=== PATIENT | female | born 1970 | race Caucasian/White ===

== ENCOUNTER → 2017-09-04 | Outpatient (CLI) | payer BC ==
[~2017-09-04] MED LIST: BCPILLS PO; FLUO40CA8 PO; OXYC-106 PO; SPRN100 PO; SUMA50TA15 PO; TOPI50TA16 PO
--- NOTE | 2017-09-04 15:24 | MAMMOGRAPHY REPORT ---
BILATERAL DIGITAL SCREENING MAMMOGRAM TOMOSYNTHESIS WITH CAD: 09/04/2017 CLINICAL HISTORY: Patient presents for routine screening. S/P bilateral augmentation. TECHNIQUE: Bilateral CC and MLO views of the breasts with and without implant displacement views were obtained. Tomosynthesis was also performed on the implant displaced views. Current study was also evaluated with a Computer Aided Detection (CAD) system. COMPARISON: Comparison is made to exams dated: 03/06/2011 mammogram and 01/24/2005 mammogram - [facility]. BREAST COMPOSITION: The tissue of both breasts is heterogeneously dense, which may obscure small mas ses. FINDINGS: Bilateral subpectoral saline implants are intact. There is fluctuating nodularity bilater ally, most likely representing fluctuating cysts. No suspicious mass, architectural distortion or clu ster of microcalcifications is seen. IMPRESSION: ACR BI-RADS CATEGORY 1: NEGATIVE There is no mammographic evidence of malignancy. A 1 year screening mammogram is recommended. The pa tient will receive written notification of the results. Approximately 10% of breast cancers are not detected with mammography. A negative mammographic report should not delay biopsy if a clinically suggestive mass is present. Neelima Brock M.D. ay/:09/04/2017 13:22:34 [employer] Helper: Sabrina GÓMEZ(Jose Carlos)(Tara), [facility] letter sent: Normal 1/2 BI-RADS Code: ACR BI-RADS Category 1: Negative
== END | disposition home or self-care (01) ==
LOC: C.MAMM 12:32
PROVIDERS: ATTEND Obstetrics & Gynecology
DX: Z12.31 Encounter for screening mammogram for malignant neoplasm of breast (principal); Z98.82 Breast implant status

== ENCOUNTER → 2017-09-04 | Outpatient (CLI) | payer BC | END | disposition home or self-care (01) | LOC: C.PAPS 15:34 | PROVIDERS: ATTEND Obstetrics & Gynecology | DX: Z01.419 Encounter for gynecological examination (general) (routine) without abnormal findings (principal) ==

== ENCOUNTER 2017-11-20 16:17 | Emergency (ER) | payer BC ==
[~2017-11-20] VITALS: Ht 165.1 cm; Wt 49.6 kg
[~2017-11-20 16:17] MED LIST changes: -OXYC-106 PO; +OXYC-594 PO
[2017-11-20 16:20] VITALS: TEMP 36.7
[2017-11-20] MEDS ORDERED: SODIUM CHLORIDE 0.9% 1000ML 1,000 ML IV SCH (16:27)
--- NOTE | 2017-11-20 16:43 | EMERGENCY ROOM VISIT NOTE ---
History Report prepared by Barby: Su Moreno Under the Supervision of: Dr. Destinee Morales M.D. First contact with patient: 16:26 Chief Complaint: STROKE SYMPTOMS Stated Complaint: SLURRED SPEECH, CONFUSION, DIZZY, MEMORY LOSS History of Present Illness The patient is a 46 year old female who presents to the Emergency Room with complaints of confusion and "being out of it" that primarily happened yesterday while at work. She reports she works in [place] and when she was driving to work, she took half a tablet of sumatriptan and a nausea medication for nausea and a headache. She states her headache worsened while she was at work and she began slurring her speech, getting confused, having a difficult time focusing, and becoming dizzy. The patient describes her episode as "being in a fog" and notes she lost 1 hour of her time. She states she did not "take too many medications" at once. She believes she took her sumatriptan and nausea medication 6 hours after her regularly scheduled medications. Pt's medications incluse topamax, percocet, adderall and prozac. Pt realized "how bad" she was at work yesterday in speaking with her colleagues today. She is concerned that she had a stroke. Source of History: patient Onset: yesterday Position: other (global) Quality: other (stroke symptoms) Associated Symptoms: No urinary symptoms Review of Systems See HPI for pertinent positives & negatives. A total of 10 systems reviewed and were otherwise negative. Past Medical & Surgical Medical Problems: (1) No significant past medical history Family History Not known due to adoption Social History Smoking Status: Never Smoker Smokeless Tobacco Use: No Alcohol Use: none Marital Status: Occupation Status: employed Current/Historical Medications Scheduled Amphetamine-Dextroamphetamine 20MG (Adderall 20MG), 20 MG PO DAILY Control Pills ( Control Pills), 1 TAB PO DAILY Fluoxetine (Prozac), 40 MG PO QD@08 Spironolactone (Spironolactone), 100 MG PO darshan Sumatriptan Succinate (Imitrex), 50 MG PO PRN Topiramate (Topamax), 50 MG PO BID Scheduled PRN Oxycodone/Acetaminophen 10MG/325MG (Percocet 10MG/325MG), 1 TAB PO QID PRN for Pain Allergies Coded Allergies: Gabapentin (Unverified Adverse Reaction, Severe, "EVERY SIDE AFFECT YOU CAN GET WITH THIS DRUG", 11/20/17) Pregabalin (Unverified Adverse Reaction, Severe, "EVERY SIDE AFFECT YOU CAN GET WITH THIS DRUG", 11/20/17) Physical Exam Vital Signs Date Time Temp Pulse Resp B/P (MAP) Pulse Ox O2 Delivery O2 Flow Rate FiO2 11/20/17 21:50 61 16 105/64 98 11/20/17 20:51 68 16 100/64 98 Room Air 11/20/17 19:51 79 18 120/67 99 Room Air 11/20/17 18:15 72 16 112/61 96 Room Air 11/20/17 16:59 98 Room Air 11/20/17 16:56 82 11/20/17 16:20 36.7 82 19 103/70 Room Air Physical Exam Vital signs reviewed. General: Well-appearing female, in no significant distress. HEENT: No scleral icterus, PERRLA, neck supple. Atraumatic. Cardiovascular: Regular rate and rhythm, no extra sounds. Pulmonary: Clear to auscultation bilaterally, normal work of breathing. Abdomen: Soft, nontender, nondistended, positive bowel sounds. Musculoskeletal: Atraumatic, no peripheral edema. Neurologic: Cerebellar exam in intact. Speech is clear. Patient awake alert and oriented x 3, full strength in all 4 extremities. Cranial nerves 2 through 12 grossly intact. No meningeal signs Skin: Warm, dry, no rash Medical Decision & Procedures ER Provider Diagnostic Interpretation: Radiology results as stated below per my review and radiologist interpretation: HEAD WITHOUT CONTRAST (CT) CLINICAL HISTORY: 46 years-old Female with Stroke. Acute strokelike symptoms TECHNIQUE: Multiple axial CT images of the head were obtained without contrast. A dose lowering technique was utilized adhering to the principles of ALARA. CT DOSE: 638.56 mGycm COMPARISON: None. FINDINGS: No acute intracranial hemorrhage, midline shift, intracranial mass, hydrocephalus, territorial ischemia or abnormal extra-axial collection. The calvarium is intact. The paranasal sinuses, mastoid air cells, and middle ear cavities are clear. IMPRESSION: No acute intracranial abnormality. The above report was generated using voice recognition software. It may contain grammatical, syntax or spelling errors. Electronically signed by: Selvin Strong M.D. 11/20/2017 5:17 PM Laboratory Results 11/20/17 16:52 Red Blood Count 4.15, Mean Corpuscular Volume 98.3, Mean Corpuscular Hemoglobin 33.5, Mean Corpuscular Hemoglobin Concent 34.1, Mean Platelet Volume 8.7, Neutrophils (%) (Auto) 54.3, Lymphocytes (%) (Auto) 36.3, Monocytes (%) (Auto) 6.3, Eosinophils (%) (Auto) 2.6, Basophils (%) (Auto) 0.3, Neutrophils # (Auto) 3.52, Lymphocytes # (Auto) 2.35, Monocytes # (Auto) 0.41, Eosinophils # (Auto) 0.17, Basophils # (Auto) 0.02 11/20/17 16:52 Test 11/20/17 16:52 11/20/17 17:45 11/20/17 19:43 White Blood Count 6.48 K/uL (4.8-10.8) Red Blood Count 4.15 M/uL (4.2-5.4) Hemoglobin 13.9 g/dL (12.0-16.0) Hematocrit 40.8 % (37-47) Mean Corpuscular Volume 98.3 fL (80-100) Mean Corpuscular Hemoglobin 33.5 pg (25-34) Mean Corpuscular Hemoglobin Concent 34.1 g/dl (32-36) Platelet Count 256 K/uL (130-400) Mean Platelet Volume 8.7 fL (7.4-10.4) Neutrophils (%) (Auto) 54.3 % Lymphocytes (%) (Auto) 36.3 % Monocytes (%) (Auto) 6.3 % Eosinophils (%) (Auto) 2.6 % Basophils (%) (Auto) 0.3 % Neutrophils # (Auto) 3.52 K/uL (1.4-6.5) Lymphocytes # (Auto) 2.35 K/uL (1.2-3.4) Monocytes # (Auto) 0.41 K/uL (0.11-0.59) Eosinophils # (Auto) 0.17 K/uL (0-0.5) Basophils # (Auto) 0.02 K/uL (0-0.2) RDW Standard Deviation 46.0 fL (36.4-46.3) RDW Coefficient of Variation 12.7 % (11.5-14.5) Immature Granulocyte % (Auto) 0.2 % Immature Granulocyte # (Auto) 0.01 K/uL (0.00-0.02) Prothrombin Time 10.1 SECONDS (9.0-12.0) Prothromb Time International Ratio 1.0 (0.9-1.1) Activated Partial Thromboplast Time 26.4 SECONDS (21.0-31.0) Partial Thromboplastin Ratio 1.0 Anion Gap 6.0 mmol/L (3-11) Est Creatinine Clear Calc Drug Dose 57.9 ml/min Estimated GFR () 84.2 Estimated GFR (Non- 72.7 BUN/Creatinine Ratio 12.7 (10-20) Calcium Level 9.3 mg/dl (8.5-10.1) Magnesium Level 1.9 mg/dl (1.8-2.4) Troponin I < 0.015 ng/ml (0-0.045) Urine Color YELLOW Urine Appearance CLEAR (CLEAR) Urine pH 6.0 (4.5-7.5) Urine Specific [place] 1.008 (1.000-1.030) Urine Protein NEG (NEG) Urine Glucose (UA) NEG (NEG) Urine Ketones NEG (NEG) Urine Occult Blood NEG (NEG) Urine Nitrite NEG (NEG) Urine Bilirubin NEG (NEG) Urine Urobilinogen NEG (NEG) Urine Leukocyte Esterase NEG (NEG) Urine Opiates Screen POS (NEG) Urine Methadone, Qualitative NEG (NEG) Urine Barbiturates NEG (NEG) Urine Phencyclidine (PCP) Level NEG (NEG) Ur Amphetamine/Methamphetamine POS (NEG) MDMA (Ecstasy) Screen NEG (NEG) Urine Benzodiazepines Screen NEG (NEG) Urine Cocaine Metabolite NEG (NEG) Urine Marijuana (THC) NEG (NEG) Laboratory results per my review. ECG Per My Interpretation Indication: other (stroke symptoms) Rate (beats per minute): 70 Rhythm: normal sinus Findings: no acute ischemic change, no ectopy ED Course 1627: Ordered Sodium Chloride 1000 ml @ 100 mls/hr IV 1634: Past medical records reviewed. The patient was evaluated in room B7. A complete history and physical examination was performed. 2100: Upon reevaluation, the patient appeared to have improvement of her symptoms. I discussed findings with her. She verbalized agreement of the treatment plan. She was discharged home. Medical Decision Differential diagnosis: Etiologies such as metabolic, infection, polypharmacy, hypoglycemia, electrolyte abnormalities, cardiac sources, intracerebral event, toxicologic, neurologic, as well as others were entertained. This pt was evaluated and appeared to be in no distress. IV access was obtained and lab work was drawn. PT was placed on the silver steward. EKG reveals no acute abnl. Lab work reveals no significant abnl. Urine tox is positive for amphetamines and opiates, consistent with her medication list. CT scan of the head is negative. I suspect the patient's epsode yesterday was related to polypharmacy of imitrex, topamax, adderall, prozac, "nausea medication," and percocet. Pt was again reminded not to drive after taking her medications. She was advised to speak with her doctor regarding the complicated med list. Pt will return to the ED for worsening of symptoms or any medical concerns. Medication Reconcilliation Current Medication List: was personally reviewed by me Blood Pressure Screening Patient's blood pressure: Normal blood pressure Blood pressure disposition: Did not require urgent referral Impression Primary Impression: Polypharmacy Scribe Attestation The scribe's documentation has been prepared under my direction and personally reviewed by me in its entirety. I confirm that the note above accurately reflects all work, treatment, procedures, and medical decision making performed by me. Departure Information Dispostion Home / Self-Care Referrals Ying Brush D.O. (PCP) Forms HOME CARE DOCUMENTATION FORM, IMPORTANT VISIT INFORMATION Patient Instructions My [facility] Additional Instructions Diagnosis: Polypharmacy Please minimize the as needed medications that you take. When absolutely necessary, be sure to stagger each medication by at least 2 hours to avoid oversedation. Use caution in particular when taking Topamax, Percocet, Adderall, Imitrex and your nausea medication) Do not drive while taking these medications (Percocet, Imitrex) Follow-up with your primary care physician this week to review your medication list. Return to the emergency department for worsening of symptoms or new medical concerns.
[2017-11-20 16:59] VITALS: O2SAT 98; Ht 165.1 cm; Wt 49.6 kg
[2017-11-20 17:06] LABS: BASO % 0.3 %; BASO ABS # 0.02 K/uL (0-0.2); EOS % 2.6 %; EOS ABS # 0.17 K/uL (0-0.5); HEMATOCRIT 40.8 % (37-47); HEMOGLOBIN 13.9 g/dL (12.0-16.0); IG# 0.01 K/uL (0.00-0.02); LYMPH % 36.3 %; LYMPH ABS # 2.35 K/uL (1.2-3.4); MEAN CELL VOLUME 98.3 fL (80-100); MEAN CORPUSCULAR HEMOGLOBIN 33.5 pg (25-34); MEAN CORPUSCULAR HGB CONC 34.1 g/dl (32-36); MEAN PLATELET VOLUME 8.7 fL (7.4-10.4); MONO % 6.3 %; MONO ABS # 0.41 K/uL (0.11-0.59); NEUT % 54.3 %; NEUT ABS # 3.52 K/uL (1.4-6.5); PLATELET COUNT 256 K/uL (130-400); RED CELL DISTRIBUTION WIDTH CV 12.7 % (11.5-14.5); WHITE BLOOD COUNT 6.48 K/uL (4.8-10.8)
[2017-11-20 17:18] LABS: PTT PATIENT 26.4 SECONDS (21.0-31.0)
--- NOTE | 2017-11-20 17:19 | DIAGNOSTIC IMAGING REPORT ---
HEAD WITHOUT CONTRAST (CT) CLINICAL HISTORY: 46 years-old Female with Stroke. Acute strokelike symptoms TECHNIQUE: Multiple axial CT images of the head were obtained without contrast. A dose lowering technique was utilized adhering to the principles of ALARA. CT DOSE: 638.56 mGycm COMPARISON: None. FINDINGS: No acute intracranial hemorrhage, midline shift, intracranial mass, hydrocephalus, territorial ischemia or abnormal extra-axial collection. The calvarium is intact. The paranasal sinuses, mastoid air cells, and middle ear cavities are clear. IMPRESSION: No acute intracranial abnormality. The above report was generated using voice recognition software. It may contain grammatical, syntax or spelling errors. Electronically signed by: Selvin Strong M.D. 11/20/2017 5:17 PM Dictated Date/Time: 11/20/2017 5:16 PM
[2017-11-20 17:31] LABS: BLOOD UREA NITROGEN 12 mg/dl (7-18); CALCIUM 9.3 mg/dl (8.5-10.1); CARBON DIOXIDE 26 mmol/L (21-32); CREATININE 0.93 mg/dl (0.60-1.20); GLUCOSE 96 mg/dl (70-99); POTASSIUM 3.5 mmol/L (3.5-5.1); SODIUM 138 mmol/L (136-145)
[2017-11-20] MEDS ORDERED: AMPH20TA2 PO (21:25)
[2017-11-20 21:50] VITALS: BP 105/64; PULSE 61; O2SAT 98
== END 2017-11-20 21:50 | disposition home or self-care (01) ==
LOC: C.EDB 16:18
DX: T88.7XXA Unspecified adverse effect of drug or medicament, initial encounter (principal); X58.XXXA Exposure to other specified factors, initial encounter; Z79.3 Long term (current) use of hormonal contraceptives; Z79.899 Other long term (current) drug therapy; Z88.6 Allergy status to analgesic agent

== ENCOUNTER 2023-07-03 06:15 | Inpatient (IN) ==
--- NOTE | 2023-07-03 07:29 | Emergency Department Note ---
ED Provider Note History of Present Illness Chief Complaint: Vomiting Stated Complaint: VOMITING SINCE SEPTEMBER, ABD PAIN, ANXIETY Time Seen by Provider: 07/03/23 06:59 52-year-old female who presents the emergency department with her daughter for evaluation of persistent abdominal pain, vomiting, anxiety and depression. The patient reports that she has followed with her family doctor, gastroenterology and psychiatrist for her symptoms. The patient reports that she even saw a informatica mdm developer. The patient believes that her symptoms are somewhat related to trazodone use that she was started on 6 months ago. The patient reports that she has been switched from and to different psychiatric medications, which also was not helping. The patient reports that she has been able to sleep now for several days. The patient reports diarrhea. She denies any urinary symptoms, other than low urine output. The patient reports that she was scheduled for a gastroenterology appointment today, but unfortunately she canceled because she "I did not know what to do". She is scheduled for an upper and lower endoscopy next week. The patient reports that she is no longer able to tolerate any foods or liquids at this point, and currently rates her discomfort a 7 out of 10. The daughter is concerned for her safety at home, as she lives alone with her dog. Home Medications Medication Instructions Recorded Confirmed Type Wheelchair (Manual) #1 ea 08/30/22 06/07/23 Rx sumatriptan succinate 50 mg tablet 50 mg PO UD PRN Migraine Headache 08/30/22 07/03/23 History (Imitrex) clonazepam 1 mg tablet 1 mg PO DAILY 05/17/23 07/03/23 History oxycodone-acetaminophen 10 mg-325 1 tab PO Q8H PRN Pain 05/17/23 07/03/23 History mg tablet trazodone 150 mg tablet 150 mg PO DAILY 05/17/23 07/03/23 History buspirone 30 mg tablet 15 mg PO BID 06/07/23 07/03/23 History fluoxetine 20 mg capsule (Prozac) 40 mg PO DAILY 06/07/23 07/03/23 History topiramate 100 mg capsule,extended 200 mg PO BID 06/07/23 07/03/23 History release 24 hr ondansetron 8 mg disintegrating 8 mg PO Q12H #60 tabs 06/11/23 07/03/23 Rx tablet peg 3350-electrolytes 236 240 ml PO Q10M #4,000 mL 06/27/23 07/03/23 Rx gram-22.74 gram-6.74 gram-5.86 gram solution (GaviLyte-G) Allergies Allergy/AdvReac Type Severity Reaction Status Date / Time gabapentin Allergy Severe "EVERY Verified 06/07/23 14:13 SIDE AFFECT YOU CAN GET WITH THIS DRUG" pregabalin Allergy Severe "EVERY Verified 06/07/23 14:13 SIDE AFFECT YOU CAN GET WITH THIS DRUG" Past Med/Surg History Medical History Tardive dyskinesia Raynaud disease Osteoarthritis Kidney stones History of stomach ulcers Chronic steroid use 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 Attention deficit disorder (ADD) not currently taking adderall Anxiety Depression Stroke 11/2017--unknown cause, no deficits--no neurologist Migraine History of COVID-19 03/2022--mild symptoms, no symptoms now Chronic prescription opiate use Chronic pain cervical spine pain Ankle fracture, right Surgical History History of dilatation and curettage History of esophagogastroduodenoscopy (EGD) History of tooth extraction Family History Other Family history not known due to adoption Social History Smoking Status: Never smoker Second Hand Exposure: No; Do You Dip or Chew Tobacco: No; Hx Alcohol Use: No Hx Substance Use: Yes Substance Use Type Other:: medicinal mrijuana Preferred Language: Afghan Communication Ability: Effective Gastroenterology Nurse Required: No Beliefs That Will Affect Care: None Current Living Situation: Spouse Current Living Situation Comment: Lives with and daughter Other Information That Helps Us Care for You: No Feels Safe at Home: Yes Assistive Devices: Cane and Contacts Physical Exam Vital Signs Vital Signs - 24 hr 07/03/23 06:19 Temperature 36.6 C Temperature Source Temporal Artery Scan Pulse Rate 90 Pulse Rhythm Regular Pulse Strength Normal Respiratory Rate 28 H Respiratory Effort / Characteristics Non-Labored Spontaneous Respiratory Depth Normal Respiratory Pattern Regular Blood Pressure 157/95 H Blood Pressure Mean 115 Blood Pressure Position Sitting Pulse Oximetry 100 Oxygen Delivery Method Room Air Sepsis Recent Fever Within 48 Hours No Sepsis New/Unexplained Change in Mental Status No Sepsis Action Taken by Nursing No Action Required CONSTITUTIONAL: Cachectic appearing female who appears in acute distress. HEENT: Mucous membranes are dry. No scleral icterus or conjunctival injection. RESPIRATORY: Clear to auscultation bilaterally with no wheezing, crackles, rhonchi or stridor. CARDIOVASCULAR: Regular rate and rhythm with no murmurs, rubs or gallops. GASTROINTESTINAL: Bowel sounds present in all quadrants. Patient has diffuse abdominal tenderness to palpation without any focal findings. MUSCULOSKELETAL: No erythema, soft tissue edema or bogginess over major joints. INTEGUMENTARY: No rash or other significant dermatologic conditions noted. HEMATOLOGIC: No ecchymosis or petechiae. PSYCHIATRIC: Patient has a labile affect, frequently crying. NEUROLOGIC: No focal neurologic deficits noted. Course Course Patient history and physical exam were performed. Nurses notes were reviewed. Vital signs were reviewed from triage, showing an elevated blood pressure and respiratory rate. I also reviewed outside medical records, including her GI note from 06/07/2023. Lab work was suggested, with intentions to order an EGD and colonoscopy, with follow-up in the office upon completion of all testing. The patient reports that she does have her endoscopy studies next week. It is also noted that the patient was seen by rheumatology on 05/17/2023, with concerns for the patient's wellbeing and voicing suicidal thoughts. It was recommended at that time that she seek further emergency department evaluation, but declined. It is noted that the informatica mdm developer did reach out to her PCP to discuss their concerns for her weight loss, GI symptoms and suicidal ideations. The informatica mdm developer also contacted her psychiatrist, Dr. Truong. No more recent PCP notes were found except for her prior visit on 05/24/2023. Upon my evaluation, the patient was requesting admission until her endoscopy studies next week. I explained that the decision for admission would not be mine, unless she has laboratory or imaging studies to warrant admission. IV access was established, and labs were drawn. The patient was administered IV Toradol and Phenergan for pain and nausea. This provided excellent relief of the patient's symptoms. The patient was also hydrated with a liter of normal saline. Review of labs shows hypokalemia with a potassium of 2.9. Magnesium was normal. CBC and remaining electrolytes were otherwise grossly normal. CT of the abdomen and pelvis with IV contrast does not show any concerning findings, given limitation secondary to paucity of abdominal fat. An ECG was also performed, showing a sinus bradycardia with short MD and nonspecific T wave abnormality. The patient was placed on a remote computer terminal operator while in the emergency department. Findings were discussed with the patient. An order was placed for a potassium rider. The case was also discussed with Dr. Valdes, ED attending physician, who agrees with hospitalist consult. The case was then discussed with the [facility] Hospitalist service, who evaluated the patient, and agrees with admission. Please see their dictation for further treatment and final disposition. Administered Medications Buspirone HCl (Buspirone 15 Mg Tab) 15 mg PO BID [facility] Stop: 08/02/23 20:59 Last Admin: 07/04/23 08:00 Dose: 15 mg Documented By: [facility] Admin: 07/03/23 19:33 Dose: Not Given Documented By: JEAN CLAUDE Clonazepam (Clonazepam 1 Mg Tab) 1 mg PO DAILY JEAN PIERRE Stop: 08/03/23 08:59 Last Admin: 07/04/23 08:03 Dose: 1 mg Documented By: [facility] Diclofenac Sodium (Diclofenac Sod 1% Gel 100 Gm Tube) 2 gm EXT QID [facility]; Protocol Stop: 08/02/23 20:59 Last Admin: 07/04/23 07:59 Dose: 2 gm Documented By: [facility] Admin: 07/03/23 21:29 Dose: 2 gm Documented By: JEAN CLAUDE Fluoxetine HCl (Fluoxetine Hcl 20 Mg Cap) 40 mg PO DAILY [facility] Stop: 08/03/23 08:59 Last Admin: 07/04/23 08:00 Dose: 40 mg Documented By: [facility] Lactated Ringer's (Lr) 1,000 mls @ 125 mls/hr IV .Q8H [facility] Stop: 08/02/23 10:52 Last Admin: 07/04/23 08:00 Dose: 125 mls/hr Documented By: Infusion: 07/04/23 03:31 Dose: Infused Documented By: [facility] Admin: 07/03/23 19:31 Dose: 125 mls/hr Documented By: JEAN CLAUDE Infusion: 07/03/23 19:31 Dose: Infused Documented By: JEAN CLAUDE Admin: 07/03/23 13:42 Dose: 125 mls/hr Documented By: [facility] Miscellaneous (Topiramate ~ Order Awaiting Action) 1 each N/A QS JEAN PIERRE Stop: 08/02/23 15:59 Last Admin: 07/04/23 08:00 Dose: Not Given Documented By: [facility] Admin: 07/03/23 23:21 Dose: Not Given Documented By: JEAN CLAUDE Admin: 07/03/23 16:56 Dose: Not Given Documented By: [facility] Ondansetron HCl (Ondansetron Inj 2 Mg/Ml 2 Ml Vial) 4 mg IV Q6H PRN PRN Reason: Nausea Stop: 08/02/23 10:52 Last Admin: 07/04/23 05:20 Dose: 4 mg Documented By: JEAN CLAUDE Admin: 07/03/23 21:23 Dose: 4 mg Documented By: Admin: 07/03/23 13:51 Dose: 4 mg Documented By: [facility] Oxycodone/Acetaminophen (Oxycodone/Acetaminophen 10-325 Tab) 1 tab PO Q8H PRN PRN Reason: Severe Pain (Scale 7, 8, 9,10) Stop: 07/17/23 10:52 Last Admin: 07/04/23 07:59 Dose: 1 tab Documented By: [facility] Admin: 07/03/23 21:23 Dose: 1 tab Documented By: Admin: 07/03/23 13:51 Dose: 1 tab Documented By: [facility] Trazodone HCl (Trazodone Hcl 50 Mg Tab) 150 mg PO DAILY JEAN PIERRE Stop: 08/03/23 08:59 Last Admin: 07/04/23 08:00 Dose: 150 mg Documented By: [facility] Discontinued Medications Sodium Chloride (Nss) 1,000 mls @ 999 mls/hr IV .Q1H1M STA Stop: 07/03/23 08:22 Last Infusion: 07/03/23 08:42 Dose: Infused Documented By: Admin: 07/03/23 07:47 Dose: 999 mls/hr Documented By: HEMANT Promethazine HCl (Phenergan) 25 mg in 51 mls @ 204 mls/hr IV NOW STA Stop: 07/03/23 07:36 Last Infusion: 07/03/23 08:41 Dose: Infused Documented By: Admin: 07/03/23 07:46 Dose: 204 mls/hr Documented By: HEMANT Potassium Chloride (K Jacobo / Wtr) 10 meq in 100 mls @ 100 mls/hr IV Q1H STA Stop: 07/03/23 10:01 Last Infusion: 07/03/23 13:45 Dose: Infused Documented By: [facility] Admin: 07/03/23 10:56 Dose: 100 mls/hr Documented By: Edwin Potassium Chloride (K Jacobo / Wtr) 10 meq in 100 mls @ 100 mls/hr IV Q1H JEAN PIERRE; Protocol Stop: 07/03/23 21:44 Last Infusion: 07/04/23 01:23 Dose: Infused Documented By: JEAN CLAUDE Admin: 07/03/23 23:20 Dose: 50 mls/hr Documented By: JEAN CLAUDE Infusion: 07/03/23 23:20 Dose: Infused Documented By: JEAN CLAUDE Admin: 07/03/23 21:24 Dose: 55 mls/hr Documented By: JEAN CLAUDE Infusion: 07/03/23 21:23 Dose: Infused Documented By: JEAN CLAUDE Admin: 07/03/23 19:31 Dose: 55 mls/hr Documented By: JEAN CLAUDE Infusion: 07/03/23 19:31 Dose: Infused Documented By: JEAN CLAUDE Infusion: 07/03/23 17:57 Dose: 55 mls/hr Documented By: Admin: 07/03/23 17:53 Dose: 60 mls/hr Documented By: CRYSTAL Ioversol (Optiray 320 100ml) 94 ml IV ONCE ONE Stop: 07/03/23 08:34 Last Admin: 07/03/23 08:34 Dose: 94 ml Documented By: MARCO A Ketorolac Tromethamine (Ketorolac Tromethamine 15 Mg/Ml Vial) 10 mg IV NOW ONE Stop: 07/03/23 07:23 Last Admin: 07/03/23 07:46 Dose: 10 mg Documented By: HEMANT Medical Decision Making Medical Records Attestation: I reviewed the patient's medical records. Home Medications was personally reviewed by me Laboratory Data Attestation: I reviewed the patient's lab results. 07/04/23 07:31 07/03/23 07:05 Lab Results 07/03/23 Range/Units 07:05 WBC 7.13 (4.8-10.8) K/ul RBC 4.74 (4.20-5.40) M/uL Hgb 14.9 (12.0-16.0) g/dl Hct 42.8 (37.0-47.0) % MCV 90.3 (80.0-100.0) fL MCH 31.4 (25.0-34.0) pg MCHC 34.8 (32.0-36.0) g/dL RDW Std Deviation 43.8 (36.4-46.3) fL RDW Coeff of Doroteo 13.2 (11.5-14.5) % Plt Count 260 (130-400) K/uL MPV 9.8 (9.4-12.4) fL Immature Gran % (Auto) 0.4 % Neut % (Auto) 75.9 % Lymph % (Auto) 17.0 % [place] % (Auto) 4.8 % Eos % (Auto) 1.3 % Baso % (Auto) 0.6 % Neut # (Auto) 5.42 (1.40-6.50) K/uL Lymph # (Auto) 1.21 (1.20-3.40) K/uL [place] # (Auto) 0.34 (0.11-0.59) K/uL Eos # (Auto) 0.09 (0.00-0.50) K/uL Baso # (Auto) 0.04 (0.00-0.20) K/uL Immature Gran # (Auto) 0.03 (0.01-0.20) K/uL ESR 5 (0-30) mm/hr PT 10.9 (9.0-12.0) Seconds INR 1.0 (0.9-1.1) Sodium 141 (136-145) mmol/L Potassium 2.9 L (3.5-5.1) mmol/L Chloride 110 H (98-107) mmol/L Carbon Dioxide 21 (21-32) mmol/L Anion Gap 10 (3-11) BUN 10 (6-23) mg/dl Creatinine 0.97 (0.6-1.2) mg/dl Est Cr Clr Drug Dosing 45.8 ml/min Est GFR ( Amer) 76.7 ml/min Est GFR (Non-Af Amer) 66.2 ml/min BUN/Creatinine Ratio 10.3 (10-20) Glucose 100 H (70-99(Fasting)) mg/dl Calcium 9.6 (8.6-10.3) mg/dl Phosphorus 2.2 L (2.5-4.9) mg/dl Magnesium 1.8 (1.7-2.4) mg/dl Total Bilirubin 0.8 (0.2-1.0) mg/dl AST 17 (13-39) U/L ALT 11 (7-52) U/L Alkaline Phosphatase 53 (34-104) U/L Troponin I High Sens 3.6 (0-14) pg/ml C-Reactive Protein < 0.50 (0-0.5) mg/dl Total Protein 7.1 (6.0-8.3) gm/dl Albumin 4.8 (3.4-5.0) gm/dl Globulin 2.3 L (2.5-4.0) gm/dl Albumin/Globulin Ratio 2.1 H (0.9-2) Lipase 32 (11-82) U/L Vitamin B12 378 (180-914) pg/ml 25-OH Vitamin D Total 25.8 L (30-100) ng/ml TSH 2.078 (0.300-4.500) uIu/ml Imaging Data Attestation: I personally reviewed and interpreted this imaging study as follows: My Impression: My interpretation of a CT with IV contrast of the abdomen and pelvis does not show any obvious bowel obstruction, constipation, obvious diverticulitis or appendicitis. Examination was limited secondary to paucity of abdominal fat. Radiologist report was also reviewed with concurrence. Radiologist's Impression: Abdomen/Pelvis CT 07/03/23 07:23 CT abd pelvis IV con only CLINICAL HISTORY: Central abd pain TECHNIQUE: Helical axial images of the abdomen and pelvis were obtained and displayed. Automated dose lowering techniques and/or adjustment according to patient size were utilized for this exam. This exam was performed with intravenous contrast. CT DOSE: 294.42 mGy.cm COMPARISON: Comparison is made to CT abdomen pelvis 06/07/2023 FINDINGS: Lower chest: Bibasilar atelectasis versus scarring is seen. Liver: Unremarkable. No focal lesions are seen. Gallbladder and biliary tree: No calcified gallstones. Normal caliber wall. No intra- or extrahepatic biliary ductal dilation. Pancreas: Unremarkable, no focal lesions. Spleen: Unremarkable. Adrenals: Unremarkable. Kidneys and ureters: Unremarkable. Bladder: Unremarkable. Reproductive organs: Unremarkable. Bowel: The appendix is not well-visualized, however no secondary signs for appendicitis are seen. Lymph nodes Retroperitoneal: Unremarkable. Pelvic: Unremarkable. Mesenteric: Unremarkable. Peritoneum: Trace free fluid in the pelvis is likely physiologic. Vessels: Unremarkable. Abdominal wall: Unremarkable. Bones: Degenerative changes in the visualized spine. IMPRESSION: Evaluation is limited by a paucity of abdominal fat. Within this limit, and there is no acute abnormality, in particular no evidence of bowel obstruction. ACT 112: Negative or not required by law. Electronically signed by: Rohan Gutiérrez M.D. 07/03/2023 9:14 AM ECG Data Attestation: I personally reviewed and interpreted this ECG as follows: Indication: + abdominal pain, + nausea and + vomiting Rate (beats per minute): 59 Rhythm: + sinus bradycardia ECG Intervals/blocks: + Short MD ECG [place]: + Normal ECG ST segments: + Normal ST segments Comparison ECG Date: from (10/27/2022) Change: no significant change MDM Narrative Cardiac monitoring: An order was placed for continuous cardiac monitoring. The monitor shows a rate of 59 bpm with a sinus bradycardic rhythm. public relations specialist history was reviewed throughout the evaluation, and no dysrhythmias were noted. See ED Course section for further details of today's visit. The patient presents with complaint of ongoing generalized abdominal pain, nausea, vomiting and diarrhea. The patient reports the symptoms have been going on for months. She has had further follow-up with her PCP, gastroenterology, psychiatrist and rheumatology. The patient was scheduled for a GI appointment today, but canceled so that she may come to the emergency department for further evaluation. Patient is scheduled for EGD and colonoscopy studies next week. Today's workup shows a hypokalemia, likely secondary to vomiting and diarrhea. Potassium repletion was ordered. CT imaging of the abdomen did not show any concerning findings. The case was further discussed with the hospitalist service, who has agreed to admission for further evaluation and management. Hopefully the patient will have further GI and psychiatric consultation during admission. I do feel that the patient's condition is multifactorial. Impression Acute hypokalemia, Nausea, vomiting and diarrhea, Unintentional weight loss, Depression Discharge Plan Visit Data Chief Complaint: Vomiting Stated Complaint: VOMITING SINCE SEPTEMBER, ABD PAIN, ANXIETY ED Provider: Zhao Valdes ED Midlevel Provider: Ronen Holland Discharge Problem: Acute hypokalemia, Nausea, vomiting and diarrhea, Unintentional weight loss, Depression Patient Disposition: Admitted As Inpatient Discharge Instructions Interventions: ED Discharge Assessment Last Done: 07/03/23 10:25 Discharge Problem: Depression Qualifiers: Depression Type: major depressive disorder Major depression recurrence: u nspecified whether recurrent Active/Remission status: currently active Major depression episode severity: severe Psychotic features: without psychotic features Qualified Code(s): F32.2 - Major depressive disorder, single episode, severe without psychotic features
[2023-07-03 07:42] LABS: Basophils # (auto) 0.04 K/uL (0.00-0.20); Basophils % (auto) 0.6 %; Eosinophils # (auto) 0.09 K/uL (0.00-0.50); Eosinophils % (auto) 1.3 %; Hematocrit (blood only) 42.8 % (37.0-47.0); Hemoglobin 14.9 g/dl (12.0-16.0); Immature Granulocytes # (auto) 0.03 K/uL (0.01-0.20); Immature Granulocytes % (auto) 0.4 %; Lymphocytes # (auto) 1.21 K/uL (1.20-3.40); Mean Corpuscular Hemoglobin 31.4 pg (25.0-34.0); Mean Corpuscular Hgb Conc 34.8 g/dL (32.0-36.0); Mean Corpuscular Volume 90.3 fL (80.0-100.0); Mean Platelet Volume 9.8 fL (9.4-12.4); Monocytes # (auto) 0.34 K/uL (0.11-0.59); Monocytes % (auto) 4.8 %; Neutrophils # (auto) 5.42 K/uL (1.40-6.50); Neutrophils % (auto) 75.9 %; Platelet Count 260 K/uL (130-400); RDW Coefficient of Variation 13.2 % (11.5-14.5); RDW Standard Deviation 43.8 fL (36.4-46.3); Red Blood Count 4.74 M/uL (4.20-5.40); White Blood Count 7.13 K/ul (4.8-10.8)
[2023-07-03] MEDS: PROMETHAZINE 25 MG/51 ML BAG IV STA (07:46)
[2023-07-03] MEDS: KETOROLAC TROMETHAMINE 15 MG/ML VIAL IV ONE (07:46)
[2023-07-03] MEDS: SODIUM CHLORIDE 0.9% 1,000 ML IV STA (07:47)
[2023-07-03 07:58] LABS: Alanine Aminotransferase 11 U/L (7-52); Albumin Globulin Ratio 2.1 (0.9-2); Albumin Level 4.8 gm/dl (3.4-5.0); Alkaline Phosphatase 53 U/L (34-104); Anion Gap 10 (3-11); Aspartate Aminotransferase 17 U/L (13-39); BUN Creatinine Ratio 10.3 (10-20); Bilirubin,Total 0.8 mg/dl (0.2-1.0); Blood Urea Nitrogen 10 mg/dl (6-23); Calcium 9.6 mg/dl (8.6-10.3); Carbon Dioxide 21 mmol/L (21-32); Chloride 110 mmol/L (98-107); Creatinine Clr Calc Pharmacy 45.8 ml/min; Est GFR (African American) 76.7 ml/min; Est GFR (Non-African American) 66.2 ml/min; Globulin 2.3 gm/dl (2.5-4.0); Glucose 100 mg/dl (70-99(Fasting)); Lipase 32 U/L (11-82); Potassium 2.9 mmol/L (3.5-5.1); Sodium 141 mmol/L (136-145); Total Protein 7.1 gm/dl (6.0-8.3)
[2023-07-03 08:01] LABS: Prothrombin Time 10.9 Seconds (9.0-12.0)
[2023-07-03 08:03] LABS: Troponin I High Sensitivity 3.6 pg/ml (0-14)
[2023-07-03] MEDS: OPTIRAY 320 100ml IV ONE (08:34)
--- NOTE | 2023-07-03 09:16 | CT Scan Report ---
CT abd pelvis IV con only CLINICAL HISTORY: Central abd pain TECHNIQUE: Helical axial images of the abdomen and pelvis were obtained and displayed. Automated dose lowering techniques and/or adjustment according to patient size were utilized for this exam. This e xam was performed with intravenous contrast. CT DOSE: 294.42 mGy.cm COMPARISON: Comparison is made to CT abdomen pelvis 06/07/2023 FINDINGS: Lower chest: Bibasilar atelectasis versus scarring is seen. Liver: Unremarkable. No focal lesions are seen. Gallbladder and biliary tree: No calcified gallstones. Normal caliber wall. No intra- or extrahepatic biliary ductal dilation. Pancreas: Unremarkable, no focal lesions. Spleen: Unremarkable. Adrenals: Unremarkable. Kidneys and ureters: Unremarkable. Bladder: Unremarkable. Reproductive organs: Unremarkable. Bowel: The appendix is not well-visualized, however no secondary signs for appendicitis are seen. Lymph nodes Retroperitoneal: Unremarkable. Pelvic: Unremarkable. Mesenteric: Unremarkable. Peritoneum: Trace free fluid in the pelvis is likely physiologic. Vessels: Unremarkable. Abdominal wall: Unremarkable. Bones: Degenerative changes in the visualized spine. IMPRESSION: Evaluation is limited by a paucity of abdominal fat. Within this limit, and there is no acute abnorma lity, in particular no evidence of bowel obstruction. ACT 112: Negative or not required by law. Electronically signed by: Rohan Gutiérrez M.D. 07/03/2023 9:14 AM
[2023-07-03 10:37] LABS: Magnesium 1.8 mg/dl (1.7-2.4)
[2023-07-03] MEDS ORDERED: ACETAMINOPHEN 325 MG TAB PO PRN (10:53)
[2023-07-03] MEDS ORDERED: ALUMINUM/MAGNESIUM SUSP 30 ML UDC PO PRN (10:53)
[2023-07-03] MEDS ORDERED: MAGNESIUM HYDROXIDE SUSP 30 ML UDC PO PRN (10:53)
[2023-07-03] MEDS: POTASSIUM CHLORIDE / WTR 10 MEQ/100 ML PLCT IV STA (10:56)
[2023-07-03 11:54] LABS: Appearance Urine Clear (Clear); Bacteria Urine Automated Negative (Negative); Bilirubin Urine Negative (Negative); Blood Urine Negative (Negative); Color Urine Yellow; Epithelial Cell Urine Auto 20-30 /lpf (0-5); Glucose Urine UA Negative (Negative); Ketones Urine 1+ (Negative); Leukocyte Esterase Urine Negative (Negative); Nitrite Urine Negative (Negative); Protein Urine Trace (Negative); RBC Urine Automated 0-4 /hpf (0-4); Specific Gravity Urine > 1.045 (1.000-1.030); Urobilinogen Urine Negative (Negative)
[2023-07-03 12:26] LABS: Amphetamines+Metham, Urine Neg (Neg); Barbiturates, Urine Neg (Neg); Benzodiazepine, Urine Neg (Neg); Cocaine, Urine Neg (Neg); MDMA (Ecstacy), Urine Neg (Neg); Marijuana, Urine Pos (Neg); Methadone, Urine Neg (Neg); Opiate, Urine Neg (Neg); Phencyclidine, Urine Neg (Neg)
--- NOTE | 2023-07-03 12:42 | Gastrointestinal Consultation ---
Date of Consultation July 03, 2023 Assessment & Plan (1) Unintentional weight loss: (2) Nausea, vomiting and diarrhea: (3) Acute hypokalemia: Plan Patient is a 52-year-old female with nausea vomiting and diarrhea admitted with hypokalemia and unintentional weight loss. Prior CT imaging suggestive of possible dysmotility which may be worsened with trazodone. 1. Will obtain KUB to evaluate bowel gas pattern. 2. Continue supportive measures with antiemetics primary team. 3. Proceed with EGD and colonoscopy as scheduled on Saturday with Dr. Luna. 4. Agree with electrolyte repletion as ordered. Thank you for allowing us to participate in the care of this patient. If you have any questions or concerns, please do not hesitate to contact us. Supervising Physician Co-Signing Physician Notes Agree with RORY Colunga as above Abd: Soft, NT, ND, +BS Continue current therapy and supportive care Outpatient EGD/Colon with Dr. Luna on Saturday History of Present Illness Reason for Consultation: Intractable nausea and diarrhea Requesting Physician: Dr. Lorenzo Attending Physician: Dallas Lorenzo DO History of Present Illness Patient is a 52-year-old female with a history of peptic ulcer disease, anxiety, depression, and Raynaud's disease being referred for evaluation of abdominal pain, and abnormal weight loss evaluated initially by me in consultation in the office on 06/07/2023. At that time, I had ordered a CT of the abdomen and pelvis due to the profound weight loss. CT impression as follows: "IMPRESSION: 1. The stomach is distended and filled with oral contrast. However, no evidence for gastric outlet obstruction. A gastroparesis could result in this appearance. Clinical correlation recommended. 2. Questionable thickening of the rectum is likely due to underdistention. 3. No evidence for bowel obstruction. 4. No hydronephrosis. 5. Bladder wall thickening. This is similar to the ultrasound and is likely chronic. Recommend correlation with urinalysis." She was in the process of being arranged for an upper and lower endoscopy at that time especially in light of CT findings. She is scheduled for both procedures to be performed on July 08. She has presented to the ER prior to testing due to reports of worsening fatigue and weakness and inability to tolerate oral intake. She endorses mid abdominal pain that is sharp in nature. States she has days with no bowel movement but when she does defecate, it has always diarrhea, liquidy in nature. No melena, hematochezia or hematemesis. On arrival, she was found to be hypokalemic with a potassium of 2.9. She also did have a repeat CTAP with IV enhancement. The remainder of labs and CT were unremarkable. Symptoms have been ongoing chronically for the past 6 months and worsened since she has been on trazodone per her report. Allergies Allergy/AdvReac Type Severity Reaction Status Date / Time gabapentin Allergy Severe "EVERY Verified 06/07/23 14:13 SIDE AFFECT YOU CAN GET WITH THIS DRUG" pregabalin Allergy Severe "EVERY Verified 06/07/23 14:13 SIDE AFFECT YOU CAN GET WITH THIS DRUG" Home Medications Medication Instructions Recorded Confirmed Type Wheelchair (Manual) #1 ea 08/30/22 06/07/23 Rx sumatriptan succinate 50 mg tablet 50 mg PO UD PRN Migraine Headache 08/30/22 07/03/23 History (Imitrex) clonazepam 1 mg tablet 1 mg PO DAILY 05/17/23 07/03/23 History oxycodone-acetaminophen 10 mg-325 1 tab PO Q8H PRN Pain 05/17/23 07/03/23 History mg tablet trazodone 150 mg tablet 150 mg PO DAILY 05/17/23 07/03/23 History buspirone 30 mg tablet 15 mg PO BID 06/07/23 07/03/23 History fluoxetine 20 mg capsule (Prozac) 40 mg PO DAILY 06/07/23 07/03/23 History topiramate 100 mg capsule,extended 200 mg PO BID 06/07/23 07/03/23 History release 24 hr ondansetron 8 mg disintegrating 8 mg PO Q12H #60 tabs 06/11/23 07/03/23 Rx tablet peg 3350-electrolytes 236 240 ml PO Q10M #4,000 mL 06/27/23 07/03/23 Rx gram-22.74 gram-6.74 gram-5.86 gram solution (GaviLyte-G) Patient History Medical History Tardive dyskinesia Raynaud disease Osteoarthritis Kidney stones History of stomach ulcers Chronic steroid use 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 Attention deficit disorder (ADD) not currently taking adderall Anxiety Depression Stroke 11/2017--unknown cause, no deficits--no neurologist Migraine History of COVID-19 03/2022--mild symptoms, no symptoms now Chronic prescription opiate use Chronic pain cervical spine pain Ankle fracture, right Surgical History History of dilatation and curettage History of esophagogastroduodenoscopy (EGD) History of tooth extraction Family History Other Family history not known due to adoption Social History Smoking Status: Never smoker Second Hand Exposure: No; Do You Dip or Chew Tobacco: No; Hx Alcohol Use: No Hx Substance Use: Yes Substance Use Type Other:: medicinal mrijuana Preferred Language: Kosovan Communication Ability: Effective Police Commanding Officer Required: No Beliefs That Will Affect Care: None Current Living Situation: Spouse Current Living Situation Comment: Lives with and daughter Other Information That Helps Us Care for You: No Feels Safe at Home: Yes Assistive Devices: Cane and Contacts Review of Systems Review of Systems: All systems reviewed & are unremarkable except as noted in HPI & below Physical Exam Constitutional: WD/WN, vitals as above Respiratory: normal respiratory effort, lungs clear to auscultation Cardiovascular: RRR, no murmur, no edema Gastrointestinal (Abdomen): Inspection/Auscultation: normal bowel sounds; abdomen not distended Percussion/Palpation: + abdomen tender and abdomen soft; no guarding and abdomen not rigid Psychiatric: A+Ox3, euthymic affect Results & Data Vital Signs (Past 12 Hours) Vital Signs Temp Pulse Resp BP BP Pulse Ox O2 Del Method 07/03/23 10:53 Room Air 07/03/23 10:53 36.6 C 16 126/76 93 Room Air 07/03/23 10:00 61 19 127/81 99 07/03/23 09:32 65 07/03/23 09:28 63 18 144/93 H 99 07/03/23 06:19 36.6 C 90 28 H 157/95 H 100 Room Air PG Care Time/CCT Total # of Minutes Spent Total Time Spent with Patient: Total time spent is greater than 50% in coordination of care (as documented) at patient's floor/unit and/or counseling patient: Coding Level of Care Code 90689 INT INP/OBS CARE 3/75MIN Diagnoses Unintentional weight loss R63.4 Nausea, vomiting and diarrhea R11.2; R19.7 Acute hypokalemia E87.6
[2023-07-03] MEDS: LACTATED RINGER'S 1,000 ML IV SCH (13:42)
[2023-07-03] MEDS: ONDANSETRON INJ 2 MG/ML 2 ML VIAL IV PRN (13:51)
[2023-07-03] MEDS: oxyCODONE/ACETAMINOPHEN 10-325 TAB PO PRN (13:51)
--- NOTE | 2023-07-03 14:02 | XRay Report ---
KUB CLINICAL HISTORY: n/v/d COMPARISON STUDY: CT of the abdomen and pelvis performed earlier today. FINDINGS: Incidental note is made of excreted contrast within the collecting systems, ureters and mik dder from recent contrast-enhanced CT. The bowel gas pattern is normal. Amount of stool is within nor mal limits. No evidence for free air on supine exam. IMPRESSION: Unremarkable KUB. No evidence for a bowel obstruction. ACT 112: Negative or not required by law. Electronically signed by: Gopal Root M.D. 07/03/2023 2:01 PM
[2023-07-03] MEDS ORDERED: DICLOFENAC SOD 1% GEL 100 GM TUBE EXT PRN (15:53)
--- NOTE | 2023-07-03 16:36 | History & Physical Report ---
Date of Service July 03, 2023 Assessment & Plan (1) Nausea, vomiting and diarrhea: Plan: 52 F with chronic, persistent nausea/vomiting, abdominal pain, and diarrhea x 6 months, who presents to the emergency room with profound weakness 2/2 poor oral intake. Admitted to the hospital for management of hypokalemia, evaluation of persistent abdominal pain/nausea. Acute Hypokalemia -K+ 2.9 on admission. Mg 1.8. S/p repletion x 10 mEq K+ in the ED. -Poor/worsening p.o. intake for days. -Lethargy, weakness, but no focal deficits or evidence of ambulatory dysfunction on exam. -No arrhythmias on EKG. * Admit to [facility] (observation) * K+ repletion: 40 mEq KCl. Recheck electrolytes in AM. Nausea/Vomiting/Diarrhea/Abdominal Pain -Chronic, persistent. -Etiology unclear. Based on HPI, physical exam suspect current symptomatology is largely anxiety/stress driven. However, initial trigger is likely gastrointestinal in origin. Therefore, cannot exclude dysmotility, inflammatory causes like severe celiac, IBS, or endocrine. Lower suspicion for functional dyspepsia, given diarrhea. Suspect trigger points may only be partially responsible. -Also considering, though not at this time, endocrinologic/neoplastic causes: Pancreatic insufficiency, neuroendocrine/pancreatic tumor. Will consider if initial workup noncontributory. -Patient is currently tentatively scheduled for upper/lower endoscopy next week. GI consulted, though they declined to scope while inpatient. -Therefore will expand diagnostic workup: * ESR, CRP, IgA transglutaminase, stool panel (O&P, C. difficile, bio fire PCR), fecal calprotectin, TSH, morning cortisol, and fecal fat. * Trigger point injection on 07/03. Reassess clinical improvement. * Pain control regimen: Home Percocet, * IV Zofran 4 mg every 6 hours as needed for nausea * Voltaren gel as needed for trigger point pain Anxiety/Depression -Chronic. Managed on fluoxetine, buspirone, clonazepam * Continue home regimen. Code: Full code Dispo: Med-Surg FEN/GI: LR @maintenance rate. Regular diet DVT Prophylaxis: Lovenox 40 mg q24h PT/OT: No Consults: GI Case Management: No (2) Acute hypokalemia: (3) Depression: Admission and Anticipated Discharge Date Admission Date: July 03, 2023 History of Present Illness Primary Care Provider: Ying Brush DO Garcia is a 52-year-old woman with a past medical history of migraines, anxiety, depression, and a history of as of yet undiagnosed persistent nausea/vomiting and abdominal pain since September 2022, who presented to the emergency room for profound weakness and persistent vomiting stemming from the aforementioned persistent abdominal pain. Patient has previously followed with gastroenterology, psychiatry, and rheumatology in advance for unsuccessful attempt to diagnose her condition. She presented to the emergency room despite being tentatively scheduled for an upper and lower endoscopy next week, because her symptoms had worsened to the point where she is no longer able to tolerate any foods and liquids at this point. She also rates abdominal pain/discomfort at 7/10 in the emergency room. She denies dysuria, urinary frequency, hematuria, dysphagia, hematochezia, feculent emesis, hematemesis, alcohol consumption, cannabis use, or AMS. ROS + weight loss (30+ lbs), and stress. No family history (patient was adopted) On arrival, vital signs were almost entirely within normal limits and stable (EKGsinus bradycardia). Lab workup revealed only significant hypokalemia (K+ 2.9) rest of CMP (lipase, AST/ALT, bilirubin) was normal. CBC, Mg, PT/INR were also all normal. CT abdomen pelvis with contrast was unremarkable, and was negative for bowel obstruction. She received IV potassium repletion, IV Toradol for pain, and IV maintenance LR. When asked to characterize her symptoms on admission, she specifically describes a sore, "hungry-like" midline abdominal pain both alleviated and aggravated by food (pattern is random and neither symptom is tied to a particular food). Abdominal pain is also worsened by lying down, and stress usually on awaking. Her nausea is constant, with episodes of emesis triggered inconsistently by eating or drinking. She reports having 2-3 diarrheal episodes daily x6 months. Allergies Allergy/AdvReac Type Severity Reaction Status Date / Time gabapentin Allergy Severe "EVERY Verified 06/07/23 14:13 SIDE AFFECT YOU CAN GET WITH THIS DRUG" pregabalin Allergy Severe "EVERY Verified 06/07/23 14:13 SIDE AFFECT YOU CAN GET WITH THIS DRUG" Home Medications Medication Instructions Recorded Confirmed Type Wheelchair (Manual) #1 ea 08/30/22 06/07/23 Rx sumatriptan succinate 50 mg tablet 50 mg PO UD PRN Migraine Headache 08/30/22 07/03/23 History (Imitrex) clonazepam 1 mg tablet 1 mg PO DAILY 05/17/23 07/03/23 History oxycodone-acetaminophen 10 mg-325 1 tab PO Q8H PRN Pain 05/17/23 07/03/23 History mg tablet trazodone 150 mg tablet 150 mg PO DAILY 05/17/23 07/03/23 History buspirone 30 mg tablet 15 mg PO BID 06/07/23 07/03/23 History fluoxetine 20 mg capsule (Prozac) 40 mg PO DAILY 06/07/23 07/03/23 History topiramate 100 mg capsule,extended 200 mg PO BID 06/07/23 07/03/23 History release 24 hr ondansetron 8 mg disintegrating 8 mg PO Q12H #60 tabs 06/11/23 07/03/23 Rx tablet peg 3350-electrolytes 236 240 ml PO Q10M #4,000 mL 06/27/23 07/03/23 Rx gram-22.74 gram-6.74 gram-5.86 gram solution (GaviLyte-G) Past Med/Surg History Medical History Tardive dyskinesia Raynaud disease Osteoarthritis Kidney stones History of stomach ulcers Chronic steroid use 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 Attention deficit disorder (ADD) not currently taking adderall Anxiety Depression Stroke 11/2017--unknown cause, no deficits--no neurologist Migraine History of COVID-19 03/2022--mild symptoms, no symptoms now Chronic prescription opiate use Chronic pain cervical spine pain Ankle fracture, right Surgical History History of dilatation and curettage History of esophagogastroduodenoscopy (EGD) History of tooth extraction Family History Other Family history not known due to adoption Social History Smoking Status: Never smoker Second Hand Exposure: No; Do You Dip or Chew Tobacco: No; Hx Alcohol Use: No Hx Substance Use: Yes Substance Use Type Other:: medicinal mrijuana Preferred Language: Eritrean Communication Ability: Effective Ems Educator Required: No Beliefs That Will Affect Care: None Current Living Situation: Spouse Current Living Situation Comment: Lives with and daughter Other Information That Helps Us Care for You: No Feels Safe at Home: Yes Assistive Devices: Cane and Contacts Review of Systems Review of Systems: All systems reviewed & are unremarkable except as noted in HPI & below Physical Exam Physical Exam: General: No acute distress HEENT: PERRLA. Normal conjunctiva, anicteric sclera. Oropharynx normal. Respiratory: Normal respiratory effort, CTABL. Cardiovascular: RRR without murmurs, gallops, or rubs. No pedal edema. GI: Soft abdomen with normal bowel sounds heard on auscultation. Moderately periumbilical tenderness with palpation. Also palpated small nodular mass immediately proximal to umbilicus. Neuro: Alert and oriented x3. Results & Data Results & Data Vital Signs (Past 12 Hours) Vital Signs Temp Pulse Resp BP BP Pulse Ox O2 Del Method 07/03/23 15:15 36.6 C 16 125/75 96 Room Air 07/03/23 10:53 Room Air 07/03/23 10:53 36.6 C 16 126/76 93 Room Air 07/03/23 10:00 61 19 127/81 99 07/03/23 09:32 65 07/03/23 09:28 63 18 144/93 H 99 07/03/23 06:19 36.6 C 90 28 H 157/95 H 100 Room Air Supervising Physician Co-Signing Physician Notes I personally examined the patient and verified all banks points of history and exam, discussed case, and agree with decision making with Dr Bassett Intractable GI symptoms and about 30 pounds of weight loss over the last year. Also does admit to significant anxiety, but notes that her GI symptoms, while worsened by the anxiety, do not seem to be entirely caused by it. Chronic nausea and abdominal pain with vomiting mostly when if she tries to eat. Diarrhea3 times a day or so, but also with nocturnal fecal incontinence at times. No blood loss noted. Vitals noted, in general she is awake and alert very fatigued, gaunt and malnourished appearing, no acute distress. HEENT normocephalic atraumatic mucous membranes Slightly dry. Abdomen is soft and scaphoid, she has a questionable trigger point or 2 in her left upper abdomen, although they are not very tender, and a more notable trigger point midline about 3 or so centimeters proximal to her umbilicus that is fairly tender. The rest of her abdomen shows tenderness predominantly upper abdomen without guarding rebound or rigidity. She appears to be extremely thin with some degree of muscle wasting. Mental status is intact. Intractable nausea vomiting diarrhea abdominal pain as well as what appears to be fairly severe protein calorie malnutritionetiology unclear. Discussed with patient it is likely to be multifactorial. Will inject trigger point and utilize Voltaren gel for it. Broad workup for anything from malabsorptive to inflammatory to motility issues. Supportive care. As it relates to her malnutrition, dietitian consult nutritional support. labs to assess extent of malnutrition in addition for workup for abdominal symptoms. rehydrate DVT proph ambulation for now, pharmacologic if she proves to be more weak/nonambulatory than expected. Resident Activity Tracking Resident Involvement: Resident Care Provided Care Provided: Adult [facility] Medicine (3) Depression Active/Remission status: currently active Depression Type: major depressive disorder Major depression episode severity: severe Major depression recurrence: unspecified whether recurrent Psychotic features: without psychotic features Qualified Code(s): F32.2 - Major depressive disorder, single episode, severe without psychotic features
[2023-07-03] MEDS: POTASSIUM CHLORIDE / WTR 10 MEQ/100 ML PLCT IV SCH (17:53)
[2023-07-03 18:04] LABS: C Reactive Protein < 0.50 mg/dl (0-0.5); Phosphorus 2.2 mg/dl (2.5-4.9)
--- OUTSIDE RECORDS SUMMARY | 2023-07-03 18:08 | External Medical Summary | Summary of Care ---
Author Name Unknown Organization [facility] Address [address] [place] [address] Phone [phone] Care Team Providers Care Hygiene Coordinator Name Role Phone Unavailable Primary Care Provider Unavailabl e Reason for Visit * Reason Comments Completion Of Treatment Encounter Details Date Type Department Care Team (Late st Contact Info) Description 06/17/2023 Documentation [facility], [place] [address] [place], [place] [id number] Edilma Naranjo, [facility] [address], [place] [id number] Allergies Active Allergy Reactions Criticality Noted Date Comments Vicodin 05/19/2002 itching documented as of this encounter (statuses as of 06/17/2023) Medications Medication Sig Dispensed Refills Start Date End Date Status ORTHO TRI-CYCLEN LO 0.025 MG PO TABSIndications:Sathish l counseling for prescription of oral contraceptives 1 TAB by mouth daily 1 1 12/23/2008 Active traZODone HCl 100 MG Oral Tablet (Desyrel) Take 2 Tablets by mouth at bedtime. 60 Tablet 5 04/11/2023 Active busPIRone HCl 30 MG Oral Tablet Take 1 Tablet by mouth in the morning and 1 Tablet before bedtime. Use as directed.. 60 Tablet 5 04/11/2023 Active clonazePAM 1 MG Oral Tablet (KlonoPIN) Take 1 Tablet by mouth every night at bedtime. May also take 0.5 Tablets daily as needed for Anxiety. 45 Tablet 1 04/11/2023 Active Venlafaxine HCl ER 150 MG Oral Capsule Extended Release 24 Hour (Effexor XR) Take 1 Capsule by mouth in the morning. In the morning.. 30 Capsule 2 05/13/2023 Active ARIPiprazole 5 MG Oral Tablet (Abilify) Take 0.5 Tablets by mouth in the morning. 15 Tablet 5 05/13/2023 Active documented as of this encounter (statuses as of 06/17/2023) Active Problems Problem Noted Date Diagnosed Date Food insecurity 04/29/2023 Overview: Per [facility] Protocol Severe episode of recurrent major depressive disorder, without psychotic features 04/08/2023 CHRISTAL (generalized anxiety disorder) 04/08/2023 ADVANCE DIRECTIVE INFORMATION 11/27/2005 Overview: Pt declines booklet. DJD neck 05/19/2002 documented as of this encounter (statuses as of 06/17/2023) Social History Tobacco Use Types Packs/Day Years Used Date Smoking Tobacco: Never Alcohol Use Standard Drinks/Week Comments Yes 0 (1 standard drink = 0.6 oz pur e alcohol) very rare PHQ-2 Answer Date Recorded PHQ Adult Total Score 21 05/16/2023 Hunger Vital Sign Answer Date Recorded Within the past 12 months, y ou worried that your food would run out before you got the money to buy more. Often true Within the past 12 months, t he food you bought just didn't last and you didn't have money to get more. Patient declined Sex and Gender Information Value Date Recorded Sex Assigned at Female 04/08/2023 2:01 PM EST Gender Identity Female 04/08/2023 2:01 PM EST Sexual Orientation Straight 04/08/2023 2: 01 PM EST documented as of this encounter Progress Notes * Edilma Naranjo, HEALTH CARE COACH - 06/17/2023 3:12 PM EST THERAPY/PSYCHOLOGY DISCHARGE SUMMARY 1. Summary of Services provided: Individual Therapy 2. Outcomes and referrals: Patient elected to postpone or discontinue treatment at this time 3. Relevant psychosocial status: problems with primary support group, occupational problems & economic problems, and other psychosocial and environmental problems: medical, coping, anxiety, depression Plan of care at time of discharge including referrals: Use crisis plan as needed Can consult us in the future as clinically indicated Patient and/or family has access to this document through MyChart Edilma Naranjo PsyD, HEALTH CARE COACH, N[facility], ACS, [facility] Division of Psychiatry & Behavioral Medicine [facility] [phone] documented in this encounter Plan of Treatment Upcoming Encounters Date Type Department Care Team (Late st Contact Info) Description 08/16/2023 1:30 PM EDT Telemedicine Psychiatry, [place] [address] [place] [address] Nahomy Lynn CRNP [address] [place] [address] Health Maintenance Due Date Last Done Comments Lipid Panel 1968 HIV Screening 11/23/1983 Hepatitis C Screening 1986 DTaP,Tdap,and Td Vaccines (1 - Tdap) 11/23/1987 Hepatitis B (1 of 3 - 19+ 3-dose series) 11/23/1987 HPV/Co-Test 1998 Mammogram 2008 Cervical Cancer Screening 10/27/2010 Pap Smear 10/27/2010 10/28/2007, 09/2006, 05/28/2006, Additional history exists Cologuard 2013 Colonoscopy 2013 Colorectal Cancer Screening 2013 Fecal Occult Blood Test 2013 Sigmoidoscopy 2013 Zoster Vaccines (1 of 2) 2018 COVID-19 Vaccine (2022-24 season) 2022 Influenza Vaccine (FLU shot) (#1) 2022 Depression, Most Recent Score >= 10 (will fire each visit until score < 10) 05/17/2023 05/16/2023 GARDASIL-HPV IMMUNIZATION SERIES Aged Out No longer eligible based on patient's age to complete this topic MENINGOCOCCAL (MENACTRA/MENVEO) Aged Out No longer eligible based on patient's age to complete this topic Pneumococcal Vaccine: Pediatrics (0 to 5 Years) and At-Risk Patients (6 to 64 Years) Aged Out No longer eligible based on patient's age to complete this topic documented as of this encounter Medical Devices Not on filedocumented as of this encounter
--- OUTSIDE RECORDS SUMMARY | 2023-07-03 18:08 | External Medical Summary | Continuity of Care Document ---
Author Name Unknown Organization [address] Address [address] [place] [phone] Care Team Providers Care Tank Wagon Operator Name Role Phone Ying Brush Primary Care Physician [phone] Encounter [facility] [id number] Date(s): 06/24/23 - 06/24/[address] [place] [address], [address] [place] [address] [phone] Encounter Diagnosis Recurrent major depression (disorder)(Discharge Diagnosis) - 06/24/23 Insomnia due to other mental disorder(Discharge Diagnosis) - 06/24/23 Body mass index [BMI] 19.9 or less, adult(Discharge Diagnosis) - 06/24/23 Weight loss observed on examination(Discharge Diagnosis) - 06/24/23 Discharge Disposition: Home or Self Care Attending Physician: RORY Rios Katy Marie Referring Physician: RORY Rios Katy Marie Allergies, Adverse Reactions, Alerts Substance Reaction Severity Status gabapentin dizziness loss of vision Active traZODone nausea Active Neurontin dizziness loss of vision Active Cymbalta dizziness loss of vision Active Lyrica dizziness loss of vision Active Assessment and Plan Extracted from: Title:Office Visit Note Author:RORY Rios Kat y Marie Date:06/24/23 1.Recurrent major depressi on (disorder) Problem isChronic - not controlled Goal:maintenance Plan:considering TMS. We also discussed seeking ECT for treatment resistant depression, or even low-dose ketamine therapyto see if she would be a candidate for any of these. She has not been responding to hermedications.. Pt would benefit from psychiatry management. We also discussed inpatient therapy patient would prefer to avoid this at this time. Continue with therapist. Set small goals to be active or go outside. Also discussed creating a journal. 3.Weight loss observed on examination Problem isChronic - not controlled Goal:resolution Data:_ Plan:continue to work on PO intake, we discussed that this is a concerning finding. Currently following with GI. Discussed return precautions and ER precautions. Patient verbalizes understanding and agrees with plan Medications busPIRone 15 mg oral tablet Start: 05/24/23 13:40:00 EST, 1 tab, PO, bid, Disp# 90 tab, Refills: 0, Note to Pharmacy: Pt will call to fill, Pharmacy: [facility]/pharmacy #[id number] Start Date: 05/24/23 Status: Ordered clonazePAM 1 mg oral tablet Start: 05/17/23 15:51:00 EST, 1 tab, PO, qhs, Disp# 30 tab, Refills: 0, Pharmacy: [facility]/pharmacy #[id number] Start Date: 05/17/23 Status: Ordered ondansetron 8 mg oral tablet, disintegrating Start: 05/31/23 12:43:00 EST, 1 tab, PO, tid, Disp# 30 tab, Refills: 0, PRN: as needed for nausea/vomiting, Pharmacy: [facility]/pharmacy #[id number] Start Date: 05/31/23 Status: Ordered Percocet 10 mg-325 mg oral tablet Start: 06/20/23 15:42:00 EST, 1 tab, PO, q4h, Disp# 60 tab, Refills: 0, Note to Pharmacy: Pt has d/c dilauded, PRN: as needed for pain, Pharmacy: [facility]/pharmacy #[id number] Start Date: 06/20/23 Status: Ordered Phenergan 25 mg oral tablet Start: 02/04/23 16:02:00 EDT, 1 tab, PO, q6h, Disp# 30 tab, Refills: 0, PRN: as needed for nausea/vomiting, Pharmacy: [facility]/pharmacy #[id number] Start Date: 02/04/23 Status: Ordered PROzac 20 mg oral capsule Start: 06/24/23 14:55:00 EST, 2 cap, PO, Daily, Disp# 180 cap, Refills: 3, Pharmacy: [facility]/pharmacy #[id number] Start Date: 06/24/23 Stop Date: 06/18/24 Status: Ordered SUMAtriptan 100 mg oral tablet Start: 05/07/23 9:43:00 EST, See Instructions, Disp# 9 tab, Refills: 5, TAKE 1 TABLET BY MOUTH ONCEAS NEEDED FOR MIGRAINE MAY REPEAT ONCE IN 2 HRS, Pharmacy: [id number] Start Date: 05/07/23 Status: Ordered topiramate 50 mg oral tablet Start: 06/10/23 9:10:00 EST, 1 tab, PO, bid, Disp# 180 tab, Refills: 3, Pharmacy: [facility] Start Date: 06/10/23 Status: Ordered Mental Status 06/24/23 Barriers to Learning one year None evide nt Mandatory Health Literacy Documentation Yes Health Literacy Communication Barriers N ever Primary Language Faroese Problem List Condition Confirmation Course Effective Dates Status H ealth Status Informant Hair loss Confirmed Active ADD (attention deficit disorder) Confirmed Active Cervical arthritis Confirmed Active Degeneration of intervertebral disc Confirmed Active Eye disorder Confirmed Active Dental disorder Confirmed Active Fatigue Confirmed Active Generalized headaches Confirmed Active History of TIAs Confirmed Active Left ankle injury Confirmed Active Right ankle injury Confirmed Active Loss of balance Confirmed Active Major depressive episode Confirmed Active Memory change Confirmed Active Migraine headache Confirmed Active Polyarthralgia Confirmed Active Polyarthritis Confirmed Active Raynaud's disease /phenomenon Confirmed Active Recurrent major depression (disorder) Confirmed Active Spinal stenosis, cervical region Confirmed Active Tardive dyskinesia Confirmed Active Weight loss observed on examination Confirmed Active Diagnosis Diagnosis Type Effective Dates Health Status Clinical Service Informant Recurrent major depression (disorder) Discharge Diagnosis 06/24/23 Body mass index [BMI] 19.9 or less, adult Discharge Diagnosis 06/24/23 Non-Specified Insomnia due to other mental disorder Discharge Diagnosis 06/24/23 Weight loss observed on examination Discharge Diagnosis 06/24/23 Procedures Procedure Date Related Diagnosis Body Site Status Open reduction 1 08/31/22 Complete d Mammogram 2 09/04/17 Completed Procedure 3 1993 Completed Surgery Completed 1R bimalleolar ankle fracture 2wnl 3Patient states had D & E post miscarriage Vital Signs Most recent to oldest [Reference Range]: 1 Height 165.0 cm (06/24/23 1:55 PM) Patient Weight 45.4 kg (06/24/23 1:55 PM) Body Mass Index 16.68 kg/m2 (06/24/23 1:55 PM) Temperature [36.5-37.9 DegC] 37.2 DegC (06/24/23 1:55 PM) Blood Pressure 108/62mmHg (06/24/23 1:55 PM) Cuff Pulse Pressure 46 mmHg (06/24/23 1:55 PM) Social History Social History Type Response Smoking Status Never smoked cigaret kaycee Sex Female FCM Outpt Note * RORY Rios, Minerva Alvarado: PERFORM Event Display: FCM Outpt Note Authored Date: [id number] Chief Complaint F/U anxiety. Declines flu inj. History of Present Illness Alyson reports today that she has been experiencing significantly decreased appetiteshe has lost over 4 kg since her last visit less than 1 month ago. She notes that her entire family had the flu. Her symptoms lasted 10 days with extreme exhaustion. Her reports that he felt as though she slept for 10 days straight. She did stop her trazodone about a week ago wondering if it was adding to her nausea. She has been taking 40 mg of her fluoxetine. Her and her both report that she has been having panic attacksfor which the clonazepam was nothelpful. She has been seeing a therapist which I encouraged she continue to do. No SI\\HI at this time. She is considering TMS therapy She relates frustrationwith her symptomsand being unable to pinpoint a specific trigger for her. Review of Systems A total of 10 systems were reviewed. Pertinent positive and negatives addressed in HPI, all other findings are negative. Physical Exam Vitals & Measurements T:37.2C BP:108/62 SpO2:99% HT:165.0cm WT:45.400kg(Dosing) WT:45.4kg BMI:16.68 PHQ2 Data(Data Documented on:06/24/2023 13:52) Emotional health assessment POSITIVE PHQ-9 Data(Data Documented on:06/24/2023 14:02) PHQ-9 Severity Score:27 Thoughts that you would be better off or of hurting yourself in some way?Nearly every day Depression Risk:Elevated PHQ-A Data(Data Documented on:06/24/2023 13:59) Depression Risk:Elevated Feeling down, depressed, irritable or hopeless?Nearly every day Little interest or pleasure in doing things?Nearly every day Trouble falling or staying asleep, or sleeping too much?Nearly every day Poor appetite, weight loss or overeating?Nearly every day Feeling tired or having little energy?Nearly every day Feeling bad about yourself - or feeling that you are a failure...?Nearly every day Trouble concentrating on things like school work, reading or watching TV?Nearly every day Moving or speaking slowly / Being fidgety or restless?Nearly every day Thoughts that you would be better off or of hurting yourself in some way?Nearly every day In the past year have you felt depressed or sad most days, even if you felt okay sometimes?Yes Difficulty with everyday activities?Extremely Difficult PHQ-9 Modified for Adolescents Severity Score:27 Constitutional: Alert and oriented, No acute distress, ill-appearing, thin,tearful/anxious mood and affect Respiratory: equal chest rise and fall with breathing, no pursed lip breathing Cardiovascular: Heart sounds regular rate and rhythm, without gallop or murmur, no edema HEENT: Normocephalic, atraumatic, conjunctiva are clear, sclera non-icteric Skin: Warm, pale, dry, intact Assessment/Plan 1.Recurrent major depression (disorder) Problem isChronic - not controlled Goal:maintenance Plan:considering TMS. We also discussed seeking ECT for treatment resistant depression, or even low-dose ketamine therapyto see if she would be a candidate for any of these. She has not been responding to hermedications.. Pt would benefit from psychiatry management. We also discussed inpatient therapy patient would prefer to avoid this at this time. Continue with therapist. Set small goals to be active or go outside. Also discussed creating a journal. 3.Weight loss observed on examination Problem isChronic - not controlled Goal:resolution Data:_ Plan:continue to work on PO intake, we discussed that this is a concerning finding. Currently following with GI. Discussed return precautions and ER precautions. Patient verbalizes understanding and agrees with plan Problem List/Past Medical History Ongoing ADD (attention deficit disorder) Cervical arthritis Degeneration of intervertebral disc Dental disorder Eye disorder Fatigue Generalized headaches Hair loss History of TIAs Left ankle injury Loss of balance Major depressive episode Memory change Migraine headache Polyarthralgia Polyarthritis Raynaud's disease /phenomenon Recurrent major depression (disorder) Right ankle injury Spinal stenosis, cervical region Tardive dyskinesia Weight loss observed on examination Historical Acne Weight disorder Procedure/Surgical History Open reduction| Service Date: 08/31/2022Mammogram| Service Date: 09/04/2017Procedure| Service Date: 1993Surgery Medications acetaminophen-oxycodone(Percocet 10 mg-325 mg oral tablet), 1 tab, PO, q4h, PRN busPIRone(busPIRone 15 mg oral tablet), 15 mg= 1 tab, PO, bid clonazePAM(clonazePAM 1 mg oral tablet), 1 mg= 1 tab, PO, qhs FLUoxetine(PROzac 20 mg oral capsule), 40 mg= 2 cap, PO, Daily, 3 refills ondansetron(ondansetron 8 mg oral tablet, disintegrating), 8 mg= 1 tab, PO, tid, PRN promethazine(Phenergan 25 mg oral tablet), 25 mg= 1 tab, PO, q6h, PRN SUMAtriptan(SUMAtriptan 100 mg oral tablet), See Instructions topiramate(topiramate 50 mg oral tablet), 1 tab, PO, bid Allergies Cymbaltadizziness, loss of vision Lyricadizziness, loss of vision Neurontindizziness, loss of vision gabapentindizziness, loss of vision traZODonenausea Social History Smoking Status Never smoked cigarettes Alcohol - Denies Alcohol Use - Comments: USAUDIT-C score = 0 Employment/School Status:Employed Description:project manager finance at [employer] Exercise - Regular exercise Nutrition/Health Type of diet:Regular Sexual Sexually active:Yes Current partners:1 Substance Abuse - Denies Substance Abuse Tobacco - Denies Tobacco Use Use:Never smoker Family History Patient was adopted Family history is negative Recommendations Health Maintenance Pending(in the next year) OverDue Breast Cancer Screening due09/05/18and every day Adult Influenza Vaccine due10/19/22and every 1year Due Adult COVID-19 Vaccination due06/24/23Unknown Frequency Adult Social Determinants of Health Screening due06/24/23Unknown Frequency Adult Tdap/Td Vaccine due06/24/23Unknown Frequency Cervical Cancer Screening due06/24/23Unknown Frequency Colorectal Cancer Screening due06/24/23Unknown Frequency Hepatitis C Screening due06/24/23One-time only Lipid Screening due06/24/23Unknown Frequency Shingles Vaccine due06/24/23One-time only Satisfied(in the past 1 year) Satisfied Body Mass Index on06/24/23.Satisfied by FLAKO Dennis Lori Depression Follow Up Plan on06/24/23.Satisfied by FLAKO Dennis Lori Electronic Signature on File CC: Ying Brush DO [address] [place] [address] Electronically Reviewed/Signed by: RORY Acevedo Author Signature Dt/Tm:06/24/2023 04:35 PM Department of Family [facility] Patient Care team information Care Team Personnel Name: TIAN Maya Kimberly A Position: Physician Asst Exmpt - Family Med Member Role: Lifetime Relationship Address: Address: [facility] [address] Name: DO Brush Kristen M Position: Physician - Family Med Member Role: Primary Care Provider Address: Address: [address] [place] [address] Name: RORY Doshi Shari A Position: Nurse Pract - Family Med Member Role: Lifetime Relationship Address: Address: [address] [place] [address] Care Team Related Persons Name: YUSUF GARCIA Address: home [address] [place], [id number] Name: YUSUF GARCIA Address: home [address] [place] [phone] Name: SHERMAN GARCIA Address: home No Address Provided Name: KAYLEE REYEZ Address: home No Address Provided"
--- OUTSIDE RECORDS SUMMARY | 2023-07-03 18:08 | External Medical Summary | Continuity of Care Document ---
Author Name Unknown Organization [address] Address [address] [place] [phone] Care Team Providers Care Sound Installation Worker Name Role Phone Ying Brush Primary Care Physician [phone] Encounter [facility] [id number] Date(s): 06/14/23 - 06/14/[address] [place] [id number] [facility], [address] [place] [address] [phone] Discharge Disposition: Home or Self Care Attending Physician: RORY Rios Katy Marie Referring Physician: DO Brush Kristen M Allergies, Adverse Reactions, Alerts Substance Reaction Severity Status gabapentin dizziness loss of vision Active Lyrica dizziness loss of vision Active Neurontin dizziness loss of vision Active Cymbalta dizziness loss of vision Active Medications busPIRone 15 mg oral tablet Start: 05/24/23 13:40:00 EST, 1 tab, PO, bid, Disp# 90 tab, Refills: 0, Note to Pharmacy: Pt will call to fill, Pharmacy: [facility]/pharmacy #[id number] Start Date: 05/24/23 Status: Ordered clonazePAM 1 mg oral tablet Start: 05/17/23 15:51:00 EST, 1 tab, PO, qhs, Disp# 30 tab, Refills: 0, Pharmacy: [facility]/pharmacy #[id number] Start Date: 05/17/23 Status: Ordered FLUoxetine 10 mg oral capsule Start: 05/24/23 13:36:00 EST, 1 cap, PO, Daily, Disp# 90 cap, Refills: 3, Take with the 20mg tabletto total 30mg PO Daily, Pharmacy: [facility]/pharmacy #[id number] Start Date: 05/24/23 Status: Ordered ondansetron 8 mg oral tablet, disintegrating Start: 05/31/23 12:43:00 EST, 1 tab, PO, tid, Disp# 30 tab, Refills: 0, PRN: as needed for nausea/vomiting, [id number] Start Date: 05/31/23 Status: Ordered Percocet 10 mg-325 mg oral tablet Start: 06/03/23 17:22:00 EST, 1 tab, PO, q4h, Disp# 60 tab, Refills: 0, Note to Pharmacy: Pt has d/c dilauded, PRN: as needed for pain, [id number] Start Date: 06/03/23 Status: Ordered Phenergan 25 mg oral tablet Start: 02/04/23 16:02:00 EDT, 1 tab, PO, q6h, Disp# 30 tab, Refills: 0, PRN: as needed for nausea/vomiting, [id number] Start Date: 02/04/23 Status: Ordered PROzac 20 mg oral capsule Start: 05/20/23 7:56:00 EST, 1 cap, PO, Daily, Disp# 90 cap, Refills: 0, [id number] Start Date: 05/20/23 Status: Ordered SUMAtriptan 100 mg oral tablet Start: 05/07/23 9:43:00 EST, See Instructions, Disp# 9 tab, Refills: 5, TAKE 1 TABLET BY MOUTH ONCEAS NEEDED FOR MIGRAINE MAY REPEAT ONCE IN 2 HRS, Pharmacy: [id number] Start Date: 05/07/23 Status: Ordered topiramate 50 mg oral tablet Start: 06/10/23 9:10:00 EST, 1 tab, PO, bid, Disp# 180 tab, Refills: 3, Pharmacy: [facility] Start Date: 06/10/23 Status: Ordered traZODone 50 mg oral tablet Start: 04/08/23 15:46:00 EST, 2 tab, PO, qhs, Disp# 60 tab, Refills: 11, Note to Pharmacy: Please cancel script for the trazodone 50mg 1 qhs;, Pharmacy: [facility]/pharmacy #[id number] Start Date: 04/08/23 Status: Ordered Problem List Condition Confirmation Course Effective Dates [...] region Confirmed Active Tardive dyskinesia Confirmed Active Procedures Procedure Date Related Diagnosis Body Site Status Open reduction 1 08/31/22 Complete d Mammogram 2 09/04/17 Completed Procedure 3 1993 Completed Surgery Completed 1R bimalleolar ankle fracture 2wnl 3Patient states had D & E post miscarriage Social History Social History Type Response Smoking Status Never smoked cigaret kaycee Sex Female Patient Care team information Care Team Personnel Name: TIAN Maya Kimberly A Position: Physician Asst Exmpt - Family Med Member Role: Lifetime Relationship Address: Address: [address] [place] [address] Name: DO Brush Kristen M Position: Physician - Family Med Member Role: Primary Care Provider Address: Address: [address] [place] [address] Name: RORY Doshi Shari A Position: Nurse Pract - Family Med Member Role: Lifetime Relationship Address: Address: [address] [place] [address] Care Team Related Persons Name: YUSUF GARCIA Address: [address] [place] [phone] Name: YUSUF GARCIA Address: home [address] [place], [id number] Name: SHERMAN GARCIA Address: home No Address Provided Name: KAYLEE REYEZ Address: home No Address Provided
[2023-07-03 18:19] LABS: Thyroid Stimulating Hormone 2.078 uIu/ml (0.300-4.500)
[2023-07-03] MEDS ORDERED: PROMETHAZINE HCL INJ 25 MG/ML 1 ML VIAL IM PRN (18:59)
--- NOTE | 2023-07-03 18:59 | Billing Data ---
Date of Service July 03, 2023 Coding Level of Care Code 60236 INT INP/OBS CARE
[2023-07-03] MEDS: busPIRone 15 MG TAB PO SCH (19:33)
[2023-07-03] MEDS: DICLOFENAC SOD 1% GEL 100 GM TUBE EXT SCH (21:29)
--- NOTE | 2023-07-04 06:10 | Electrocardiogram Report ---
Test Reason : Blood Pressure : / mmHG Vent. Rate : 059 BPM Atrial Rate : 059 BPM P-R Int : 086 ms QRS Dur : 098 ms QT Int : 460 ms P-R-T Axes : 061 074 048 degrees QTc Int : 455 ms Sinus bradycardia with short WI Nonspecific T wave abnormality Abnormal ECG When compared with ECG of 27-OCT-2022 10:18, No significant change was found Confirmed by Dk Vargas ([id number]) on 07/04/2023 6:10:14 AM Referred By: REFERRED SELF Confirmed By:Dk Vargas
--- NOTE | 2023-07-04 07:39 | Hospitalist Progress Note ---
Date of Service July 04, 2023 Assessment & Plan (1) Nausea, vomiting and diarrhea: Plan: 52 F with chronic, persistent nausea/vomiting, abdominal pain, and diarrhea x 6 months, who presents to the emergency room with profound weakness 2/2 poor oral intake. Admitted to the hospital for management of hypokalemia, evaluation of persistent abdominal pain/nausea. Nausea/Vomiting/Diarrhea/Abdominal Pain -Chronic, persistent; unknown etiology -Etiology unclear. Based on HPI, physical exam suspect current symptomatology is largely anxiety/stress driven. However, initial trigger is likely gastrointestinal in origin. Therefore, cannot exclude dysmotility, inflammatory causes like severe celiac, IBS, or endocrine. Lower suspicion for functional dyspepsia given diarrhea. Suspect trigger points may be partially responsible. -Also considering, though not at this time, endocrinologic/neoplastic causes: Pancreatic insufficiency, neuroendocrine/pancreatic tumor. Will consider if initial workup noncontributory. -Patient is currently tentatively scheduled for upper/lower endoscopy next week. GI consulted, though they are deferring scopes to outpatient. -Therefore, will expand diagnostic workup: * ESR, CRP, TSH, and morning cortisol neg * IgA transglutaminase, stool panel (O&P, C. difficile, bio fire PCR), fecal calprotectin, fecal fat pending * Trigger point injection planned for tomorrow. Reassess clinical improvement. * Pain control regimen: Home Percocet * IV Zofran 4 mg every 6 hours as needed for nausea * Voltaren gel as needed for trigger point pain Anxiety/Depression -Chronic; continue home regimen of fluoxetine, buspirone, clonazepam Acute hypokalemia- resolved -K 2.9 on admission. Mg 1.8. S/p repletion x 10 mEq K in the ED and 40 mEq upon admission -Lethargy, weakness, but no focal deficits or evidence of ambulatory dysfunction on exam. -No arrhythmias on EKG -Continue to monitor Code: Full code Dispo: Med-Surg FEN/GI: LR @maintenance rate. Regular diet as tolerated DVT Prophylaxis: Lovenox 40 mg q24h Consults: GI (2) Acute hypokalemia: (3) Depression: Admission and Anticipated Discharge Date Admission Date: July 03, 2023 Supervising Physician Co-Signing Physician Notes I personally examined the patient and verified all banks points of history and exam, discussed case, and agree with decision making with Dr Lozano feeling a little bit better. Has not had any diarrhea. Was able to eat some, had some nausea, but antiemetics were able to quell this. Did not have any vomiting. Abdominal pain was the worst when she first woke up this morning. Vitals noted, in general she is awake and alert pleasant no distress. Less fatigued and gaunt than yesterdayat least from hydrationbreathing unlabored no accessory muscle use good effort. Skin shows no rashes no pallor or icterus. Neuro without focal deficits. Intractable nausea vomiting diarrhea abdominal pain as well as what appears to be fairly severe protein calorie malnutritionetiology unclear. Discussed with patient it is likely to be multifactorial. Probably at least the malnutrition itself causing ongoing symptoms, as well as possibly contribution from trigger point. Will inject trigger point and utilize Voltaren gel for it. Continue stepwise broad workup for anything from malabsorptive to inflammatory to motility issues. Supportive care. As it relates to her malnutrition, appreciate dietitian consult nutritional support. labs to assess extent of malnutrition were reassurring. continue to hydrate DVT proph ambulation for now, pharmacologic if she proves to be more weak/nonambulatory than expected. Subjective 52 F with chronic, persistent nausea/vomiting, abdominal pain, and diarrhea x 6 months, who presents to the emergency room with profound weakness 2/2 poor oral intake. Admitted to the hospital for management of hypokalemia, evaluation of persistent abdominal pain/nausea. Pt doing about the same this morning; although, pt does note that her anxiety seems worse this morning. Her stomach symptoms are ok- she did have some food last night which she said felt good. She also feels hungry this morning and is going to try to eat breakfast. Review of Systems Review of Systems: As per HPI Physical Exam Physical Exam: Constitutional: ill appearing, no acute distress HEENT: normocephalic, no conjunctival injection CV: clinically well perfused, no LE edema Respiratory: n increased work of breathing GI: soft, nondistended, nontender; palpable trigger points in the upper left quadrant and superior to umbilicus MSK: no gross deformities noted Skin: warm, dry, no rashes Neuro: alert, oriented, no FND noted Psych: mood and affect congruent Results & Data Results & Data Vital Signs (Past 12 Hours) Vital Signs Temp Pulse Resp BP Pulse Ox O2 Del Method 07/03/23 21:27 36.6 C 60 16 108/68 98 Room Air Resident Activity Tracking Resident Involvement: Resident Care Provided Care Provided: Adult Hospital Medicine (3) Depression Active/Remission status: currently active Depression Type: major depressive disorder Major depression episode severity: severe Major depression recurrence: unspecified whether recurrent Psychotic features: without psychotic features Qualified Code(s): F32.2 - Major depressive disorder, single episode, severe without psychotic features
[2023-07-04] MEDS: FLUoxetine HCL 20 MG CAP PO SCH (08:00)
[2023-07-04] MEDS: traZODone HCL 50 MG TAB PO SCH (08:00)
[2023-07-04] MEDS: clonazePAM 1 MG TAB PO SCH (08:03)
[2023-07-04 08:06] LABS: Basophils # (auto) 0.04 K/uL (0.00-0.20); Basophils % (auto) 0.8 %; Eosinophils # (auto) 0.15 K/uL (0.00-0.50); Eosinophils % (auto) 2.9 %; Hematocrit (blood only) 37.6 % (37.0-47.0); Hemoglobin 12.9 g/dl (12.0-16.0); Immature Granulocytes # (auto) 0.01 K/uL (0.01-0.20); Immature Granulocytes % (auto) 0.2 %; Lymphocytes # (auto) 2.02 K/uL (1.20-3.40); Lymphocytes % (auto) 38.7 %; Mean Corpuscular Hemoglobin 31.3 pg (25.0-34.0); Mean Corpuscular Hgb Conc 34.3 g/dL (32.0-36.0); Mean Corpuscular Volume 91.3 fL (80.0-100.0); Mean Platelet Volume 9.6 fL (9.4-12.4); Monocytes # (auto) 0.43 K/uL (0.11-0.59); Monocytes % (auto) 8.2 %; Neutrophils # (auto) 2.57 K/uL (1.40-6.50); Neutrophils % (auto) 49.2 %; Platelet Count 220 K/uL (130-400); RDW Coefficient of Variation 13.9 % (11.5-14.5); RDW Standard Deviation 46.5 fL (36.4-46.3); Red Blood Count 4.12 M/uL (4.20-5.40); White Blood Count 5.22 K/ul (4.8-10.8)
[2023-07-04 08:25] LABS: Magnesium 1.6 mg/dl (1.7-2.4); Phosphorus 2.3 mg/dl (2.5-4.9)
[2023-07-04 08:34] LABS: BUN Creatinine Ratio 8.5 (10-20); Calcium 8.5 mg/dl (8.6-10.3); Creatinine Clr Calc Pharmacy 54.2 ml/min; Est GFR (Non-African American) 81.1 ml/min; Potassium 3.8 mmol/L (3.5-5.1)
[2023-07-04 08:45] LABS: Ferritin 74.2 ng/ml (8-388)
[2023-07-04] MEDS ORDERED: LIDOCAINE 2% LOCAL 50 ML VIAL INFIL PRN (16:57)
--- NOTE | 2023-07-04 16:57 | Billing Data ---
Date of Service July 04, 2023 Coding Level of Care Code 93562 SUB INP/OBS CARE MIN
--- NOTE | 2023-07-04 17:03 | Billing Data ---
Date of Service July 04, 2023 Coding Level of Care Code 48835 SUB INP/OBS CARE MIN
[2023-07-04 20:15] LABS: Adenovirus F 40/41 PCR Not Detected (NotDetected); Astrovirus PCR Not Detected (NotDetected); Campylobacter PCR Not Detected (NotDetected); Cryptosporidium PCR Not Detected (NotDetected); Cyclospora cayetanensis PCR Not Detected (NotDetected); Entamoeba histolytica PCR Not Detected (NotDetected); Enteroaggregative E.coli(EAEC) Not Detected (NotDetected); Enteropathogenic E.coli (EPEC) Not Detected (NotDetected); Enterotoxigenic E.coli (ETEC) Not Detected (NotDetected); Giardia lamblia PCR Not Detected (NotDetected); Norovirus GI/GII PCR Not Detected (NotDetected); Plesiomonas shigelloides PCR Not Detected (NotDetected); Rotavirus A PCR Not Detected (NotDetected); Salmonella PCR Not Detected (NotDetected); Sapovirus PCR Not Detected (NotDetected); Shiga-like Toxin E.coli (STEC) Not Detected (NotDetected); Shigella/Enteroinvasive E.coli Not Detected (NotDetected); Vibrio cholerae PCR Not Detected (NotDetected); Vibrio species PCR Not Detected (NotDetected); Yersinia enterocolitica PCR Not Detected (NotDetected)
[2023-07-04] MEDS: SUMAtriptan succinate 50 MG TAB PO PRN (20:15)
[2023-07-04 23:06] LABS: Marijuana Quant, GCMS Urine 2261 ng/mL (<5)
[2023-07-05 06:11] LABS: Basophils # (auto) 0.03 K/uL (0.00-0.20); Basophils % (auto) 0.5 %; Eosinophils % (auto) 3.2 %; Hematocrit (blood only) 37.6 % (37.0-47.0); Hemoglobin 12.6 g/dl (12.0-16.0); Immature Granulocytes # (auto) 0.02 K/uL (0.01-0.20); Immature Granulocytes % (auto) 0.3 %; Lymphocytes # (auto) 2.22 K/uL (1.20-3.40); Lymphocytes % (auto) 35.3 %; Mean Corpuscular Hemoglobin 31.6 pg (25.0-34.0); Mean Corpuscular Hgb Conc 33.5 g/dL (32.0-36.0); Mean Corpuscular Volume 94.2 fL (80.0-100.0); Mean Platelet Volume 9.9 fL (9.4-12.4); Monocytes # (auto) 0.47 K/uL (0.11-0.59); Monocytes % (auto) 7.5 %; Neutrophils # (auto) 3.35 K/uL (1.40-6.50); Neutrophils % (auto) 53.2 %; Platelet Count 183 K/uL (130-400); RDW Standard Deviation 48.3 fL (36.4-46.3); Red Blood Count 3.99 M/uL (4.20-5.40); White Blood Count 6.29 K/ul (4.8-10.8)
[2023-07-05 06:29] LABS: BUN Creatinine Ratio 15.1 (10-20); Calcium 8.2 mg/dl (8.6-10.3); Creatinine Clr Calc Pharmacy 60.9 ml/min; Est GFR (African American) 108.2 ml/min; Est GFR (Non-African American) 93.4 ml/min; Magnesium 1.5 mg/dl (1.7-2.4); Phosphorus 3.4 mg/dl (2.5-4.9)
--- NOTE | 2023-07-05 08:42 | Hospitalist Progress Note ---
Date of Service July 05, 2023 Assessment & Plan (1) Nausea, vomiting and diarrhea: Plan: 52 F with chronic, persistent nausea/vomiting, abdominal pain, and diarrhea x 6 months, who presents to the emergency room with profound weakness 2/2 poor oral intake. Admitted to the hospital for management of hypokalemia, evaluation of persistent abdominal pain/nausea. Nausea/Vomiting/Diarrhea/Abdominal Pain -Chronic, persistent; unknown etiology -Etiology unclear. Based on HPI, physical exam suspect current symptomatology is largely anxiety/stress driven. However, initial trigger is likely gastrointestinal in origin. Therefore, cannot exclude dysmotility, inflammatory causes like severe celiac, IBS, or endocrine. Lower suspicion for functional dyspepsia given diarrhea. Suspect trigger points may be partially responsible. -Also considering, though not at this time, endocrinologic/neoplastic causes: Pancreatic insufficiency, neuroendocrine/pancreatic tumor. Will consider if initial workup noncontributory. -Patient is currently tentatively scheduled for upper/lower endoscopy next week. GI consulted, though they are deferring scopes to outpatient. -Initiated expanded diagnostic workup: Stool panel negative, a.m. cortisol mil dly elevated, iron profile normal, ESR/CRP negative. Remaining workup results pending (see below): -Completed bedside trigger point injection and abdomen immediately proximal to umbilicus. * IgA transglutaminase, stool panel (O&P, C. difficile, bio fire PCR), fecal calprotectin, fecal fat pending * Trigger point injection planned for 07/04. Assess for clinical improvement. * Pain control regimen: Continue home Percocet * IV Zofran 4 mg every 6 hours as needed for nausea * Voltaren gel as needed for trigger point pain * Reassess trigger point injection site pain on exam tomorrow. Anxiety/Depression -Chronic * Continue home fluoxetine, buspirone, clonazepam Hypomagnesemia -Mg 1.5, with only slight increase to 1.6 despite advancing diet x24 hours * Repleted with IV Mg sulfate x 2 g * Trend on a.m. labs Acute hypokalemia- resolved -K 2.9 on admission. Mg 1.8. S/p repletion x 10 mEq K in the ED and 40 mEq upon admission -Lethargy, weakness, but no focal deficits or evidence of ambulatory dysfunction on exam. -No arrhythmias on EKG * Continue to monitor Code: Full code Dispo: Med-Surg FEN/GI: LR @maintenance rate. Regular diet as tolerated DVT Prophylaxis: Lovenox 40 mg q24h Consults: GI (2) Acute hypokalemia: (3) Depression: Admission and Anticipated Discharge Date Admission Date: July 04, 2023 Supervising Physician Co-Signing Physician Notes I personally examined the patient and verified all banks points of history and exam, discussed case, and agree with decision making with Dr Bassett felt a bit better this morning, little bit worse this afternoonalthough worse seems to be more nonspecific she does have a little bit worsening abdominal pain and nausea but has not had vomiting and was able to eat about half of her lunch. It is more having to get up and go to the bathroom, and feeling overall fatigue. Extensive discussion on trigger points, consent for injectioninjection performedsee separate procedure note. Vitals noted, in general she is awake and alert pleasant no distress. breathing unlabored no accessory muscle use good effort. Skin without rashes pallor or icterus. Trigger point present about 2 cm proximal to umbilicus just left of midline Intractable nausea vomiting diarrhea abdominal pain as well as what appears to be fairly severe protein calorie malnutritionetiology likely multifactorial. Right nowtrigger points certainly could be a culprit (injected, continue Voltaren gel, follow for response), also is responding nicely to hydration and nutrition suggesting that at this point she may have suffered an acute illness that led to her getting dehydrated and malnourished, but that the dehydration and malnutrition themselves were perpetuating her GI symptoms (reduce IV hydration, follow p.o. intake, doing surprisingly well), anxiety (we discussed that this does not appear to be the central "root cause" but rather more of an amplifying factor) (Home meds, improved symptoms, reassurance and supportive care), other etiologies possibleat this point fecal fat and calprotectin are pending, tissue transglutaminase is pending, and EGD and colonoscopy are to be performed next week. Certainly other differentials loom should we not see improvement or not have enough working diagnoses to affect significant improvementbut at this point it seems most logical to await the pending tests and continue with supportive care rather than broad testing based on any/all "could be" differentialsrather it would be more prudent to work stepwise, especially given that she is showing such significant improvement. DVT proph ambulation for now, pharmacologic if she proves to be more w eak/nonambulatory than expected. Subjective Patient awake at bedside this morning. Able to tolerate most of breakfast this morning. Had taken Zofran 30 minutes prior to breakfast, which worked for her. Ambulating to and from restroom without assistance. Denies abdominal pain, nausea, or diarrhea. Review of Systems Review of Systems: All systems reviewed & are unremarkable except as noted in HPI & below Physical Exam Physical Exam: General: No acute distress HEENT: PERRLA. Normal conjunctiva, anicteric sclera. Oropharynx normal. Respiratory: Normal respiratory effort, CTABL. Cardiovascular: RRR without murmurs, gallops, or rubs. No pedal edema. GI: Soft abdomen with normal bowel sounds heard on auscultation. Nontender x4 quadrants Neuro: Alert and oriented x3. Results & Data Results & Data Vital Signs (Past 12 Hours) Vital Signs Temp Pulse Resp BP Pulse Ox O2 Del Method 07/05/23 07:35 36.8 C 66 18 105/71 98 Room Air Resident Activity Tracking Resident Involvement: Resident Care Provided Care Provided: Adult Hospital Medicine (3) Depression Active/Remission status: currently active Depression Type: major depressive disorder Major depression episode severity: severe Major depression recurrence: unspecified whether recurrent Psychotic features: without psychotic features Qualified Code(s): F32.2 - Major depressive disorder, single episode, severe without psychotic features
[2023-07-05] MEDS: MAGNESIUM SULFATE / D5W 1 GM/100 ML BAG IV SCH (09:29)
--- NOTE | 2023-07-05 19:03 | Billing Data ---
Date of Service July 05, 2023 Coding Level of Care Code 21232 SUB INP/OBS CARE 3/50MIN Comment and trigger point injection x1
--- NOTE | 2023-07-05 19:05 | Communication Note ---
Date of Service: July 05, 2023 Procedure note: Abdominal wall trigger point injection informed consent obtained. Area cleansed with ethanol and then Betadine. Sterile gloves utilized. Dr. Bassett Under my direct and close supervision localized her abdominal wall trigger point x1 at approximately 2 cm proximal to her umbilicus and slightly left of midline, and proceeded to inject with 1 mL of 2% lidocaine without epinephrine after needling was performed. Patient tolerated extremely well. No hemostasis procedures necessary as it was completely spontaneous.
[2023-07-05] MEDS: TOPIRAMATE 100 MG TAB PO SCH (21:20)
[2023-07-06 06:55] LABS: Basophils # (auto) 0.03 K/uL (0.00-0.20); Basophils % (auto) 0.5 %; Hematocrit (blood only) 35.8 % (37.0-47.0); Hemoglobin 12.1 g/dl (12.0-16.0); Immature Granulocytes # (auto) 0.02 K/uL (0.01-0.20); Immature Granulocytes % (auto) 0.3 %; Lymphocytes # (auto) 1.72 K/uL (1.20-3.40); Lymphocytes % (auto) 26.1 %; Mean Corpuscular Hemoglobin 31.3 pg (25.0-34.0); Mean Corpuscular Hgb Conc 33.8 g/dL (32.0-36.0); Mean Corpuscular Volume 92.5 fL (80.0-100.0); Mean Platelet Volume 10.1 fL (9.4-12.4); Monocytes # (auto) 0.51 K/uL (0.11-0.59); Monocytes % (auto) 7.7 %; Neutrophils # (auto) 4.11 K/uL (1.40-6.50); Neutrophils % (auto) 62.4 %; Platelet Count 183 K/uL (130-400); RDW Standard Deviation 47.9 fL (36.4-46.3); Red Blood Count 3.87 M/uL (4.20-5.40); White Blood Count 6.59 K/ul (4.8-10.8)
[2023-07-06 07:32] LABS: BUN Creatinine Ratio 17.5 (10-20); Calcium 7.9 mg/dl (8.6-10.3); Creatinine Clr Calc Pharmacy 70.6 ml/min; Est GFR (African American) 117.9 ml/min; Est GFR (Non-African American) 101.7 ml/min; Magnesium 1.8 mg/dl (1.7-2.4); Phosphorus 3.1 mg/dl (2.5-4.9); Potassium 3.9 mmol/L (3.5-5.1)
--- NOTE | 2023-07-06 07:42 | Hospitalist Progress Note ---
Date of Service July 06, 2023 Assessment & Plan (1) Nausea, vomiting and diarrhea: Plan: 52 F with chronic, persistent nausea/vomiting, abdominal pain, and diarrhea x 6 months, who presents to the emergency room with profound weakness 2/2 poor oral intake. Admitted to the hospital for management of hypokalemia, evaluation of persistent abdominal pain/nausea. Nausea/Vomiting/Diarrhea/Abdominal Pain -Chronic, persistent; unknown etiology -Etiology unclear. Based on HPI, physical exam suspect current symptomatology is largely anxiety/stress driven. However, initial trigger is likely gastrointestinal in origin. Therefore, cannot exclude dysmotility, inflammatory causes like severe celiac, IBS, or endocrine. Lower suspicion for functional dyspepsia given diarrhea. Suspect trigger points may be partially responsible. -Also considering, though not at this time, endocrinologic/neoplastic causes: Pancreatic insufficiency, neuroendocrine/pancreatic tumor. Will consider if initial workup noncontributory. -Patient is currently tentatively scheduled for upper/lower endoscopy next week. GI consulted, though they are deferring scopes to outpatient. -Initiated expanded diagnostic workup: Stool panel negative, a.m. cortisol mil dly elevated, iron profile normal, ESR/CRP negative. Remaining workup results pending (see below): -Completed bedside trigger point injection and abdomen immediately proximal to umbilicus. * IgA transglutaminase, stool panel (O&P, C. difficile, bio fire PCR), fecal calprotectin, fecal fat pending * Trigger point injection planned for 07/04. Assess for clinical improvement. * Pain control regimen: Continue home Percocet * IV Zofran 4 mg every 6 hours as needed for nausea * Voltaren gel as needed for trigger point pain * Awaiting endoscopy/colonoscopy 07/08 Anxiety/Depression -Chronic * Continue home fluoxetine, buspirone, clonazepam Hypomagnesemia -Mg 1.5, with only slight increase to 1.6 despite advancing diet x24 hours * Repleted with IV Mg sulfate x 2 g * Trend on a.m. labs Acute hypokalemia- resolved -K 2.9 on admission. Mg 1.8. S/p repletion x 10 mEq K in the ED and 40 mEq upon admission -Lethargy, weakness, but no focal deficits or evidence of ambulatory dysfunction on exam. -No arrhythmias on EKG * Continue to monitor Code: Full code Dispo: Med-Surg FEN/GI: LR @maintenance rate. Regular diet as tolerated DVT Prophylaxis: Lovenox 40 mg q24h Consults: GI (2) Acute hypokalemia: (3) Depression: Admission and Anticipated Discharge Date Admission Date: July 04, 2023 Supervising Physician Co-Signing Physician Notes I personally examined the patient and verified all banks points of history and exam, discussed case, and agree with decision making with Dr Bassett A little bit sore at injection site, and also nausea and stomach pain mildly worse today. Vitals noted, in general she is awake and alert pleasant no distress. HEENT normocephalic atraumatic mucous membranes moist. Breathing unlabored no accessory muscle use good effort. Skin shows no rashes no pallor or icterus. Neuro without focal deficits. Skin without rashes pallor or icterus, very small puncture site from trigger point injection healing nicely no bruising no erythema. Intractable nausea vomiting diarrhea abdominal pain as well as what appears to be fairly severe protein calorie malnutritionetiology likely multifactorial. - Malnutrition itself seems to have been a significant part of her nausea vomiting and diarrheaI do suspect a big part of this was that she had some sort of illness that got her into "a hole" at some point last year, but given how well she has done simply with IV fluids and supportive care and is now eating reasonably well without vomiting or diarrhea, I strongly suspect she had reached a point where she no longer had the acute illness, but was really sick from malnutrition, and this cycle seems to be breaking itself nicely with p.o. intake and supportive care - trigger pointgiven that she is feeling a little bit worse the day after injection, that is consistent with a trigger point also playing a role in her stomach pain and nausea. Discussed that often people do get worse before better, but that the good thing with that is that now we know the trigger point is likely part of her "high chart" of symptom etiologiescontinue Voltaren gel, could consider reinjection in 2 weeks or so, but at the same time she is likely to start to have symptom improvement from the trigger point as the injection t emiliano starts to "take effect"which is often 5 or so days after injection. - Anxietyramona certainly seems to have had anxiety as an amplifying factor for her GI symptoms, and the fact that she is feeling betteri.e. also more reassured that there will be a "light at the end of the tunnel" and that she knows she is in a supportive environment with the team looking after her her anxiety as it relates to her GI symptoms seems to be much improved, but also does appear to have been a perpetuating factor -----> fairly strong evidence against inflammatory bowel disease at this point (CTs without bowel wall inflammation, normal inflammatory markers, diarrhea was never blood or mucus), fairly strong case against celiac (TTG negative, inflammatory markers negative, will have EGD next week as well p.o. intake does not seem to be exacerbating symptoms), other differentials are starting to appear less and less likely DVT proph ambulation for now, pharmacologic if she proves to be more weak/nonambulatory than expected. Subjective Patient is awake and alert in bed this morning. She reports some mild, lingering nausea, though she was able to finish her breakfast this morning. She is yet to have a bowel movement but is "working on one right now." She also reports some injection site tenderness (she received trigger point injection yesterday) but Voltaren gel has been helping. She would also like her twice daily medications to be adjusted so that she takes her second dose no later than 3 PM. Review of Systems Review of Systems: All systems reviewed & are unremarkable except as noted in HPI & below Physical Exam Physical Exam: General: No acute distress HEENT: PERRLA. Normal conjunctiva, anicteric sclera. Oropharynx normal. Respiratory: Normal respiratory effort, CTABL. Cardiovascular: RRR without murmurs, gallops, or rubs. No pedal edema. GI: Soft abdomen with normal bowel sounds heard on auscultation. Nontender x4 quadrants Neuro: Alert and oriented x3. Results & Data Results & Data Vital Signs (Past 12 Hours) Vital Signs O2 Del Method 07/05/23 19:53 Room Air Resident Activity Tracking Resident Involvement: Resident Care Provided Care Provided: Adult Hospital Medicine (3) Depression Active/Remission status: currently active Depression Type: major depressive disorder Major depression episode severity: severe Major depression recurrence: unspecified whether recurrent Psychotic features: without psychotic features Qualified Code(s): F32.2 - Major depressive disorder, single episode, severe without psychotic features
--- NOTE | 2023-07-06 15:25 | Billing Data ---
Date of Service July 06, 2023 Coding Level of Care Code 39029 SUB INP/OBS CARE MIN
[2023-07-07 06:52] LABS: Basophils # (auto) 0.04 K/uL (0.00-0.20); Basophils % (auto) 0.6 %; Eosinophils # (auto) 0.23 K/uL (0.00-0.50); Eosinophils % (auto) 3.4 %; Hematocrit (blood only) 39.9 % (37.0-47.0); Hemoglobin 13.1 g/dl (12.0-16.0); Immature Granulocytes # (auto) 0.04 K/uL (0.01-0.20); Immature Granulocytes % (auto) 0.6 %; Lymphocytes # (auto) 1.79 K/uL (1.20-3.40); Lymphocytes % (auto) 26.4 %; Mean Corpuscular Hgb Conc 32.8 g/dL (32.0-36.0); Mean Corpuscular Volume 94.3 fL (80.0-100.0); Mean Platelet Volume 10.2 fL (9.4-12.4); Monocytes # (auto) 0.56 K/uL (0.11-0.59); Monocytes % (auto) 8.2 %; Neutrophils # (auto) 4.13 K/uL (1.40-6.50); Neutrophils % (auto) 60.8 %; Platelet Count 186 K/uL (130-400); RDW Coefficient of Variation 14.1 % (11.5-14.5); RDW Standard Deviation 48.7 fL (36.4-46.3); Red Blood Count 4.23 M/uL (4.20-5.40); White Blood Count 6.79 K/ul (4.8-10.8)
[2023-07-07 07:14] LABS: BUN Creatinine Ratio 15.8 (10-20); Calcium 8.3 mg/dl (8.6-10.3); Creatinine Clr Calc Pharmacy 58.5 ml/min; Est GFR (African American) 103.1 ml/min; Est GFR (Non-African American) 88.9 ml/min; Magnesium 1.6 mg/dl (1.7-2.4); Phosphorus 2.8 mg/dl (2.5-4.9); Potassium 4.3 mmol/L (3.5-5.1)
--- NOTE | 2023-07-07 11:49 | Hospitalist Progress Note ---
Date of Service July 07, 2023 Assessment & Plan (1) Nausea, vomiting and diarrhea: Plan: 52 F with chronic, persistent nausea/vomiting, abdominal pain, and diarrhea x 6 months, who presents to the emergency room with profound weakness 2/2 poor oral intake. Admitted to the hospital for management of hypokalemia, evaluation of persistent abdominal pain/nausea. Nausea/Vomiting/Diarrhea/Abdominal Pain -Chronic, persistent; unknown etiology -Etiology unclear. Based on HPI, physical exam suspect current symptomatology is largely anxiety/stress driven. However, initial trigger is likely gastrointestinal in origin. Therefore, cannot exclude dysmotility, inflammatory causes like severe celiac, IBS, or endocrine. Lower suspicion for functional dyspepsia given diarrhea. Suspect trigger points may be partially responsible. -Also considering, though not at this time, endocrinologic/neoplastic causes: Pancreatic insufficiency, neuroendocrine/pancreatic tumor. Will consider if initial workup noncontributory. -Patient is currently tentatively scheduled for upper/lower endoscopy next week. GI consulted, though they are deferring scopes to outpatient. -Initiated expanded diagnostic workup: Stool panel negative, a.m. cortisol mil dly elevated, iron profile normal, ESR/CRP negative. Remaining workup results pending (see below): -Completed bedside trigger point injection and abdomen immediately proximal to umbilicus. * IgA transglutaminase, stool panel (O&P, C. difficile, bio fire PCR), fecal calprotectin, fecal fat pending * Pain control regimen: Continue home Percocet as needed * IV Zofran 4 mg every 6 hours as needed, IV Phenergan 5 mg every 6 hours as needed for nausea * Voltaren gel as needed for trigger point pain * Awaiting endoscopy/colonoscopy 07/08 Anxiety/Depression -Chronic * Continue home fluoxetine, buspirone, clonazepam Hypomagnesemia -Mg 1.5, with only slight increase to 1.6 despite advancing diet x24 hours * Repleted with IV Mg sulfate x 2 g * Trend on a.m. labs, replete with IV Mg as needed Acute hypokalemia- resolved -K 2.9 on admission. Mg 1.8. S/p repletion x 10 mEq K in the ED and 40 mEq upon admission -Lethargy, weakness, but no focal deficits or evidence of ambulatory dysfunction on exam. -No arrhythmias on EKG * Continue to monitor Code: Full code Dispo: Med-Surg FEN/GI: LR @maintenance rate. Regular diet as tolerated DVT Prophylaxis: Lovenox 40 mg q24h Consults: GI (2) Acute hypokalemia: (3) Depression: (4) Hypomagnesemia: Admission and Anticipated Discharge Date Admission Date: July 04, 2023 Supervising Physician Co-Signing Physician Notes I personally examined the patient and verified all banks points of history and exam, discussed case, and agree with decision making with Dr Bassett Feeling mildly worse than the last day or 2 again. and daughter present, updated all to the best my ability. She is still able to eat, and overall is still doing much better than prior to admission.. Vitals noted, in general she is awake and alert pleasant no distress. HEENT normocephalic atraumatic mucous membranes moist. Breathing unlabored no accessory muscle use good effort. Skin shows no rashes no pallor or icterus. Neuro without focal deficits. Skin without rashes pallor or icterus, very small puncture site from trigger point injection healing nicely no bruising no erythema. She still has 1 other palpable left upper quadrant trigger point, but it surprisingly nontender, she does have some epigastric tenderness without guarding rebound or rigidity Intractable nausea vomiting diarrhea abdominal pain as well as what appears to be fairly severe protein calorie malnutritionetiology likely multifactorial. - Malnutrition itself seems to have been a significant part of her nausea vomiting and diarrheaI do suspect a big part of this was that she had some sort of illness that got her into "a hole" at some point last year, but given how well she has done simply with IV fluids and supportive care and is now eating reasonably well without vomiting or diarrhea, I strongly suspect she had reached a point where she no longer had the acute illness, but was really sick from malnutrition, and this cycle seems to be breaking itself nicely with p.o. intake and supportive care - trigger pointgiven that she is feeling a little bit worse after injection, that is consistent with a trigger point also playing a role in her stomach pain and nausea. Discussed that often people do get worse before better, but that the good thing with that is that now we know the trigger point is likely part of her "pie chart" of symptom etiologiescontinue Voltaren gel, could consider reinjection in 2 weeks or so, but at the same time she is likely to start to have symptom improvement from the trigger point as the injection truly starts to "take effect"which is often 5 or so days after injection (probably around Saturday or Saturday). - Cyndi certainly seems to have had anxiety as an amplifying factor for her GI symptoms, and the fact that she is feeling betteri.e. also more reassured that there will be a "light at the end of the tunnel" and that she knows she is in a supportive environment with the team looking after her her anxiety as it relates to her GI symptoms seems to be much improved, but also does appear to have been a perpetuating factor ---> has EGD on Saturdaywe discussed that certainly some of her symptoms could easily be consistent with PUDand that easily could be a contributor as well; also discussed if the EGD is negative, and if ongoing aggressive management of her trigger point does not yield full or nearly full resolution of her "stomach feeling" symptoms, an element of functional dyspepsia could also be at play. Discussed that that could be really hard to tease apart from the trigger point symptoms right nowbecause both essentially are "neurologic lies" that trick our brain into thinking we have a stomach problem when really it is either a somatic visceral reflex (trigger point) or essentially a sensory neuropathy of the upper GI tract (functional dyspepsia)and therefore really the only way to tease out if there is an element of functional dyspepsia or not would be (a) no PUD, and (b) incomplete response to trigger point management after going after it aggressively for several weeks to a monthif that becomes the case, then functional dyspepsia management with meds and is well as mind-body solutions (pain psychology, biofeedback) -----> fairly strong evidence against inflammatory bowel disease at this point (CTs without bowel wall inflammation, normal inflammatory markers, diarrhea was never blood or mucus), fairly strong case against celiac (TTG negative, inflammatory markers negative, will have EGD next week as well p.o. intake does not seem to be exacerbating symptoms), other differentials are starting to appear less and less likely and some (such as neuroendocrine tumor) were extremely unlikely even to begin with DVT proph ambulation for now, pharmacologic if she proves to be more weak/nonambulatory than expected. probably home after endoscopic w/u rishi (*for transition of care purposes, known factors as well as remaining fairly suspicious factors driving her symptoms are bolded above) Subjective Patient is awake and alert in bed this morning about to eat breakfast. She reports her nausea is worse this morning, though has not taken antiemetic this morning. Abdominal pain about the same from yesterday. Review of Systems Review of Systems: All systems reviewed & are unremarkable except as noted in HPI & below Physical Exam Physical Exam: General: no acute distress, speaking in full sentences Resp: good inspiratory effort, no labored breathing HEENT: conjunctivae appear clear, no audible congestion, no swelling noted face or lips Skin: skin appears dry, normal coloration, no rash visible on exposed skin areas Neuro: alert and oriented x3, no focal deficits appreciated Psych: euthymic affect, pleasant and interactive, logical thought process Results & Data Results & Data Vital Signs (Past 12 Hours) Vital Signs Temp Pulse Resp BP Pulse Ox O2 Del Method 07/07/23 07:15 36.8 C 52 L 18 112/71 95 Room Air Resident Activity Tracking Resident Involvement: Resident Care Provided Care Provided: Adult Hospital Medicine (3) Depression Active/Remission status: currently active Depression Type: major depressive disorder Major depression episode severity: severe Major depression recurrence: unspecified whether recurrent Psychotic features: without psychotic features Qualified Code(s): F32.2 - Major depressive disorder, single episode, severe without psychotic features
[2023-07-07] MEDS: MAGNESIUM SULFATE / D5W 1 GM/100 ML BAG IV SCH (12:18)
[2023-07-07] MEDS: busPIRone 15 MG TAB PO SCH (14:39)
[2023-07-07] MEDS: TOPIRAMATE 100 MG TAB PO SCH (14:39)
--- NOTE | 2023-07-07 18:11 | Billing Data ---
Date of Service July 07, 2023 Coding Level of Care Code 53217 SUB INP/OBS CARE MIN
--- NOTE | 2023-07-08 07:05 | Hospitalist Progress Note ---
Date of Service July 08, 2023 Assessment & Plan (1) Nausea, vomiting and diarrhea: Plan: 52 F with chronic, persistent nausea/vomiting, abdominal pain, and diarrhea x 6 months, who presents to the emergency room with profound weakness 2/2 poor oral intake. Admitted to the hospital for management of hypokalemia, evaluation of persistent abdominal pain/nausea. Nausea/Vomiting/Diarrhea/Abdominal Pain -Chronic, persistent; unknown etiology -Etiology unclear. Based on HPI, physical exam suspect current symptomatology is largely anxiety/stress driven. However, initial trigger is likely gastrointestinal in origin. Therefore, cannot exclude dysmotility, inflammatory causes like severe celiac, IBS, or endocrine. Lower suspicion for functional dyspepsia given diarrhea. Suspect trigger points may be partially responsible. -Also considering, though not at this time, endocrinologic/neoplastic causes: Pancreatic insufficiency, neuroendocrine/pancreatic tumor. Will consider if initial workup noncontributory. -Initiated expanded diagnostic workup: Stool panel negative, a.m. cortisol mildly elevated, iron profile normal, ESR/CRP negative. Remaining workup results pending (see below): -Completed bedside trigger point injection 07/04 immediately proximal to umbilicus. * fecal calprotectin and fecal fat pending * stool panel, IgA TTG neg * US gallbladder ordered * Pain control regimen: Continue home Percocet as needed * IV Zofran 4 mg q6hr, IV Phenergan 5 mg q6hr, IV prochlorperazine 5 mg q6hr PRN as needed for nausea * Voltaren gel as needed for trigger point pain * Awaiting endoscopy/colonoscopy 07/08 Anxiety/Depression -Chronic * Continue home fluoxetine, buspirone, clonazepam Hypomagnesemia- resolved - replete PRN; no signs of refeeding syndrome Hypokalemia- resolved -K 2.9 on admission. Mg 1.8. S/p repletion x 10 mEq K in the ED and 40 mEq upon admission -Lethargy, weakness, but no focal deficits or evidence of ambulatory dysfunction on exam. -No arrhythmias on EKG Code: Full Dispo: med/surg, pending scopes 07/08 FEN/GI: LR @maintenance rate. Clear liquids, NPO at midnight for endoscopy tomorrow DVT Prophylaxis: Lovenox 40 mg q24h Consults: GI (2) Acute hypokalemia: (3) Depression: (4) Hypomagnesemia: Admission and Anticipated Discharge Date Admission Date: July 04, 2023 Supervising Physician Co-Signing Physician Notes ATTESTATION I also saw the patient and confirmed banks portions of the history and exam. I agree with the impression and plan in the resident documentation, and as summarized below. Patient without any pain, low-grade nausea this morning. She is somewhat tearful today relying last 8 months or so of medical appointments. is at bedside. Scheduled for panendoscopy tomorrow.. EXAM 104/52, 52, 16, 36.4, 100% room air Alert and oriented; tearful Respirations nonlabored Heart regular DATA Labs Hemoglobin 13.4 Sodium 139, potassium 4.2, BUN 9, creatinine 0.81 IMPRESSION & PLAN Nausea, vomiting with weight loss Epigastric abdominal pain Anxiety Plan is for EGD/colonoscopy tomorrow; orders for prep have been placed by GI Difficult to tell what is related to anxiety/depression, or if GI etiology is le ading to increased anxiety Previous workup has shown normal inflammatory markers; fecal calprotectin levels pending, but IBD seems less likely Could consider gallbladder ultrasound/HIDA to exclude gallbladder dysfunction/hyperkinetic gallbladder Additional per resident documentation Subjective 52 F with chronic, persistent nausea/vomiting, abdominal pain, and diarrhea x 6 months, who presents to the emergency room with profound weakness 2/2 poor oral intake. Admitted to the hospital for management of hypokalemia, evaluation of p ersistent abdominal pain/nausea. Pt states it was a rough weekend; however, she continues to eat more in the hospital than prior to her hospitalization. No new concerns. Pt eating pancakes this AM as she will be preparing for her colonoscopy later today. Review of Systems Review of Systems: As per HPI Physical Exam Physical Exam: Constitutional: well appearing, no acute distress HEENT: normocephalic, no conjunctival injection CV: clinically well perfused Respiratory: no increased work of breathing MSK: no gross deformities noted Skin: warm, dry, no rashes Neuro: alert, oriented, no FND noted Psych: mood and affect congruent Results & Data Results & Data Vital Signs (Past 12 Hours) Vital Signs Temp Pulse Resp BP Pulse Ox O2 Del Method 07/07/23 19:32 36.5 C 63 16 104/60 98 Room Air Resident Activity Tracking Resident Involvement: Resident Care Provided Care Provided: Adult Hospital Medicine (3) Depression Active/Remission status: currently active Depression Type: major depressive disorder Major depression episode severity: severe Major depression recurrence: unspecified whether recurrent Psychotic features: without psychotic features Qualified Code(s): F32.2 - Major depressive disorder, single episode, severe without psychotic features
[2023-07-08 08:29] LABS: Basophils # (auto) 0.04 K/uL (0.00-0.20); Basophils % (auto) 0.8 %; Eosinophils # (auto) 0.19 K/uL (0.00-0.50); Eosinophils % (auto) 3.6 %; Hematocrit (blood only) 41.1 % (37.0-47.0); Hemoglobin 13.4 g/dl (12.0-16.0); Immature Granulocytes # (auto) 0.04 K/uL (0.01-0.20); Immature Granulocytes % (auto) 0.8 %; Lymphocytes % (auto) 35.6 %; Mean Corpuscular Hemoglobin 31.1 pg (25.0-34.0); Mean Corpuscular Hgb Conc 32.6 g/dL (32.0-36.0); Mean Corpuscular Volume 95.4 fL (80.0-100.0); Monocytes # (auto) 0.46 K/uL (0.11-0.59); Monocytes % (auto) 8.6 %; Neutrophils % (auto) 50.6 %; Platelet Count 191 K/uL (130-400); RDW Coefficient of Variation 14.5 % (11.5-14.5); RDW Standard Deviation 50.8 fL (36.4-46.3); Red Blood Count 4.31 M/uL (4.20-5.40); White Blood Count 5.33 K/ul (4.8-10.8)
[2023-07-08 08:49] LABS: BUN Creatinine Ratio 11.1 (10-20); Calcium 8.6 mg/dl (8.6-10.3); Creatinine Clr Calc Pharmacy 54.9 ml/min; Est GFR (African American) 95.4 ml/min; Est GFR (Non-African American) 82.3 ml/min; Magnesium 1.9 mg/dl (1.7-2.4); Phosphorus 2.8 mg/dl (2.5-4.9); Potassium 4.2 mmol/L (3.5-5.1)
--- NOTE | 2023-07-08 09:24 | Gastroenterology Progress Note ---
Date of Service July 08, 2023 Assessment & Plan (1) Nausea, vomiting and diarrhea: (2) Epigastric abdominal pain: Plan I discussed case with Dr. Solano. Will plan for EGD and colonoscopy for tomorrow. - will change diet to clear liquids today. will make NPO at midnight tonight. - will plan to prep out today with a miralax prep. - plan to proceed with colonoscopy and EGD for tomorrow 07/09/[address] Luna. - continue with zofran 4mg IV q 6 hours as needed nausea/vomiting. Admission and Anticipated Discharge Date Admission Date: July 04, 2023 Subjective Patient with complaints of a 10 month history of nausea, vomiting, diarrhea, and abdominal pain. She was able to tolerate her entire breakfast this morning. she tells me as long as she gets her nausea and pain medications she is able to eat. still has ongoing nausea. no vomiting since admission. still mid epigastric abdominal pain that she rates as a 5/10 as long as she takes her pain medications, otherwise, it is worse. she describes this as a "dull nausea pain". she reports she had diarrhea up until about 2 days ago and now having 1 bowel movement daily that is more normal. she denies dysphagia, heartburn, blood in stool, or melena. she was scheduled for outpatient EGD and colonoscopy on 07/08 for her symptoms and she would like to still have done since inpatient with ongoing symptoms. stool biofire was negative. stool calprotectin and h pylori are pending. Review of Systems Review of Systems: All systems reviewed & are unremarkable except as noted in HPI & below Physical Exam Constitutional: WD/WN, vitals as above Respiratory: normal respiratory effort, lungs clear to auscultation Cardiovascular: RRR, no murmur, no edema Gastrointestinal (Abdomen): mid epigastric tenderness, no guarding, soft, normal bowel sounds. Psychiatric: Orientation: alert and oriented x 3 Results & Data Results & Data Vital Signs (Past 12 Hours) Vital Signs Temp Pulse Resp BP Pulse Ox O2 Del Method 07/08/23 07:28 97.5 F L 52 L 16 104/52 L 100 Room Air Coding Level of Care Code 25008 SUB INP/OBS CARE 2/35MIN Diagnoses Nausea, vomiting and diarrhea R11.2; R19.7 Epigastric abdominal pain R10.13 Time Spent (min) 36
--- NOTE | 2023-07-08 15:10 | Ultrasound Report ---
ABDOMINAL ULTRASOUND, RIGHT UPPER QUADRANT HISTORY: chronic nausea/vomiting. COMPARISON: Abdomen and pelvis CT 07/03/2023. FINDINGS: Pancreas: The pancreas demonstrates a normal echotexture. Liver: Unremarkable. Gallbladder: No gallbladder wall thickening. No gallstones. CBD: 4 mm. Right kidney: No hydronephrosis. IMPRESSION: No significant abnormality identified within the right upper quadrant. ACT 112: Negative or not required by law. Electronically signed by: Satya Webber M.D. 07/08/2023 3:08 PM
[2023-07-08] MEDS ORDERED: POLYETHYLENE (MIRALAX) 17 GM PACK PO SCH (18:00)
[2023-07-08] MEDS: LAVAGE SOLUTION 4000ML PO SCH (18:13)
[2023-07-09 06:43] LABS: Hematocrit (blood only) 39.1 % (37.0-47.0); Mean Corpuscular Hemoglobin 31.4 pg (25.0-34.0); Mean Corpuscular Hgb Conc 33.2 g/dL (32.0-36.0); Mean Corpuscular Volume 94.4 fL (80.0-100.0); Mean Platelet Volume 9.8 fL (9.4-12.4); Platelet Count 186 K/uL (130-400); RDW Coefficient of Variation 14.4 % (11.5-14.5); RDW Standard Deviation 49.5 fL (36.4-46.3); Red Blood Count 4.14 M/uL (4.20-5.40); White Blood Count 5.66 K/ul (4.8-10.8)
[2023-07-09 07:10] LABS: BUN Creatinine Ratio 10.3 (10-20); Calcium 8.5 mg/dl (8.6-10.3); Est GFR (African American) 99.9 ml/min; Est GFR (Non-African American) 86.2 ml/min
--- NOTE | 2023-07-09 09:38 | History & Physical Bridge Note ---
Date of Service July 09, 2023 History & Physical Bridge Note I have examined the patient, reviewed the History & Physical and in the interval since the performance of the History & Physical I have noted the following changes of clinical significance: no changes noted. still having nausea and epigastric pain. she tells me her stools are clear after her prep. she denies any SOB/chest pain. she has been NPO. planned for EGD and Colonoscopy today.
--- NOTE | 2023-07-09 10:29 | Anesthesiology Consultation ---
Date of Service July 09, 2023 Assessment & Plan Chart Review Chart Review: Acceptable Risk for Surgery and Patient NOT seen in Pre Admission Testing Consults Requested none History Surgery Operation Date: 07/09/23 10:15 Proposed Procedures p Colonoscopy EGD Dr. Cheryl Luna MD Height/Weight Height: 5 ft 4 in Weight: 43.8 kg Allergies Allergy/AdvReac Type Severity Reaction Status Date / Time gabapentin Allergy Severe "EVERY Verified 07/09/23 10:25 SIDE AFFECT YOU CAN GET WITH THIS DRUG" pregabalin Allergy Severe "EVERY Verified 07/09/23 10:25 SIDE AFFECT YOU CAN GET WITH THIS DRUG" trazodone AdvReac Unknown Gastrointestinal Verified 07/09/23 10:26 Upset Medications Home Medications Medication Instructions Recorded Confirmed Last Taken Wheelchair (Manual) #1 ea 08/30/22 06/07/23 Unknown sumatriptan succinate 50 mg tablet 50 mg PO UD PRN Migraine Headache 08/30/22 07/03/23 Unknown (Imitrex) clonazepam 1 mg tablet 1 mg PO DAILY 05/17/23 07/03/23 Unknown oxycodone-acetaminophen 10 mg-325 1 tab PO Q8H PRN Pain 05/17/23 07/03/23 Unknown mg tablet trazodone 150 mg tablet 150 mg PO DAILY 05/17/23 07/03/23 Unknown buspirone 30 mg tablet 15 mg PO BID 06/07/23 07/03/23 Unknown fluoxetine 20 mg capsule (Prozac) 40 mg PO DAILY 06/07/23 07/03/23 Unknown topiramate 100 mg capsule,extended 200 mg PO BID 06/07/23 07/03/23 Unknown release 24 hr ondansetron 8 mg disintegrating 8 mg PO Q12H #60 tabs 06/11/23 07/03/23 Unknown tablet peg 3350-electrolytes 236 240 ml PO Q10M #4,000 mL 06/27/23 07/03/23 Unknown gram-22.74 gram-6.74 gram-5.86 gram solution (GaviLyte-G) Active Medications Generic Name Dose Route Start Last Admin Trade Name Freq PRN Reason Stop Dose Admin Buspirone HCl 15 mg 07/07/23 15:00 07/08/23 15:49 Buspirone 15 Mg Tab PO 08/06/23 14:59 15 mg BID@09,15 JEAN PIERRE Administration Clonazepam 1 mg 07/04/23 09:00 07/08/23 07:59 Clonazepam 1 Mg Tab PO 08/03/23 08:59 1 mg DAILY JEAN PIERRE Administration Diclofenac Sodium 2 gm 07/03/23 21:00 07/08/23 20:56 Diclofenac Sod 1% Gel 100 Gm Tube EXT 08/02/23 20:59 2 gm QID JEAN PIERRE Administration Protocol Fluoxetine HCl 40 mg 07/04/23 09:00 07/08/23 08:04 Fluoxetine Hcl 20 Mg Cap PO 08/03/23 08:59 40 mg DAILY JEAN PIERRE Administration Lactated Ringer's 1,000 mls @ 60 mls/hr 07/03/23 10:53 07/09/23 02:58 Lr IV 08/02/23 10:52 Infused .[id number] JEAN PIERRE Infusion Ondansetron HCl 4 mg 07/03/23 10:53 07/08/23 19:22 Ondansetron Inj 2 Mg/Ml 2 Ml Vial IV 08/02/23 10:52 4 mg Q6H PRN Administration Nausea Oxycodone/Acetaminophen 1 tab 07/03/23 10:53 07/08/23 07:58 Oxycodone/Acetaminophen 10-325 Tab PO 07/17/23 10:52 1 tab Q8H PRN Administration Severe Pain (Scale 7, 8, 9,10) Sumatriptan Succinate 50 mg 07/03/23 10:53 07/04/23 22:04 Sumatriptan Succinate 50 Mg Tab PO 08/02/23 10:52 50 mg UD PRN Administration Migraine Headache Topiramate 100 mg 07/07/23 15:00 07/08/23 15:48 Topiramate 100 Mg Tab PO 08/06/23 14:59 100 mg BID@09,15 JEAN PIERRE Administration NPO Date Last Intake of Fluids: 07/08/23 Time Last Intake of Fluids: 23:30 Past Medical History Medical History Tardive dyskinesia Raynaud disease Osteoarthritis Kidney stones History of stomach ulcers Chronic steroid use 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 Attention deficit disorder (ADD) not currently taking adderall Anxiety Depression Stroke 11/2017--unknown cause, no deficits--no neurologist Migraine History of COVID-19 03/2022--mild symptoms, no symptoms now Chronic prescription opiate use Chronic pain cervical spine pain Ankle fracture, right Past Family History Family History Other Family history not known due to adoption Past Surgical History Surgical History History of dilatation and curettage History of esophagogastroduodenoscopy (EGD) History of tooth extraction Social History Smoking Status: Never smoker Do You Dip or Chew Tobacco: No Hx Alcohol Use: No Hx Substance Use: Yes substance use type: marijuana Substance Use Type Other:: medicinal mrijuana Physical Exam Vital Signs Last Vital Signs Temp 36.6 C 07/09/23 07:43 Pulse 59 L 07/09/23 07:43 Resp 16 07/09/23 07:43 BP 115/74 07/09/23 07:43 Pulse Ox 97 07/09/23 07:43 O2 Del Method Room Air 07/09/23 07:43 Constitutional WD/WN, vitals as above Respiratory normal respiratory effort, lungs clear to auscultation Cardiovascular RRR, no murmur, no edema Gastrointestinal (Abdomen) Inspection/Auscultation: normal bowel sounds; abdomen not distended Percussion/Palpation: + abdomen tender and abdomen soft; no guarding and abdomen not rigid Psychiatric A+Ox3, euthymic affect Orientation: alert and oriented x 3 Testing Laboratory Results 07/09/23 06:22 07/09/23 06:22 PT 10.9 Seconds (9.0-12.0) 07/03/23 07:05 INR 1.0 (0.9-1.1) 07/03/23 07:05 Urine Color Yellow 07/03/23 11:20 Urine Appearance Clear (Clear) 07/03/23 11:20 Urine pH 7.0 (4.5-7.5) 07/03/23 11:20 Ur Specific [place] > 1.045 (1.000-1.030) H 07/03/23 11:20 Urine Protein Trace (Negative) H 07/03/23 11:20 Urine Glucose (UA) Negative (Negative) 07/03/23 11:20 Urine Ketones 1+ (Negative) H 07/03/23 11:20 Urine Nitrite Negative (Negative) 07/03/23 11:20 Ur Leukocyte Esterase Negative (Negative) 07/03/23 11:20 Urine WBC (Auto) 1-5 /hpf (0-5) 07/03/23 11:20 Urine RBC (Auto) 0-4 /hpf (0-4) 07/03/23 11:20 U Hyaline Cast (Auto) 1-5 /lpf (0-5) 07/03/23 11:20 U Epithel Cells (Auto) 20-30 /lpf (0-5) H 07/03/23 11:20 Urine Bacteria (Auto) Negative (Negative) 07/03/23 11:20
--- NOTE | 2023-07-09 11:36 | Hospitalist Progress Note ---
Date of Service July 09, 2023 Assessment & Plan (1) Nausea, vomiting and diarrhea: Plan: 52 F with chronic, persistent nausea/vomiting, abdominal pain, and diarrhea x 6 months, who presents to the emergency room with profound weakness 2/2 poor oral intake. Admitted to the hospital for management of hypokalemia, evaluation of persistent abdominal pain/nausea. Nausea/Vomiting/Diarrhea/Abdominal Pain -Chronic, persistent; unknown etiology -Etiology unclear. Based on HPI, physical exam suspect current symptomatology is largely anxiety/stress driven. However, initial trigger is likely gastrointestinal in origin. Therefore, cannot exclude dysmotility, inflammatory causes like severe celiac, IBS, or endocrine. Lower suspicion for functional dyspepsia given diarrhea. Suspect trigger points may be partially responsible. -Also considering, though not at this time, endocrinologic/neoplastic causes: Pancreatic insufficiency, neuroendocrine/pancreatic tumor. Will consider if initial workup noncontributory. -Initiated expanded diagnostic workup: Stool panel negative, a.m. cortisol mildly elevated, iron profile normal, ESR/CRP negative. Remaining workup results pending (see below): -Completed bedside trigger point injection 07/04 immediately proximal to umbilicus. * fecal calprotectin and fecal fat pending * stool panel, IgA TTG neg * US gallbladder WNL * Pain control regimen: Continue home Percocet as needed * IV Zofran 4 mg q6hr, IV Phenergan 5 mg q6hr, IV prochlorperazine 5 mg q6hr PRN as needed for nausea * Voltaren gel as needed for trigger point pain * Awaiting endoscopy/colonoscopy today Anxiety/Depression -Chronic * Continue home fluoxetine, buspirone, clonazepam Hypomagnesemia- resolved - replete PRN; no signs of refeeding syndrome Hypokalemia- resolved -K 2.9 on admission. Mg 1.8. S/p repletion x 10 mEq K in the ED and 40 mEq upon admission -Lethargy, weakness, but no focal deficits or evidence of ambulatory dysfunction on exam. -No arrhythmias on EKG Code: Full Dispo: med/surg FEN/GI: LR @maintenance rate. Regular as tolerated DVT Prophylaxis: Lovenox 40 mg q24h Consults: GI (2) Acute hypokalemia: (3) Depression: (4) Hypomagnesemia: Admission and Anticipated Discharge Date Admission Date: July 04, 2023 Supervising Physician Co-Signing Physician Notes ATTESTATION I also saw the patient and confirmed banks portions of the history and exam. I agree with the impression and plan in the resident documentation, and as summarized below. Some very mild nausea this morning; awaiting EGD/colonoscopy scheduled for later today. EXAM 128/76, 50, 16, 37.6, 1% on room air Alert and oriented Respirations nonlabored Heart regular DATA Labs Hemoglobin 13.0 Sodium 140, potassium 4.0, BUN 8, creatinine 0.78 Imaging Gallbladder ultrasound completed 07/08/2023 shows no significant abnormality IMPRESSION & PLAN Nausea, vomiting with weight loss Epigastric abdominal pain Anxiety EGD/colonoscopy today Difficult to tell what is related to anxiety/depression, or if GI etiology is leading to increased anxiety Previous workup has shown normal inflammatory markers; fecal calprotectin levels pending, but IBD seems less likely Could consider HIDA to exclude gallbladder dysfunction/hyperkinetic gallbladder Additional per resident documentation Subjective 52 F with chronic, persistent nausea/vomiting, abdominal pain, and diarrhea x 6 months, who presents to the emergency room with profound weakness 2/2 poor oral intake. Admitted to the hospital for management of hypokalemia, evaluation of persistent abdominal pain/nausea. Pt doing the same this morning. Awaiting her colonoscopy/endoscopy today. Review of Systems Review of Systems: As per HPI Physical Exam Physical Exam: Constitutional: ill appearing, no acute distress HEENT: normocephalic, no conjunctival injection CV: clinically well perfused Respiratory: no increased work of breathing MSK: no gross deformities noted Skin: warm, dry, no rashes Neuro: alert, oriented, no FND noted Psych: mood and affect congruent Results & Data Results & Data Vital Signs (Past 12 Hours) Vital Signs Temp Pulse Resp BP Pulse Ox O2 Del Method 07/09/23 10:27 37.6 C H 57 L 16 123/77 100 Room Air 07/09/23 07:43 36.6 C 59 L 16 115/74 97 Room Air Resident Activity Tracking Resident Involvement: Resident Care Provided Care Provided: Adult Hospital Medicine (3) Depression Active/Remission status: currently active Depression Type: major depressive disorder Major depression episode severity: severe Major depression recurrence: unspecified whether recurrent Psychotic features: without psychotic features Qualified Code(s): F32.2 - Major depressive disorder, single episode, severe without psychotic features
--- NOTE | 2023-07-09 11:49 | GI REPORT ---
Patient Name: Radha Curtis Procedure Date: 07/09/2023 11:18 AM Date of : 1970 Admit Type: Inpatient Age: 52 Gender: Female Attending MD: Jerrod Luna MD, Procedure: Upper GI endoscopy Providers: Jerrod Luna MD Referring MD: Referred Self Indications: Diarrhea, Nausea with vomiting, Weight loss Medicines: Monitored Anesthesia Care Complications: No immediate complications. Estimated blood loss: None. Estimated Blood Loss: Estimated blood loss: none. Procedure: Pre-Anesthesia Assessment: - Prior Anticoagulants: The patient has taken no anticoagulant or antiplatelet agents. - ASA Grade Assessment: III - A patient with severe systemic disease. After obtaining informed consent, the endoscope was passed under direct vision. Throughout the procedure, the patient's blood pressure, pulse, and oxygen saturations were monitored continuously. The Colonoscope was introduced through the mouth, and advanced to the second part of duodenum. The upper GI endoscopy was accomplished without difficulty. The patient tolerated the procedure well. Findings: The examined esophagus was normal. A small hiatal hernia was present. Diffuse mild inflammation characterized by erythema was found in the stomach. Biopsies were taken with a cold forceps for Helicobacter pylori testing. Estimated blood loss: none. The duodenal bulb and second portion of the duodenum were normal. Biopsies for histology were taken with a cold forceps for evaluation of celiac disease. Estimated blood loss: none. Impression: - Normal esophagus. - Small hiatal hernia. - Gastritis. Biopsied. - Normal duodenal bulb and second portion of the duodenum. Biopsied. Recommendation: - [facility]. - Resume previous diet today. - Await pathology results. Jerrod Luna MD 07/09/2023 11:48:44 AM This report has been signed electronically. Note Initiated On: 07/09/2023 11:18 AM Number of Addenda: 0 I attest to the content of the Intraoperative Record and orders documented therein, exceptions below {[id number]}
--- NOTE | 2023-07-09 11:54 | GI REPORT ---
Patient Name: Radha Curtis Procedure Date: 07/09/2023 11:16 AM Date of : 1970 Admit Type: Inpatient Age: 52 Gender: Female Attending MD: Jerrod Luna MD, Procedure: Colonoscopy Providers: Jerrod Luna MD Referring MD: Referred Self Indications: Clinically significant diarrhea of unexplained origin, Weight loss Medicines: Monitored Anesthesia Care Complications: No immediate complications. Estimated blood loss: None. Estimated Blood Loss: Estimated blood loss: none. Procedure: Pre-Anesthesia Assessment: - Prior Anticoagulants: The patient has taken no anticoagulant or antiplatelet agents. - ASA Grade Assessment: III - A patient with severe systemic disease. After I obtained informed consent, the scope was passed under direct vision. Throughout the procedure, the patient's blood pressure, pulse, and oxygen saturations were monitored continuously. The Colonoscope was introduced through the anus and advanced to the cecum, identified by appendiceal orifice and ileocecal valve. The colonoscopy was performed without difficulty. The patient tolerated the procedure well. The quality of the bowel preparation was poor. Findings: A moderate amount of semi-liquid semi-solid stool was found in the descending colon, in the transverse colon, in the ascending colon and in the cecum, interfering with visualization. Estimated blood loss: none. The colon (entire examined portion) appeared normal. Biopsies were taken with a cold forceps for histology. Estimated blood loss: none. stool aspirate sent for testing. Impression: - Preparation of the colon was poor. - Stool in the descending colon, in the transverse colon, in the ascending colon and in the cecum. - The entire examined colon is normal. Biopsied. Recommendation: - Resume previous diet today. - Await pathology results. - Return patient to [facility] for [facility] care. - Repeat colonoscopy in 1 year because the bowel preparation was suboptimal. use extended prep. Jerrod Luna MD 07/09/2023 11:54:24 AM This report has been signed electronically. Note Initiated On: 07/09/2023 11:16 AM Number of Addenda: 0 I attest to the content of the Intraoperative Record and orders documented therein, exceptions below {[id number]}
--- NOTE | 2023-07-09 14:22 | Anesthesiology Progress Note ---
Date of Service July 09, 2023 Anesthesia Post Procedure Vital Signs Vital Signs: Temp Pulse Resp BP BP Pulse Ox O2 Del Method 07/09/23 12:17 128/76 07/09/23 12:17 50 L 16 119/75 100 Room Air 07/09/23 12:03 49 L 16 112/59 L 99 Room Air 07/09/23 11:48 53 L 16 97/58 L 100 Room Air 07/09/23 10:27 37.6 C H 57 L 16 123/77 100 Room Air 07/09/23 07:43 36.6 C 59 L 16 115/74 97 Room Air 07/08/23 19:44 36.4 C L 59 L 16 121/74 96 Room Air 07/08/23 14:27 36.6 C 56 L 16 95/58 L 98 Room Air Pain Intensity Abdomen: Pain Intensity: 5 Transfer of Care Handoff Completed per policy Notes Mental Status: alert / awake / arousable Patient Amnestic to Procedure: Yes Nausea / Vomiting: adequately controlled Pain: adequately controlled Airway Patency, RR, SpO2: stable & adequate BP & HR: stable & adequate Hydration State: stable & adequate Anesthetic Complications: no major complications apparent and Pt Satisfied with anesthetic care
[2023-07-10] MEDS: PANTOprazole 40 MG TAB PO SCH (12:05)
--- NOTE | 2023-07-10 12:24 | Hospitalist Progress Note ---
Date of Service July 10, 2023 Assessment & Plan (1) Nausea, vomiting and diarrhea: Plan: 52 F with chronic, persistent nausea/vomiting, abdominal pain, and diarrhea x 6 months, who presents to the emergency room with profound weakness 2/2 poor oral intake. Admitted to the hospital for management of hypokalemia, evaluation of persistent abdominal pain/nausea. Nausea/Vomiting/Diarrhea/Abdominal Pain -Chronic, persistent; unknown etiology -Etiology unclear. Based on HPI, physical exam suspect current symptomatology is largely anxiety/stress driven. However, initial trigger is likely gastrointestinal in origin. Therefore, cannot exclude dysmotility, inflammatory causes like severe celiac, IBS, or endocrine. Lower suspicion for functional dyspepsia given diarrhea. Suspect trigger points may be partially responsible. -Also considering, though not at this time, endocrinologic/neoplastic causes: Pancreatic insufficiency, neuroendocrine/pancreatic tumor. Will consider if initial workup noncontributory. -Initiated expanded diagnostic workup: Stool panel negative, a.m. cortisol mildly elevated, iron profile normal, ESR/CRP negative. Remaining workup results pending (see below): -Completed bedside trigger point injection 07/04 immediately proximal to umbilicus. * fecal calprotectin and fecal fat pending * stool panel, IgA TTG neg * US gallbladder WNL; will order HIDA scan * Pain control regimen: Continue home Percocet as needed * IV Zofran 4 mg q6hr, IV Phenergan 5 mg q6hr, IV prochlorperazine 5 mg q6hr PRN as needed for nausea- hold antiemetics after midnight in anticipation for HIDA scan * pantoprazole 40 mg daily and famotidine 20 mg BID added * Voltaren gel as needed for trigger point pain * Endoscopy/colonoscopy showed gastritis and biopsies taken Anxiety/Depression -Chronic * Continue home fluoxetine, buspirone, clonazepam Hypomagnesemia- resolved - replete PRN; no signs of refeeding syndrome Hypokalemia- resolved -K 2.9 on admission. Mg 1.8. S/p repletion x 10 mEq K in the ED and 40 mEq upon admission -Lethargy, weakness, but no focal deficits or evidence of ambulatory dysfunction on exam. -No arrhythmias on EKG Code: Full Dispo: med/surg FEN/GI: LR @maintenance rate. Regular as tolerated; NPO at midnight anticipating HIDA DVT Prophylaxis: Lovenox 40 mg q24h Consults: GI (2) Acute hypokalemia: (3) Depression: (4) Hypomagnesemia: Admission and Anticipated Discharge Date Admission Date: July 04, 2023 Supervising Physician Co-Signing Physician Notes ATTESTATION I also saw the patient and confirmed banks portions of the history and exam. I agree with the impression and plan in the resident documentation, and as s ummarized below. Patient had 1 bout of emesis prior to breakfast; she took Zofran and was able to tolerate a pancake without emesis, though she still noted some nausea when we saw her midmorning. EXAM 94/54, 51, 16, 35.6, 90% on room air Alert and oriented; she looks tired Respirations nonlabored Heart regular DATA Labs Hemoglobin 13.0 BMP is unremarkable with preserved renal function Imaging Colonoscopy was unremarkable, but poor prep EGD demonstrated normal esophagus, small hiatal hernia, diffuse mild inflammation with erythema in the stomach; biopsies taken. IMPRESSION & PLAN Nausea, vomiting with weight loss Epigastric abdominal pain Anxiety Add acid suppression, PPI and H2 josé miguel; doubt this was the primary cause of her symptoms, more likely the result of prolonged nausea and emesis HIDA scan tomorrow to exclude gallbladder dysfunction/hyperkinetic gallbladder Difficult to tell what is related to anxiety/depression, or if GI etiology is leading to increased anxiety Continue symptomatic management with Zofran Will likely need outpatient GI follow-up Additional per resident documentation Subjective 52 F with chronic, persistent nausea/vomiting, abdominal pain, and diarrhea x 6 months, who presents to the emergency room with profound weakness 2/2 poor oral intake. Admitted to the hospital for management of hypokalemia, evaluation of persistent abdominal pain/nausea. Pt not doing well this AM. She vomited and then took zofran prior to trying to eat breakfast. She was able to get 1 pancake down for breakfast but she has been groggy all morning. Review of Systems Review of Systems: As per HPI Physical Exam Physical Exam: Constitutional: ill appearing, no acute distress HEENT: normocephalic, no conjunctival injection CV: clinically well perfused Respiratory: no increased work of breathing MSK: no gross deformities noted Skin: warm, dry, no rashes Neuro: alert, oriented, no FND noted Psych: mood and affect congruent Results & Data Results & Data Vital Signs (Past 12 Hours) Vital Signs Temp Pulse Resp BP Pulse Ox O2 Del Method 07/10/23 07:43 36.7 C 58 L 16 127/84 100 Room Air Resident Activity Tracking Resident Involvement: Resident Care Provided Care Provided: Adult Hospital Medicine (3) Depression Active/Remission status: currently active Depression Type: major depressive disorder Major depression episode severity: severe Major depression recurrence: unspecified whether recurrent Psychotic features: without psychotic features Qualified Code(s): F32.2 - Major depressive disorder, single episode, severe without psychotic features
[2023-07-10] MEDS: FAMOTIDINE 20 MG TAB PO SCH (20:57)
[2023-07-11 07:40] LABS: Hematocrit (blood only) 39.3 % (37.0-47.0); Hemoglobin 13.1 g/dl (12.0-16.0); Mean Corpuscular Hemoglobin 31.6 pg (25.0-34.0); Mean Corpuscular Hgb Conc 33.3 g/dL (32.0-36.0); Mean Corpuscular Volume 94.7 fL (80.0-100.0); Mean Platelet Volume 9.5 fL (9.4-12.4); Platelet Count 199 K/uL (130-400); RDW Coefficient of Variation 14.6 % (11.5-14.5); Red Blood Count 4.15 M/uL (4.20-5.40); White Blood Count 5.42 K/ul (4.8-10.8)
[2023-07-11 07:51] LABS: Calcium 8.5 mg/dl (8.6-10.3); Creatinine Clr Calc Pharmacy 48.9 ml/min; Est GFR (African American) 82.9 ml/min; Est GFR (Non-African American) 71.5 ml/min; Phosphorus 3.5 mg/dl (2.5-4.9)
--- NOTE | 2023-07-11 10:37 | Nuclear Medicine Report ---
NUCLEAR MEDICINE HEPATOBILIARY SCAN HISTORY: nausea, vomiting COMPARISON: Abdominal ultrasound 07/08/2023. TECHNIQUE: Immediately following the intravenous administration of 4.5 mCi Tc-99m Choletec, dynamic a nterior abdominal imaging was performed. FINDINGS: Uniform hepatic tracer accumulation is shown. Prompt intrahepatic biliary excretion is seen. The gall bladder, common bile duct, and small bowel are all visualized by 45 minutes. This appearance represen ts the normal sequence of biliary excretion. IMPRESSION: 1. No evidence for cystic duct obstruction. ACT 112: Negative or not required by law. Electronically signed by: Satya Webber M.D. 07/11/2023 10:34 AM
[2023-07-11 11:45] LABS: Magnesium 1.7 mg/dl (1.7-2.4)
--- NOTE | 2023-07-11 13:07 | Hospitalist Progress Note ---
Date of Service July 11, 2023 Assessment & Plan (1) Nausea, vomiting and diarrhea: Plan: 52 F with chronic, persistent nausea/vomiting, abdominal pain, and diarrhea x 6 months, who presents to the emergency room with profound weakness 2/2 poor oral intake. Admitted to the hospital for management of hypokalemia, evaluation of persistent abdominal pain/nausea. Nausea/Vomiting/Diarrhea/Abdominal Pain -Chronic, persistent; unknown etiology -Etiology unclear. Based on HPI, physical exam suspect current symptomatology is largely anxiety/stress driven. However, initial trigger is likely gastrointestinal in origin. Therefore, cannot exclude dysmotility, inflammatory causes like severe celiac, IBS, or endocrine. Lower suspicion for functional dyspepsia given diarrhea. Suspect trigger points may be partially responsible. -Also considering, though not at this time, endocrinologic/neoplastic causes: Pancreatic insufficiency, neuroendocrine/pancreatic tumor. Will consider if initial workup noncontributory. -Initiated expanded diagnostic workup: Stool panel negative, a.m. cortisol mildly elevated, iron profile normal, ESR/CRP negative. Remaining workup results pending (see below): -Completed bedside trigger point injection 07/04 immediately proximal to umbilicus. * fecal calprotectin and fecal fat pending * stool panel, IgA TTG neg * US gallbladder WNL; HIDA scan WNL- may consider repeat with EF as outpatient; would also plan for outpatient gastric emptying study * Pain control regimen: Continue home Percocet as needed * IV Zofran 4 mg q6hr, IV Phenergan 5 mg q6hr, IV prochlorperazine 5 mg q6hr PRN as needed for nausea * continue pantoprazole 40 mg daily and famotidine 20 mg BID * Voltaren gel as needed for trigger point pain * Endoscopy/colonoscopy showed gastritis Anxiety/Depression -Chronic * Continue home fluoxetine, buspirone, clonazepam Hypomagnesemia- resolved - replete PRN; no signs of refeeding syndrome Hypokalemia- resolved -K 2.9 on admission. Mg 1.8. S/p repletion x 10 mEq K in the ED and 40 mEq upon admission -Lethargy, weakness, but no focal deficits or evidence of ambulatory dysfunction on exam. -No arrhythmias on EKG Code: Full Dispo: med/surg FEN/GI: LR @maintenance rate. Regular as tolerated DVT Prophylaxis: Lovenox 40 mg q24h Consults: GI (2) Acute hypokalemia: (3) Depression: (4) Hypomagnesemia: Admission and Anticipated Discharge Date Admission Date: July 04, 2023 Supervising Physician Co-Signing Physician Notes ATTESTATION I also saw the patient and confirmed banks portions of the history and exam. I agree with the impression and plan in the resident documentation, and as summarized below. Tolerating small amount of lunch. Feels better with the Zofran pretty much on a scheduled basis. EXAM 93/53, 58, 16, 36.6, 90% on room air Alert and oriented; she looks a little more energetic today compared to yesterday Respirations nonlabored Heart regular DATA Labs Hemoglobin 13.1 Sodium 139, potassium 4.0, BUN 10, creatinine 0.91 Imaging HIDA scan unremarkable; no EF ordered IMPRESSION & PLAN Nausea, vomiting with weight loss Epigastric abdominal pain Anxiety Add acid suppression, PPI and H2 josé miguel; doubt this was the primary cause of her symptoms, more likely the result of prolonged nausea and emesis HIDA scan normal, however, no EF provided. If continued symptoms, could consider repeat study with EF to exclude hypokinesis of the gallbladder. Also discussed consideration of gastric emptying study as outpatient. Difficult to tell what is related to anxiety/depression, or if GI etiology is leading to increased anxiety Continue symptomatic management with Zofran Will likely need outpatient GI follow-up Additional per resident documentation Subjective 52 F with chronic, persistent nausea/vomiting, abdominal pain, and diarrhea x 6 months, who presents to the emergency room with profound weakness 2/2 poor oral intake. Admitted to the hospital for management of hypokalemia, evaluation of persistent abdominal pain/nausea. Pt not doing well this AM in terms of nausea/abdominal pain because she was unable to have any medication prior to her HIDA scan. Otherwise, no new concerns. Review of Systems Review of Systems: As per HPI Physical Exam Physical Exam: Constitutional: well appearing, no acute distress HEENT: normocephalic, no conjunctival injection CV: clinically well perfused Respiratory: no increased work of breathing MSK: no gross deformities noted Skin: warm, dry, no rashes Neuro: alert, oriented, no FND noted Psych: mood and affect congruent Results & Data Results & Data Vital Signs (Past 12 Hours) Vital Signs Temp Pulse Resp BP Pulse Ox O2 Del Method 07/11/23 07:38 36.7 C 60 16 107/67 99 Room Air Resident Activity Tracking Resident Involvement: Resident Care Provided Care Provided: Adult Hospital Medicine (3) Depression Active/Remission status: currently active Depression Type: major depressive disorder Major depression episode severity: severe Major depression recurrence: unspecified whether recurrent Psychotic features: without psychotic features Qualified Code(s): F32.2 - Major depressive disorder, single episode, severe without psychotic features
[2023-07-12] MEDS: PROCHLORPERAZINE 5 MG in SYRINGE 4 ML IV PRN (11:09)
--- NOTE | 2023-07-12 14:03 | Hospitalist Progress Note ---
Date of Service July 12, 2023 Assessment & Plan (1) Nausea, vomiting and diarrhea: Plan: 52 F with chronic, persistent nausea/vomiting, abdominal pain, and diarrhea x 6 months, who presents to the emergency room with profound weakness 2/2 poor oral intake. Admitted to the hospital for management of hypokalemia, evaluation of persistent abdominal pain/nausea. Nausea/Vomiting/Diarrhea/Abdominal Pain -Chronic, persistent; unknown etiology -Etiology unclear. Based on HPI, physical exam suspect current symptomatology is largely anxiety/stress driven. However, initial trigger is likely gastrointestinal in origin. Therefore, cannot exclude dysmotility, inflammatory causes like severe celiac, IBS, or endocrine. Lower suspicion for functional dyspepsia given diarrhea. Suspect trigger points may be partially responsible. -Also considering, though not at this time, endocrinologic/neoplastic causes: Pancreatic insufficiency, neuroendocrine/pancreatic tumor. Will consider if initial workup noncontributory. -Initiated expanded diagnostic workup: Stool panel negative, a.m. cortisol mildly elevated, iron profile normal, ESR/CRP negative. Remaining workup results pending (see below): -Completed bedside trigger point injection 07/04 immediately proximal to umbilicus. -Endoscopy showed gastritis but was otherwise nondiagnostic. -HIDA scan negative for gallbladder abnormalities, though scan performed without EF. May repeat in outpatient setting. -Gastric emptying study tentatively scheduled to be performed in outpatient setting. GI to schedule. * fecal calprotectin and fecal fat pending * stool panel, IgA TTG neg * US gallbladder WNL; HIDA scan WNL- may consider repeat with EF as outpatient; would also plan for outpatient gastric emptying study * Pain control regimen: Continue home Percocet as needed * IV Zofran 4 mg q6hr, IV Phenergan 5 mg q6hr, IV prochlorperazine 5 mg q6hr PRN as needed for nausea * continue pantoprazole 40 mg daily and famotidine 20 mg BID * Voltaren gel as needed for trigger point pain Gastritis -Unclear if acute or chronic. Discovered on upper GI endoscopy. * Protonix p.o. 40 mg daily * Famotidine p.o. 20 mg twice daily Anxiety/Depression -Chronic * Continue home fluoxetine, buspirone, clonazepam Hypomagnesemia- resolved - replete PRN; no signs of refeeding syndrome Hypokalemia- resolved -K 2.9 on admission. Mg 1.8. S/p repletion x 10 mEq K in the ED and 40 mEq upon admission -Lethargy, weakness, but no focal deficits or evidence of ambulatory dysfunction on exam. -No arrhythmias on EKG Code: Full Dispo: med/surg. Tentative discharge 07/12 FEN/GI: LR @maintenance rate. Regular as tolerated DVT Prophylaxis: Lovenox 40 mg q24h Consults: GI (2) Acute hypokalemia: (3) Depression: (4) Hypomagnesemia: Admission and Anticipated Discharge Date Admission Date: July 04, 2023 Supervising Physician Co-Signing Physician Notes I personally examined the patient and verified banks points of history and exam, discussed case, and agree with decision making and plan documented by Dr. Bassett. Subjective Patient feels worse today. She reports nausea refractory to p.o. Zofran. Still reporting constant, low-grade abdominal pain, though. Otherwise doing fine. Review of Systems Review of Systems: All systems reviewed & are unremarkable except as noted in HPI & below Physical Exam Physical Exam: General: no acute distress Resp: good inspiratory effort, no labored breathing HEENT: conjunctivae clear, no audible congestion, no swelling noted face or lips Skin: skin appears dry, normal coloration, no rash visible on exposed skin areas Neuro: alert and oriented x3, no focal deficits appreciated Psych: euthymic affect, pleasant and interactive, logical thought process Results & Data Results & Data Vital Signs (Past 12 Hours) Vital Signs Temp Pulse Resp BP Pulse Ox O2 Del Method 07/12/23 07:59 36.5 C 61 16 104/58 L 98 Room Air Resident Activity Tracking Resident Involvement: Resident Care Provided Care Provided: Adult Hospital Medicine (3) Depression Active/Remission status: currently active Depression Type: major depressive disorder Major depression episode severity: severe Major depression recurrence: unspecified whether recurrent Psychotic features: without psychotic features Qualified Code(s): F32.2 - Major depressive disorder, single episode, severe without psychotic features
--- NOTE | 2023-07-13 06:55 | Hospitalist Progress Note ---
Date of Service July 13, 2023 Assessment & Plan (1) Nausea, vomiting and diarrhea: Plan: 52 F with chronic, persistent nausea/vomiting, abdominal pain, and diarrhea x 6 months, who presents to the emergency room with profound weakness 2/2 poor oral intake. Admitted to the hospital for management of hypokalemia, evaluation of persistent abdominal pain/nausea. Nausea/Vomiting/Diarrhea/Abdominal Pain -Chronic, persistent; unknown etiology -Etiology unclear. Based on HPI, physical exam suspect current symptomatology is largely anxiety/stress driven. However, initial trigger is likely gastrointestinal in origin. Therefore, cannot exclude dysmotility, inflammatory causes like severe celiac, IBS, or endocrine. Lower suspicion for functional dyspepsia given diarrhea. Suspect trigger points may be partially responsible. -Also considering, though not at this time, endocrinologic/neoplastic causes: Pancreatic insufficiency, neuroendocrine/pancreatic tumor. Will consider if initial workup noncontributory. -Initiated expanded diagnostic workup: Stool panel negative, a.m. cortisol mildly elevated, iron profile normal, ESR/CRP negative. Remaining workup results pending (see below): -Completed bedside trigger point injection 07/04 immediately proximal to umbilicus. -Endoscopy showed gastritis but was otherwise nondiagnostic. -HIDA scan negative for gallbladder abnormalities, though scan performed without EF. May repeat in outpatient setting. -Gastric emptying study tentatively scheduled to be performed in outpatient setting. GI to schedule. * fecal calprotectin and fecal fat pending * stool panel, IgA TTG neg * US gallbladder WNL; HIDA scan WNL- may consider repeat with EF as outpatient; would also plan for outpatient gastric emptying study * Pain control regimen: Continue home Percocet as needed * switched IV anti-emetics to oral zofran and compazine in anticipation of going home * continue pantoprazole 40 mg daily and famotidine 20 mg BID * Voltaren gel as needed for trigger point pain Gastritis -Unclear if acute or chronic. Discovered on upper GI endoscopy. * Protonix p.o. 40 mg daily * Famotidine p.o. 20 mg twice daily Anxiety/Depression -Chronic * Continue home fluoxetine, buspirone, clonazepam Hypomagnesemia- resolved - replete PRN; no signs of refeeding syndrome Hypokalemia- resolved -K 2.9 on admission. Mg 1.8. S/p repletion x 10 mEq K in the ED and 40 mEq upon admission -Lethargy, weakness, but no focal deficits or evidence of ambulatory dysfunction on exam. -No arrhythmias on EKG Code: Full Dispo: med/surg. Tentative discharge 07/12 FEN/GI: LR @maintenance rate. Regular as tolerated DVT Prophylaxis: Lovenox 40 mg q24h Consults: GI (2) Acute hypokalemia: (3) Depression: (4) Hypomagnesemia: Admission and Anticipated Discharge Date Admission Date: July 04, 2023 Supervising Physician Co-Signing Physician Notes I personally examined the patient and verified banks points of history and exam, discussed case, and agree with decision making and plan documented by Dr. Guerrero. Patient with continued nausea and abdominal pain today. We discussed at length her 10 months of symptoms which she described as "extreme painful nausea." Discussed that we need to trial p.o. regimen that she can tolerate. Will trial Compazine p.o. for nausea. Patient does not have a medical cannabis card at present but has used cannabinoids in past, mostly inhalation. Discussed she would benefit from consultation with pharmacist at dispensary if she would like to pursue this approach for guidance on routes of administration and dosage. Encourage continued efforts to maintain p.o. hydration and nutrition. Subjective Patient seen at bedside, still feeling some nausea abd pain states she required zofran and percocet this morning in order to tolerate breakfast. Patient states her abd pain nausea weight loss started 10 months ago, has had ongoing stress anxiety, states she psych meds have been changed multiple times currently managed by Dr. Brush last meds updated 6 weeks ago states she's doing well on the regime, states she previously has not had work for a physical cause for her persistent symptoms. Patient has not noted relation between type of food and worsened abd pain, states some days are better than others. Has similar symptoms btwn solid and liquid foods, including Boost. Patient considered getting a psych consult in the hospital, however understands it may not be as helpful. Understands she has outpatient gastric emptying study scheduled, we may not be able to improve her symptoms while she is in the hospital. Physical Exam Constitutional: well developed and well nourished ENMT: external ear and nose normal, oropharynx normal Respiratory: normal respiratory effort, lungs clear to auscultation Cardiovascular: RRR, no murmur, no edema Gastrointestinal (Abdomen): Inspection/Auscultation: abdomen normal to inspection Percussion/Palpation: + abdomen tender (epigastric, umbilical region) and abdomen soft Skin: no rashes, warm and dry Results & Data Results & Data Vital Signs (Past 12 Hours) Vital Signs Temp Pulse Resp BP Pulse Ox O2 Del Method 07/12/23 21:24 36.6 C 64 16 104/62 98 Room Air 07/12/23 19:50 Room Air Resident Activity Tracking Resident Involvement: Resident Care Provided Care Provided: Adult Hospital Medicine (3) Depression Active/Remission status: currently active Depression Type: major depressive disorder Major depression episode severity: severe Major depression recurrence: unspecified whether recurrent Psychotic features: without psychotic features Qualified Code(s): F32.2 - Major depressive disorder, single episode, severe without psychotic features
[2023-07-13] MEDS: PROCHLORPERAZINE MALEATE 10 MG TAB PO PRN (14:36)
[2023-07-13] MEDS: ONDANSETRON 8MG OD TAB PO PRN (16:24)
[2023-07-13] MEDS ORDERED: diphenhydrAMINE Capsule 25 MG CAP PO PRN (16:34)
--- NOTE | 2023-07-14 07:26 | Discharge Summary ---
Date of Service July 14, 2023 Admission HPI Per Admitting Provider Radha is a 52-year-old woman with a past medical history of migraines, anxiety, depression, and a history of as of yet undiagnosed persistent nausea/vomiting and abdominal pain since September 2022, who presented to the emergency room for profound weakness and persistent vomiting stemming from the aforementioned persistent abdominal pain. Patient has previously followed with gastroenterology, psychiatry, and rheumatology in advance for unsuccessful attempt to diagnose her condition. She presented to the emergency room despite being tentatively scheduled for an upper and lower endoscopy next week, because her symptoms had worsened to the point where she is no longer able to tolerate any foods and liquids at this point. She also rates abdominal pain/discomfort at 7/10 in the emergency room. She denies dysuria, urinary frequency, hematuria, dysphagia, hematochezia, feculent emesis, hematemesis, alcohol consumption, cannabis use, or AMS. ROS + weight loss (30+ lbs), and stress. No family history (patient was adopted) On arrival, vital signs were almost entirely within normal limits and stable (EKGsinus bradycardia). Lab workup revealed only significant hypokalemia (K+ 2.9) rest of CMP (lipase, AST/ALT, bilirubin) was normal. CBC, Mg, PT/INR were also all normal. CT abdomen pelvis with contrast was unremarkable, and was negative for bowel obstruction. She received IV potassium repletion, IV Toradol for pain, and IV maintenance LR. When asked to characterize her symptoms on admission, she specifically describes a sore, "hungry-like" midline abdominal pain both alleviated and aggravated by food (pattern is random and neither symptom is tied to a particular food). Abdominal pain is also worsened by lying down, and stress usually on awaking. Her nausea is constant, with episodes of emesis triggered inconsistently by eating or drinking. She reports having 2-3 diarrheal episodes daily x6 months. Discharge Exam Constitutional well developed and well nourished ENMT external ear and nose normal, oropharynx normal Respiratory normal respiratory effort, lungs clear to auscultation Cardiovascular RRR, no murmur, no edema Gastrointestinal (Abdomen) Inspection/Auscultation: abdomen normal to inspection Percussion/Palpation: + abdomen tender (epigastric, umbilical region) and abdomen soft Skin no rashes, warm and dry Discharge Data Allergies Allergy/AdvReac Type Severity Reaction Status Date / Time gabapentin Allergy Severe "EVERY Verified 07/09/23 10:25 SIDE AFFECT YOU CAN GET WITH THIS DRUG" pregabalin Allergy Severe "EVERY Verified 07/09/23 10:25 SIDE AFFECT YOU CAN GET WITH THIS DRUG" trazodone AdvReac Unknown Gastrointestinal Verified 07/09/23 10:26 Upset Consultations 07/03/23 09:09 ED Decision to Admit Stat 07/03/23 10:53 Consult Gastroenterology Routine Procedures Performed Operation Date: 07/09/23 10:15 Actual Procedures p EGD Biopsy Cytology - Jerrod Luna MD s Colonoscopy Biopsy Cytology - Jerrod Luna MD Ordered Studies 07/03/23 07:23 CT abd pelvis IV con only Stat 07/08/23 10:20 US gallbladder Routine Hospital Course (1) Nausea, vomiting and diarrhea: 52 F with chronic, persistent nausea/vomiting, abdominal pain, and diarrhea x 6 months, who presents to the emergency room with profound weakness 2/2 poor oral intake. Admitted to the hospital for management of hypokalemia, evaluation of persistent abdominal pain/nausea. Nausea/Vomiting/Diarrhea/Abdominal Pain -Chronic, persistent; unknown etiology -Etiology unclear. Based on HPI, physical exam suspect current symptomatology is largely anxiety/stress driven. However, initial trigger is likely gastrointestinal in origin. Therefore, cannot exclude dysmotility, inflammatory causes like severe celiac, IBS, or endocrine. Lower suspicion for functional dyspepsia given diarrhea. Suspect trigger points may be partially responsible. -Also considering, though not at this time, endocrinologic/neoplastic causes: Pa ncreatic insufficiency, neuroendocrine/pancreatic tumor. Will consider if initial workup noncontributory. -Initiated expanded diagnostic workup: Stool panel negative, a.m. cortisol mildly elevated, iron profile normal, ESR/CRP negative. Remaining workup results pending (see below): -Completed bedside trigger point injection 07/04 immediately proximal to umbilicus. -Endoscopy showed gastritis but was otherwise nondiagnostic. -HIDA scan negative for gallbladder abnormalities, though scan performed without EF. May repeat in outpatient setting. -Gastric emptying study tentatively scheduled to be performed in outpatient setting. GI to schedule. * fecal calprotectin and fecal fat pending * stool panel, IgA TTG neg * US gallbladder WNL; HIDA scan WNL- may consider repeat with EF as outpatient; would also plan for outpatient gastric emptying study * Pain control regimen: Continue home Percocet as needed * switched IV anti-emetics to oral zofran and compazine in anticipation of going home * continue pantoprazole 40 mg daily and famotidine 20 mg BID * Voltaren gel as needed for trigger point pain Gastritis -Unclear if acute or chronic. Discovered on upper GI endoscopy. * Protonix p.o. 40 mg daily * Famotidine p.o. 20 mg twice daily Anxiety/Depression -Chronic * Continue home fluoxetine, buspirone, clonazepam Hypomagnesemia- resolved - replete PRN; no signs of refeeding syndrome Hypokalemia- resolved -K 2.9 on admission. Mg 1.8. S/p repletion x 10 mEq K in the ED and 40 mEq upon admission -Lethargy, weakness, but no focal deficits or evidence of ambulatory dysfunction on exam. -No arrhythmias on EKG Code: Full Dispo: med/surg. Tentative discharge 07/12 FEN/GI: LR @maintenance rate. Regular as tolerated DVT Prophylaxis: Lovenox 40 mg q24h Consults: GI (2) Acute hypokalemia: (3) Depression: (4) Hypomagnesemia: Discharge Plan Discharge Items Patient Disposition: Home - Self-Care Reason For Visit: INTRACTABLE VOMITING Discharge Diagnosis: Intractable vomiting of unknown etiology, weight loss Activity: Per Instructions section Non-emergency contact: Primary Care Provider Call non-emergency contact if: you have any medication questions and your symptoms worsen Follow-up/Referrals: Micah Solano DO [Physician] - Ying Brush DO [Primary Care Provider] - Diet: Regular Addtl Attending Provider Instructions: Dear Radha, You came to the hospital because of your intractable nausea which made it difficult for you to eat at home. You were treated with medications to help your nausea, also known as antiemetics, and we conducted several lab and imaging studies to determine the cause of your symptoms. We also consulted with our gastroenterology specialist, who evaluated you as well. During this evaluation, it was discovered that you have gastritis, or an inflammation of your stomach, so we started you on 2 medications (see below: #1, #2). Now that you are tolerating oral intake consistently, we feel that you are ready to be safely discharged home. 1. We sent a medication called pantoprazole, or Protonix to your pharmacy. Please take Protonix 40 mg once daily, ideally before breakfast. 2. We sent a medication called famotidine, or Pepcid to your pharmacy. Please take Pepcid 20 mg twice daily, ideally before breakfast and dinner. 3. We sent a prescriptions of ondansetron, or Zofran to pharmacies. We have also printed out (and provided to you) some coupons for you to obtain these medications [id number]. You are also able to fill your initial Zofran prescription at [facility], for 12 tablets. 4. It is very important that you follow-up with your primary care physician (PCP), Dr. Brush. An appointment should be made for you by our fly setter. However, if you have not heard from your PCP's clinic regarding a follow-up appointment within 2-3 business days, you may call her office at [phone]. 5. An appointment should be made for you with [facility] outpatient clinic for additional GI studies. If you have not heard from the GI clinic about upcoming tests/studies within 2-3 business days, you may contact their office at [phone]. It has been a pleasure to care for you here at [facility]. If you have any questions or concerns about your care, you may reach out to us at [phone]. Pending Studies at Discharge: No Stand-Alone Forms: My [facility] [employer], Smoking Cessation Medications and DC Order Prescriptions: New ondansetron 8 mg tablet,disintegrating 8 mg PO Q6H PRN (Reason: nausea and vomiting) 4 Days Qty: 20 0RF ondansetron 8 mg tablet,disintegrating 8 mg PO Q6H PRN (Reason: nausea and vomiting) 4 Days Qty: 20 0RF famotidine 20 mg Tablet 20 mg PO BID 30 Days Qty: 60 0RF pantoprazole 40 mg Tablet,Delayed Release (Dr/Ec) 40 mg PO QAM 30 Days Qty: 30 0RF Continued ondansetron 8 mg tablet,disintegrating 8 mg PO Q12H Qty: 60 1RF peg 3350-electrolytes [GaviLyte-G] 236-22.74-6.74 -5.86 gram recon soln 240 ml PO Q10M Qty: 4000 0RF Rx Instructions: until fecal effluent is clear (DME) Wheelchair (Manual) Device See Rx Instructions .Route Qty: 1 0RF Rx Instructions: As directed fluoxetine [Prozac] 20 mg capsule 40 mg PO DAILY trazodone 150 mg tablet 150 mg PO DAILY oxycodone-acetaminophen 10-325 mg tablet 1 tab PO Q8H PRN (Reason: Pain) clonazepam 1 mg tablet 1 mg PO DAILY buspirone 30 mg tablet 15 mg PO BID topiramate 100 mg capsule,extended release 24hr 200 mg PO BID sumatriptan succinate [Imitrex] 50 mg Tablet 50 mg PO UD PRN (Reason: Migraine Headache) Rx Instructions: take 1 tab at onset of headache; if no relief may repeat 1 tab after at least 2 hrs; max = 4 tabs/24 hr Admission Data Admit Date/Time: 07/04/23 16:54 Attending Provider: Ayla Mullins Admit Provider: Dallas Lorenzo Primary Care Provider: Ying Brush Other Providers: Dallas Lorenzo; Micah Solano
[2023-07-14] MEDS: DICYCLOMINE HCL 10 MG CAP PO ONE ×2 (11:28→17:13)
--- NOTE | 2023-07-14 17:29 | Hospitalist Progress Note ---
Date of Service July 14, 2023 Assessment & Plan (1) Nausea, vomiting and diarrhea: Plan: 52 F with chronic, persistent nausea/vomiting, abdominal pain, and diarrhea x 6 months, who presents to the emergency room with profound weakness 2/2 poor oral intake. Admitted to the hospital for management of hypokalemia, evaluation of persistent abdominal pain/nausea. Nausea/Vomiting/Diarrhea/Abdominal Pain -Chronic, persistent; unknown etiology -Etiology unclear. Based on HPI, physical exam suspect current symptomatology is largely anxiety/stress driven. However, initial trigger is likely gastrointestinal in origin. Therefore, cannot exclude dysmotility, inflammatory causes like severe celiac, IBS, or endocrine. Lower suspicion for functional dyspepsia given diarrhea. Suspect trigger points may be partially responsible. -Also considering, though not at this time, endocrinologic/neoplastic causes: Pancreatic insufficiency, neuroendocrine/pancreatic tumor. Will consider if initial workup noncontributory. -Initiated expanded diagnostic workup: Stool panel negative, a.m. cortisol mildly elevated, iron profile normal, ESR/CRP negative. Remaining workup results pending (see below): -Completed bedside trigger point injection 07/04 immediately proximal to umbilicus. -Endoscopy showed gastritis but was otherwise nondiagnostic. -HIDA scan negative for gallbladder abnormalities, though scan performed without EF. May repeat in outpatient setting. -Gastric emptying study tentatively scheduled to be performed in outpatient setting. GI to schedule. * fecal calprotectin and fecal fat pending * stool panel, IgA TTG neg * US gallbladder WNL; HIDA scan WNL- may consider repeat with EF as outpatient; would also plan for outpatient gastric emptying study * Pain control regimen: Continue home Percocet as needed * switched IV anti-emetics to oral zofran and compazine in anticipation of going home * continue pantoprazole 40 mg daily and famotidine 20 mg BID * Voltaren gel as needed for trigger point pain * Started on bentyl 10mg ACHS with mild improvement of symptoms Gastritis -Unclear if acute or chronic. Discovered on upper GI endoscopy. * Protonix p.o. 40 mg daily * Famotidine p.o. 20 mg twice daily Anxiety/Depression -Chronic * Continue home fluoxetine, buspirone, clonazepam Hypomagnesemia- resolved - replete PRN; no signs of refeeding syndrome Hypokalemia- resolved -K 2.9 on admission. Mg 1.8. S/p repletion x 10 mEq K in the ED and 40 mEq upon admission -Lethargy, weakness, but no focal deficits or evidence of ambulatory dysfunction on exam. -No arrhythmias on EKG Code: Full Dispo: med/surg. Tentative discharge 07/14 FEN/GI: Regular as tolerated DVT Prophylaxis: Lovenox 40 mg q24h Consults: GI (2) Acute hypokalemia: (3) Depression: (4) Hypomagnesemia: Admission and Anticipated Discharge Date Admission Date: July 04, 2023 Supervising Physician Co-Signing Physician Notes I personally examined the patient and verified banks points of history and exam, discussed case, and agree with decision making and plan documented by Dr. Guerrero. Patient with continued nausea and abdominal pain today. Reviewed multimodal approach to treating longstanding (10+ months) symptoms which she described as "extreme painful nausea" limiting her ability to eat and function. Patient did not find benefit with p.o. Compazine. Patient remains reliant on Zofran as antiemetic. Discussed continuing Protonix as PPI and utilizing famotidine as needed, reviewed reactive gastropathy on EGD, discussed long-term effects of these medications. We reviewed QT prolonging effects of this medication. Patient trialed dicyclomine for antispasmodic effects with food today, patient unsure if this is efficacious however did have less pain with continued nausea. Encouraged patient that if she does wish to pursue medical cannabinoids that she would benefit from certification as well as consultation with pharmacist at dispensary for guidance on routes of administration and dosage. Encourage continued efforts to maintain p.o. hydration and nutrition. Reviewed that coconut water may be a good fluid for hydration given electrolytes if patient not tolerating Pedialyte. Reviewed at length the impact of stress on the body and the psychosomatic effects anxiety may have on the digestive system. Patient hopeful for discharge tomorrow to follow-up with PCP and establish outpatient with correctional officer lieutenant. Subjective Patient seen at bedside, calm comfortable cooperative. Patient doing better today, stands she typically responds better to higher doses of zofran. Interested in trying Bentyl. Still hesitant of returning home, understands we have no further work up awaiting in the hospital, patient states she would like to discuss her case with Dr. Lorenzo. Physical Exam Constitutional: well developed and well nourished ENMT: external ear and nose normal, oropharynx normal Respiratory: normal respiratory effort, lungs clear to auscultation Cardiovascular: RRR, no murmur, no edema Gastrointestinal (Abdomen): Inspection/Auscultation: abdomen normal to inspection Percussion/Palpation: + abdomen tender (epigastric, umbilical region) and abdomen soft Skin: no rashes, warm and dry Results & Data Results & Data Vital Signs (Past 12 Hours) Vital Signs Temp Pulse Resp BP Pulse Ox O2 Del Method 07/14/23 07:37 36.6 C 60 16 112/68 99 Room Air Resident Activity Tracking Resident Involvement: Resident Care Provided Care Provided: Adult Hospital Medicine (3) Depression Active/Remission status: currently active Depression Type: major depressive disorder Major depression episode severity: severe Major depression recurrence: unspecified whether recurrent Psychotic features: without psychotic features Qualified Code(s): F32.2 - Major depressive disorder, single episode, severe without psychotic features
[2023-07-14] MEDS: DICYCLOMINE HCL 10 MG CAP PO SCH (21:03)
[2023-07-15] MEDS ORDERED: DICYCLOMINE HCL 10 MG CAP PO SCH (07:30)
--- NOTE | 2023-07-15 16:44 | Discharge Summary ---
Date of Service July 15, 2023 Admission HPI Per Admitting Provider Radha is a 52-year-old woman with a past medical history of migraines, anxiety, depression, and a history of as of yet undiagnosed persistent nausea/vomiting and abdominal pain since September 2022, who presented to the emergency room for profound weakness and persistent vomiting stemming from the aforementioned persistent abdominal pain. Patient has previously followed with gastroenterology, psychiatry, and rheumatology in advance for unsuccessful attempt to diagnose her condition. She presented to the emergency room despite being tentatively scheduled for an upper and lower endoscopy next week, because her symptoms had worsened to the point where she is no longer able to tolerate any foods and liquids at this point. She also rates abdominal pain/discomfort at 7/10 in the emergency room. She denies dysuria, urinary frequency, hematuria, dysphagia, hematochezia, feculent emesis, hematemesis, alcohol consumption, cannabis use, or AMS. ROS + weight loss (30+ lbs), and stress. No family history (patient was adopted) On arrival, vital signs were almost entirely within normal limits and stable (EKGsinus bradycardia). Lab workup revealed only significant hypokalemia (K+ 2.9) rest of CMP (lipase, AST/ALT, bilirubin) was normal. CBC, Mg, PT/INR were also all normal. CT abdomen pelvis with contrast was unremarkable, and was negative for bowel obstruction. She received IV potassium repletion, IV Toradol for pain, and IV maintenance LR. When asked to characterize her symptoms on admission, she specifically describes a sore, "hungry-like" midline abdominal pain both alleviated and aggravated by food (pattern is random and neither symptom is tied to a particular food). Abdominal pain is also worsened by lying down, and stress usually on awaking. Her nausea is constant, with episodes of emesis triggered inconsistently by eating or drinking. She reports having 2-3 diarrheal episodes daily x6 months. Admission Exam Per Admitting Provider General: No acute distress HEENT: PERRLA. Normal conjunctiva, anicteric sclera. Oropharynx normal. Respiratory: Normal respiratory effort, CTABL. Cardiovascular: RRR without murmurs, gallops, or rubs. No pedal edema. GI: Soft abdomen with normal bowel sounds heard on auscultation. Moderately periumbilical tenderness with palpation. Also palpated small nodular mass immediately proximal to umbilicus. Neuro: Alert and oriented x3. Principal Diagnosis Functional Dyspepsia, Nausea Discharge Exam Constitutional WD/WN, vitals as above Eyes + anicteric sclerae; no conjunctival abnormality ENMT Ears: no external ear abnormality Nose: no external nose abnormality Moist mucous membranes Respiratory normal respiratory effort, lungs clear to auscultation Cardiovascular Rate/Rhythm: regular rate and regular rhythm Extremities: no edema Gastrointestinal (Abdomen) Inspection/Auscultation: normal bowel sounds Percussion/Palpation: + abdomen tender (tenderness at epigastric region) and abdomen soft Skin no rashes, warm and dry Neurologic no focal motor deficits Psychiatric A+Ox3, euthymic affect Discharge Data Allergies Allergy/AdvReac Type Severity Reaction Status Date / Time gabapentin Allergy Severe "EVERY Verified 07/09/23 10:25 SIDE AFFECT YOU CAN GET WITH THIS DRUG" pregabalin Allergy Severe "EVERY Verified 07/09/23 10:25 SIDE AFFECT YOU CAN GET WITH THIS DRUG" trazodone AdvReac Unknown Gastrointestinal Verified 07/09/23 10:26 Upset Consultations 07/03/23 09:09 ED Decision to Admit Stat 07/03/23 10:53 Consult Gastroenterology Routine Procedures Performed Operation Date: 07/09/23 10:15 Actual Procedures p EGD Biopsy Cytology - Jerrod Luna MD s Colonoscopy Biopsy Cytology - Jerrod Luna MD Ordered Studies 07/03/23 07:23 CT abd pelvis IV con only Stat 07/08/23 10:20 US gallbladder Routine Abdomen/Pelvis CT 07/03/23 07:23 CT abd pelvis IV con only CLINICAL HISTORY: Central abd pain TECHNIQUE: Helical axial images of the abdomen and pelvis were obtained and displayed. Automated dose lowering techniques and/or adjustment according to patient size were utilized for this exam. This exam was performed with intravenous contrast. CT DOSE: 294.42 mGy.cm COMPARISON: Comparison is made to CT abdomen pelvis 06/07/2023 FINDINGS: Lower chest: Bibasilar atelectasis versus scarring is seen. Liver: Unremarkable. No focal lesions are seen. Gallbladder and biliary tree: No calcified gallstones. Normal caliber wall. No intra- or extrahepatic biliary ductal dilation. Pancreas: Unremarkable, no focal lesions. Spleen: Unremarkable. Adrenals: Unremarkable. Kidneys and ureters: Unremarkable. Bladder: Unremarkable. Reproductive organs: Unremarkable. Bowel: The appendix is not well-visualized, however no secondary signs for appendicitis are seen. Lymph nodes Retroperitoneal: Unremarkable. Pelvic: Unremarkable. Mesenteric: Unremarkable. Peritoneum: Trace free fluid in the pelvis is likely physiologic. Vessels: Unremarkable. Abdominal wall: Unremarkable. Bones: Degenerative changes in the visualized spine. IMPRESSION: Evaluation is limited by a paucity of abdominal fat. Within this limit, and there is no acute abnormality, in particular no evidence of bowel obstruction. ACT 112: Negative or not required by law. Electronically signed by: Rohan Gutiérrez M.D. 07/03/2023 9:14 AM KUB X-Ray 07/03/23 12:49 KUB CLINICAL HISTORY: n/v/d COMPARISON STUDY: CT of the abdomen and pelvis performed earlier today. FINDINGS: Incidental note is made of excreted contrast within the collecting systems, ureters and bladder from recent contrast-enhanced CT. The bowel gas pattern is normal. Amount of stool is within normal limits. No evidence for free air on supine exam. IMPRESSION: Unremarkable KUB. No evidence for a bowel obstruction. ACT 112: Negative or not required by law. Electronically signed by: Gopal Root M.D. 07/03/2023 2:01 PM Gallbladder Ultrasound 07/08/23 10:20 ABDOMINAL ULTRASOUND, RIGHT UPPER QUADRANT HISTORY: chronic nausea/vomiting. COMPARISON: Abdomen and pelvis CT 07/03/2023. FINDINGS: Pancreas: The pancreas demonstrates a normal echotexture. Liver: Unremarkable. Gallbladder: No gallbladder wall thickening. No gallstones. CBD: 4 mm. Right kidney: No hydronephrosis. IMPRESSION: No significant abnormality identified within the right upper quadrant. ACT 112: Negative or not required by law. Electronically signed by: Satya Webber M.D. 07/08/2023 3:08 PM Hepatobiliary Scan Nuclear Medicine 07/11/23 10:00 NUCLEAR MEDICINE HEPATOBILIARY SCAN HISTORY: nausea, vomiting COMPARISON: Abdominal ultrasound 07/08/2023. TECHNIQUE: Immediately following the intravenous administration of 4.5 mCi Tc- 99m Choletec, dynamic anterior abdominal imaging was performed. FINDINGS: Uniform hepatic tracer accumulation is shown. Prompt intrahepatic biliary excretion is seen. The gallbladder, common bile duct, and small bowel are all visualized by 45 minutes. This appearance represents the normal sequence of biliary excretion. IMPRESSION: 1. No evidence for cystic duct obstruction. ACT 112: Negative or not required by law. Electronically signed by: Satya Webber M.D. 07/11/2023 10:34 AM Hospital Course (1) Nausea, vomiting and diarrhea: 52 F with chronic, persistent nausea/vomiting, abdominal pain, and diarrhea x 6 months, who presents to the emergency room with profound weakness 2/2 poor oral intake. Admitted to the hospital for management of hypokalemia, evaluation of persistent abdominal pain/nausea. Nausea/Vomiting/Diarrhea/Abdominal Pain -Chronic, persistent; likely multifactorial with functional dyspepsia, trigger points, and subsequent mild gastritis as contributing factors. -Initiated expanded diagnostic workup: Stool panel negative, a.m. cortisol mildly elevated, iron profile normal, ESR/CRP negative. Remaining workup results pending (see below): -Completed bedside trigger point injection 07/04 immediately proximal to umbilicus. -Endoscopy showed gastritis but was otherwise nondiagnostic. -HIDA scan negative for gallbladder abnormalities, though scan performed without EF. -Gastric emptying study considered, but after discussion with patient- we anticipate that it would be "mildly positive" and would not significantly change course of treatment. * fecal calprotectin and fecal fat pending at time of discharge * stool panel, IgA TTG neg * US gallbladder WNL; HIDA scan WNL * Pain control regimen: Continue home Percocet as needed, encouraged avoiding if possible * switched IV anti-emetics to oral Zofran which she has tolerated well * Continue pantoprazole 40 mg daily and famotidine 20 mg BID -Plan for 1 month of famotidine, anticipate 2-3 months of Pantoprazole daily * Voltaren gel as needed for trigger point pain * Started on Bentyl 10mg ACHS with mild improvement of symptoms, will continue this new medication at time of discharge Gastritis -Unclear if acute or chronic. Discovered on upper GI endoscopy. * Protonix p.o. 40 mg daily * Famotidine p.o. 20 mg twice daily Anxiety/Depression -Chronic * Continue home fluoxetine, buspirone, clonazepam Hypomagnesemia- resolved -Repleted; no signs of refeeding syndrome Hypokalemia- resolved -K 2.9 on admission. Mg 1.8. S/p repletion x 10 mEq K in the ED and 40 mEq upon admission -Lethargy, weakness, but no focal deficits or evidence of ambulatory dysfunction on exam. -No arrhythmias on EKG (2) Acute hypokalemia: (3) Depression: (4) Hypomagnesemia: Total Time Total Time Spent Total Time Spent (In Minutes): . <30 Discharge Plan Discharge Items Patient Disposition: Home - Self-Care Reason For Visit: INTRACTABLE VOMITING Discharge Diagnosis: Intractable vomiting of unknown etiology, weight loss Activity: Per Instructions section Non-emergency contact: Primary Care Provider Call non-emergency contact if: you have any medication questions and your symptoms worsen Follow-up/Referrals: Micah Solano DO [Physician] - 07/25/23 3:00 pm (W/ Cecily Ruiz ) Ying Brush DO [Primary Care Provider] - 07/17/23 1:45 pm (w/ June Rios ) Diet: Regular Addtl Attending Provider Instructions: Dear Radha, You came to the hospital because of your intractable nausea which made it difficult for you to eat at home. You were treated with medications to help your nausea, also known as antiemetics, and we conducted several lab and imaging studies to determine the cause of your symptoms. We also consulted with our gastroenterology specialist, who evaluated you as well. During this evaluation, it was discovered that you have gastritis, or an inflammation of your stomach, so we started you on 2 medications (see below: #1, #2). Now that you are tolerating oral intake consistently, we feel that you are ready to be safely discharged home. As we discussed, we are treating your symptoms as functional dyspepsia and this will be an ongoing process that will involve multiple modalities. We also recommend pursuing biofeedback treatment i.e. at [facility]". 1. We sent a medication called pantoprazole, or Protonix to your pharmacy. Please take Protonix 40 mg once daily, ideally before breakfast. You will continue this for at least two months. 2. We sent a medication called famotidine, or Pepcid to your pharmacy. Please take Pepcid 20 mg twice daily, ideally before breakfast and dinner. You will take this for at least 1 month. 3. We sent a prescriptions of ondansetron, or Zofran to your pharmacy. 4. We sent a prescription of Bentyl, or dicyclomine to your pharmacy. You can take this prior to meals. 4. It is very important that you follow-up with your primary care physician (PCP), Dr. Brush. An appointment should be made for you by our outsole scheduler. However, if you have not heard from your PCP's clinic regarding a follow-up appointment within 2-3 business days, you may call her office at [phone]. It has been a pleasure to care for you here at [facility]. If you have any questions or concerns about your care, you may reach out to us at [phone]. Pending Studies at Discharge: No Stand-Alone Forms: My [facility], Smoking Cessation Medications and DC Order Prescriptions: New ondansetron 8 mg tablet,disintegrating 8 mg PO Q6H PRN (Reason: nausea and vomiting) 4 Days Qty: 20 0RF ondansetron 8 mg tablet,disintegrating 8 mg PO Q6H PRN (Reason: nausea and vomiting) 4 Days Qty: 20 0RF famotidine 20 mg Tablet 20 mg PO BID 30 Days Qty: 60 0RF pantoprazole 40 mg Tablet,Delayed Release (Dr/Ec) 40 mg PO QAM 30 Days Qty: 30 0RF dicyclomine 10 mg Capsule 10 mg PO ACHS 30 Days Qty: 90 0RF Continued ondansetron 8 mg tablet,disintegrating 8 mg PO Q12H Qty: 60 1RF peg 3350-electrolytes [GaviLyte-G] 236-22.74-6.74 -5.86 gram recon soln 240 ml PO Q10M Qty: 4000 0RF Rx Instructions: until fecal effluent is clear (DME) Wheelchair (Manual) Device See Rx Instructions .Route Qty: 1 0RF Rx Instructions: As directed fluoxetine [Prozac] 20 mg capsule 40 mg PO DAILY trazodone 150 mg tablet 150 mg PO DAILY oxycodone-acetaminophen 10-325 mg tablet 1 tab PO Q8H PRN (Reason: Pain) clonazepam 1 mg tablet 1 mg PO DAILY buspirone 30 mg tablet 15 mg PO BID topiramate 100 mg capsule,extended release 24hr 200 mg PO BID sumatriptan succinate [Imitrex] 50 mg Tablet 50 mg PO UD PRN (Reason: Migraine Headache) Rx Instructions: take 1 tab at onset of headache; if no relief may repeat 1 tab after at least 2 hrs; max = 4 tabs/24 hr Discharge Orders: Discharge Order (Routine); Ordered 07/15/23 Ordered By: Margie Albert Admission Data Admit Date/Time: 07/04/23 16:54 Attending Provider: Dallas Lorenzo Admit Provider: Dallas Lorenzo Primary Care Provider: Ying Brush Other Providers: Dallas Lorenzo; Case,Micah Aquino Other Interventions: Discharge Summary Assessment (RN) Last Done: 07/15/23 15:24 Supervising Physician Co-Signing Physician Notes I personally examined the patient and verified all banks points of history and exam, discussed case, and agree with decision making with Dr Albert Feeling open to going home. Extensive discussion on ongoing management. Vitals noted, in general she is awake and alert pleasant no distress. HEENT normocephalic atraumatic mucous membranes moist. Breathing unlabored no accessory muscle use good effort. Skin shows no rashes no pallor or icterus. Neuro without focal deficits. Abdominal pain/nausea vomiting/protein/calorie malnutrition ---> improving and stable for home, symptoms likely multifactorial functional dyspepsia: This appears to be the biggest contributor. Discussed the mind-body approach, for now continue with as needed Zofran and as needed Bentyl given that they seem to be helping her symptoms. Discussed in depth that there is generally not a "magic bullet" for this kind of diagnosis and that desensitization (i.e. eating in spite of symptoms) and trying to live a normal life in spite of the symptoms are likely to be far more helpful than pursuing different lines of treatment. Discussed that certainly medications can be adjusted with "educated trial and error" but with this kind of diagnosis, often people chasing for a "fix" fail to improve because so much of the improvement comes from a mind-body approach. Recommended biofeedback and/or pain psychology gastritis: I suspect the gastritis was really largely affected from being so sick, but given that it was there, it was probably also a bit of a causebut made it clear to the patient that I really do not think the gastritis/peptic ulcer disease was the driving factor in her illness, but rather a consequent problem from her illness that then would have kept her symptoms going. Acid suppression for a few months, but likely not much benefit in the long-term abdominal wall trigger points: Probably also a contributing factor, trigger point injections performed on 07/04, and can be repeated as an outpatient, has been utilizing Voltaren gel anxiety: We discussed the anxiety as an amplifier ("not the song, but just the volume knob")and that it would be normal for her to feel a little bit worse going home given that that will likely amplify the anxiety. Continue to follow closely with PCP, continue working on all of the above, trying to live as normal life as she can stable for home, close and ongoing PCP follow-up
--- NOTE | 2023-07-15 19:23 | Billing Data ---
Date of Service July 15, 2023 Coding Level of Care Code 92616 IN/OBS DISCH 30 MIN/LESS
--- NOTE | 2023-07-15 19:24 | Billing Data ---
Date of Service July 15, 2023 Coding Level of Care Code 34709 IN/OBS DISCH 30 MIN/LESS
== END 2023-07-15 16:12 | disposition home or self-care (01) | DRG 391 ==
LOC: 3W 06:15 → ED 06:15 → 3W 10:25 → SUATTDRO 07-04 16:54
DX: E83.42 Hypomagnesemia; Z79.899 Other long term (current) drug therapy; G43.909 Migraine, unspecified, not intractable, without status migrainosus; Z87.11 Personal history of peptic ulcer disease; E43 Unspecified severe protein-calorie malnutrition; M79.18 Myalgia, other site; K30 Functional dyspepsia; R64 Cachexia; Z88.8 Allergy status to other drugs, medicaments and biological substances; F32.A Depression, unspecified; E87.6 Hypokalemia; R11.2 Nausea with vomiting, unspecified; F41.9 Anxiety disorder, unspecified; R10.9 Unspecified abdominal pain; Z68.1 Body mass index [BMI] 19.9 or less, adult; K29.70 Gastritis, unspecified, without bleeding; K52.9 Noninfective gastroenteritis and colitis, unspecified